=== PATIENT | male | born 1960 | race Two or more races ===

== ENCOUNTER 2020-08-11 10:10 | Inpatient (IN) | payer MEDICAID ==
[~2020-08-11] VITALS: Ht 154.9 cm; Wt 68.0 kg
[2020-08-11] MEDS ORDERED: Mylanta II UD 30ml ORAL ONE (10:15)
[2020-08-11] MEDS ORDERED: Lidocaine 2% Visc 15ml soln ORAL ONE (10:15)
[2020-08-11] MEDS ORDERED: Dicyclomine HCl 10mg/5ml oral soln ORAL ONE (10:15)
--- NOTE | 2020-08-11 10:21 | Emergency Room Report ---
History of Present Illness General Chief Complaint: Abdominal Pain Present Illness HPI 60-year-old homeless man with no known past medical history here with abdominal pain for 2 days. Patient says the abdominal pain is worse in the epigastric region. Radiates diffusely. Says he feels his abdomen is distended as well. Denies recent alcohol or drug use. Says he has been sleeping on the streets. Pain is sharp in nature, located in the epigastric region, radiates diffusely to the entire abdomen. Has felt nauseous but is not vomited. No diarrhea. Had n ormal bowel movement yesterday. No fevers, chills, chest pain, palpitation, shortness of breath, back pain, diarrhea, dysuria. 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 COVID-19 Screening: Negative COVID-19 COVID-19 Testing Source: [employer] Review of Systems All Other Systems: negative except mentioned in HPI Physical Exam Vital Signs Date Time Temp Pulse Resp B/P (MAP) Pulse Ox O2 Delivery O2 Flow Rate FiO2 08/11/20 10:06 99.0 85 18 150/90 (110) 98 Room Air Sp02 EP Interpretation: reviewed, normal General Appearance: alert, GCS 15, non-toxic, moderate distress, other - Pain Head: normocephalic, atraumatic Eyes: bilateral eye normal inspection, bilateral eye PERRL ENT: hearing grossly normal, normal pharynx, no angioedema, normal voice Neck: full range of motion, supple/symm/no masses Respiratory: chest non-tender, lungs clear, normal breath sounds, speaking full sentences Cardiovascular #1: regular rate, rhythm, no edema Cardiovascular #2: 2+ carotid (R), 2+ carotid (L), 2+ radial (R), 2+ radial (L), 2+ dorsalis pedis (R), 2+ dorsalis pedis (L) Gastrointestinal: normal bowel sounds, non-distended, no rebound, other - Epigastric pain, diffuse guarding. Abdomen distended Rectal: deferred Genitourinary: normal inspection, no CVA tenderness Musculoskeletal: back normal, normal range of motion, gait/station normal, non- tender Neurologic: alert, motor strength/tone normal, oriented x3, sensory intact, responsive, speech normal Psychiatric: judgement/insight normal, memory normal, mood/affect normal, no suicidal/homicidal ideation Lymphatic: no adenopathy Medical Decision Making Diagnostic Impression: Primary Impression: Pancreatitis Additional Impressions: Cholelithiasis Transaminitis Elevated bilirubin ER Course Right upper quadrant ultrasound: Gallstones within the gallbladder and one near the gallbladder neck. Mild gallbladder wall thickening. No pericholecystic fluid. Normal CBD CT abdomen pelvis: Peripancreatic inflammatory changes suggesting acute pancre atitis. No fluid collection or pseudocyst. Duodenal wall thickening likely secondary to pancreatic inflammation. Cholelithiasis. No appreciable gallbladder wall thickening or pericholecystic inflammatory changes. No biliary ductal dilatation Laboratory Tests Test 08/11/20 10:17 White Blood Count 11.3 K/UL (4.8-10.8) H Red Blood Count 5.90 M/UL (4.70-6.10) Hemoglobin 15.6 G/DL (14.2-18.0) Hematocrit 48.0 % (42.0-52.0) Mean Corpuscular Volume 81 FL (80-99) Mean Corpuscular Hemoglobin 26.5 PG (27.0-31.0) L Mean Corpuscular Hemoglobin Concent 32.5 G/DL (32.0-36.0) Red Cell Distribution Width 13.3 % (11.6-14.8) Platelet Count 149 K/UL (150-450) L Mean Platelet Volume 13.0 FL (6.5-10.1) H Neutrophils (%) (Auto) 78.6 % (45.0-75.0) H Lymphocytes (%) (Auto) 13.9 % (20.0-45.0) L Monocytes (%) (Auto) 6.4 % (1.0-10.0) Eosinophils (%) (Auto) 0.3 % (0.0-3.0) Basophils (%) (Auto) 0.7 % (0.0-2.0) Urine Color Yellow Urine Appearance Clear Urine pH 5 (4.5-8.0) Urine Specific [place] 1.015 (1.005-1.035) Urine Protein 1+ (NEGATIVE) H Urine Glucose (UA) 1+ (NEGATIVE) H Urine Ketones Negative (NEGATIVE) Urine Blood 1+ (NEGATIVE) H Urine Nitrite Negative (NEGATIVE) Urine Bilirubin 1+ (NEGATIVE) H Urine Ictotest Positive (NEGATIVE) Urine Urobilinogen 4 MG/DL (0.0-1.0) H Urine Leukocyte Esterase Negative (NEGATIVE) Urine RBC 0-2 /HPF (0 - 0) H Urine WBC 0-2 /HPF (0 - 0) Urine Squamous Epithelial Cells Occasional /LPF Urine Bacteria Occasional /HPF (NONE) Sodium Level 138 MMOL/L (136-145) Potassium Level 3.6 MMOL/L (3.5-5.1) Chloride Level 104 MMOL/L (98-107) Carbon Dioxide Level 22 MMOL/L (21-32) Anion Gap 12 mmol/L (5-15) Blood Urea Nitrogen 11 mg/dL (7-18) Creatinine 0.9 MG/DL (0.55-1.30) Estimated Glomerular Filtration Rate > 60 mL/min (>60) Glucose Level 157 MG/DL (74-106) H Calcium Level 8.7 MG/DL (8.5-10.1) Total Bilirubin 2.4 MG/DL (0.2-1.0) H Direct Bilirubin 1.9 MG/DL (0.0-0.3) H Aspartate Amino Transferase (AST) 590 U/L (15-37) H Alanine Aminotransferase (ALT) 513 U/L (12-78) H Alkaline Phosphatase 151 U/L (46-116) H Troponin I 0.000 ng/mL (0.000-0.056) Total Protein 7.9 G/DL (6.4-8.2) Albumin 3.8 G/DL (3.4-5.0) Globulin 4.1 g/dL Albumin/Globulin Ratio 0.9 (1.0-2.7) L Lipase > 2000 U/L (73-393) H Urine Opiates Screen Negative (NEGATIVE) Urine Barbiturates Screen Negative (NEGATIVE) Phencyclidine (PCP) Screen Negative (NEGATIVE) Urine Amphetamines Screen Negative (NEGATIVE) Urine Benzodiazepines Screen Negative (NEGATIVE) Urine Cocaine Screen Negative (NEGATIVE) Urine Marijuana (THC) Screen Negative (NEGATIVE) Serum Alcohol < 5 mg/dL 60-year-old male here with abdominal pain. Patient normal vital signs in the emergency department with normal oxygen saturation on room air. He was writhing in pain with severe abdominal pain. He was given morphine, Ativan, Haldol with eventual resolution of his symptoms. Labs remarkable for highly elevated lipase greater than 2000 and highly elevated liver function enzymes, AST and ALT in the 500s. Elevated direct and indirect bilirubin. Patient says he drinks alcohol occasionally but is not a daily drinker. Ultrasound right upper quadrant showed cholelithiasis but did not show any evidence of cholecystitis. CT abdomen pelvis showed pancreatitis without cholecystitis. Still some concern of possible gallstone pancreatitis. No other labs are available for comparison. Patient was given a single dose of Zosyn. Blood cultures pending. Urinalysis did show evidence of urinary tract infection. General surgeon Dr. Jean was informed. Patient to be [facility]. Last Vital Signs Date Time Temp Pulse Resp B/P (MAP) Pulse Ox O2 Delivery O2 Flow Rate FiO2 08/11/20 10:06 99.0 85 18 150/90 (110) 98 Room Air Scripts Unable to Obtain Active Prescriptions or Reported Meds David Taylor M.D. Aug 11, 2020 10:21
[2020-08-11] MEDS ORDERED: LORazepam Inj 2mg/ml 1ml IV ONE (10:30)
[2020-08-11] MEDS ORDERED: Morphine Sulfate 4mg/ml Inj (IV USE ONLY) IVP ONE (10:30)
[2020-08-11] MEDS ORDERED: Omnipaque-300 100ml vial INJ PRN (10:30)
[2020-08-11 10:34] LABS: BASOPHILS % (AUTO) 0.7 % (0.0-2.0); EOSINOPHILS % (AUTO) 0.3 % (0.0-3.0); HEMOGLOBIN 15.6 G/DL (14.2-18.0); LYMPHOCYTES % (AUTO) 13.9 % (20.0-45.0); MEAN CORPUSCULAR VOLUME 81 FL (80-99); MONOCYTES % (AUTO) 6.4 % (1.0-10.0); NEUTROPHILS % (AUTO) 78.6 % (45.0-75.0); PLATELET COUNT 149 K/UL (150-450); RED CELL DISTRIBUTION WIDTH 13.3 % (11.6-14.8); WHITE BLOOD COUNT 11.3 K/UL (4.8-10.8)
[2020-08-11] MEDS ORDERED: Haloperidol 5mg/ml Inj IM ONE ×2 (10:45)
[2020-08-11 10:46] LABS: ANION GAP 12 mmol/L (5-15); BLOOD UREA NITROGEN 11 mg/dL (7-18); CALCIUM 8.7 MG/DL (8.5-10.1); CARBON DIOXIDE 22 MMOL/L (21-32); CHLORIDE 104 MMOL/L (98-107); CREATININE 0.9 MG/DL (0.55-1.30); POTASSIUM 3.6 MMOL/L (3.5-5.1); SODIUM 138 MMOL/L (136-145)
[2020-08-11 10:55] LABS: ALANINE AMINOTRANSFERASE 513 U/L (12-78); ALBUMIN 3.8 G/DL (3.4-5.0); ALBUMIN/GLOBULIN RATIO 0.9 (1.0-2.7); ALKALINE PHOSPHATASE 151 U/L (46-116); ASPARTATE AMINO TRANSFERASE 590 U/L (15-37); BILIRUBIN,TOTAL 2.4 MG/DL (0.2-1.0)
[2020-08-11 10:59] LABS: BILIRUBIN,DIRECT 1.9 MG/DL (0.0-0.3)
--- NOTE | 2020-08-11 11:00 | NUR ---
ED Nurse Note:pt. came from home with abdominal pain and nausea, pt. is A/Ox4 ambulatory, VSS, blood and urine sent to labs, given IV meds and fluids, pt. had CT scan done
[2020-08-11 11:07] VITALS: BP 145/89
[2020-08-11 11:10] LABS: APPEARANCE,URINE CLEAR; BILIRUBIN, URINE 1+ (NEGATIVE); GLUCOSE, URINE (UA) 1+ (NEGATIVE); KETONES,URINE NEGATIVE (NEGATIVE); LEUKOCYTE ESTERASE ,URINE NEGATIVE (NEGATIVE); NITRITE,URINE NEGATIVE (NEGATIVE); PH,URINE 5 (4.5-8.0); PROTEIN,URINE 1+ (NEGATIVE); UROBILINOGEN,URINE 4 MG/DL (0.0-1.0)
[2020-08-11 11:22] LABS: COLOR,URINE YELLOW
[2020-08-11] MEDS ORDERED: Piperacillin/Tazobactam 3.375 GM in NS 110 ML IVPB ONE (11:30)
--- NOTE | 2020-08-11 12:16 | Diagnostic Imaging Report ---
Indication: Abdominal pain Technique: CT of the abdomen and pelvis utilizing automated exposure control with intravenous contrast. Venous scanning performed. Axial, sagittal and coronal reformats presented. CT dose: Total DLP 72.4 mGycm; CTDI vol 5.2 mGy Comparison: None Findings: Some patchy opacities noted in the dependent portions of the lungs. No dense consolidation. No pleural effusion or pneumothorax. Heart size within normal limits. No pericardial effusion. Hepatic contour is smooth. Cholelithiasis is seen. No gallbladder wall thickening or appreciable pericholecystic inflammatory changes. No biliary ductal dilatation. Hepatic veins and portal veins appear patent. Spleen and adrenal glands unremarkable. There is inflammatory stranding about the pancreas concerning for acute pancreatitis. Pancreatic enhancement appears uniform. No peripancreatic fluid collection. Inflammatory stranding is also noted around the second and third portions of the duodenum. The kidneys enhance symmetrically. There is no urinary tract stone or hydronephrosis. Bladder is unremarkable. Prostate is not significantly enlarged. There is no free intraperitoneal air. There is no evidence of bowel obstruction. Appendix is not definitively visualized however there is no findings to seen to suggest acute appendicitis. Some mildly prominent small bowel loops are noted which may be related to reactive ileus. There is a small hiatal hernia. The abdominal aorta is normal in caliber. Small retroperitoneal lymph nodes are seen, possibly reactive in etiology. Some calcifications are noted in the subcarinal region which may represent partially calcified lymph nodes. There are degenerative changes in the spine. No acute fracture. No subcutis fluid collection or abscess. IMPRESSION: * Peripancreatic inflammatory changes suggesting acute pancreatitis. Correlation with pancreatic enzymes recommended. No evidence to suggest pancreatic necrosis at this time. No peripancreatic fluid collection/pseudocyst. * Wall thickening and inflammatory changes about the second portion of the duodenum, likely secondary to pancreatic inflammation. * Some mildly prominent small bowel loops which may represent a mild reactive ileus. No evidence of small bowel obstruction. * Cholelithiasis. * Some patchy densities noted in the dependent portions of the lungs which may represent atelectatic changes. Subtle infiltrates not excluded. Correlation with clinical findings recommended. * Small hiatal hernia The CT scanner at [facility] is accredited by the [employer] and the scans are performed using protocols designed to limit radiation exposure to as low as reasonably achievable to attain images of sufficient resolution adequate for diagnostic evaluation.
--- NOTE | 2020-08-11 12:19 | Diagnostic Imaging Report ---
Indication: Abdominal pain Technique: Multiplanar grayscale and duplex Doppler imaging of the abdomen. Comparison: Correlation made to concurrent abdominal CT Findings: Pancreas is obscured by overlying bowel gas. Adjacent slightly increased echogenicity of the liver. Right hepatic lobe is normal in size. No focal hepatic mass lesion noted sonographically. Imaged hepatic veins are patent. Main portal vein is patent with normal direction of flow. There is cholelithiasis. No gallbladder wall thickening. Sonographic Olson's sign reported as negative. Some hypoattenuation is noted along the gallbladder fossa which may represent focal fatty sparing. No intrahepatic or extra hepatic biliary ductal dilatation. Common bile duct measures 6 mm. Kidneys demonstrate normal echogenicity. There is no hydronephrosis or sonographically appreciable renal stone. Spleen is unremarkable in appearance. Limited evaluation of the abdominal aorta which is obscured by overlying bowel gas. Visualized portions appear normal caliber. No ascites is demonstrated. IMPRESSION: * Cholelithiasis. Negative sonographic Olson's sign. * No biliary ductal dilatation. * Increased hepatic echogenicity most commonly related to hepatic steatosis. Additional hepatocellular diseases to be excluded clinically. * Pancreas obscured by overlying bowel gas.
--- NOTE | 2020-08-11 13:05 | General Progress Note ---
Subjective ROS Limited/Unobtainable: Yes Allergies: Coded Allergies: No Known Allergies (Unverified , 08/11/20) Objective Last 24 Hour Vital Signs Date Time Temp Pulse Resp B/P (MAP) Pulse Ox O2 Delivery O2 Flow Rate FiO2 08/11/20 11:14 102 18 145/89 98 08/11/20 11:14 99.0 08/11/20 11:08 102 18 Room Air 08/11/20 11:07 99.0 102 18 145/89 98 Room Air 08/11/20 10:37 85 18 150/90 98 08/11/20 10:06 99.0 85 18 150/90 (110) 98 Room Air Laboratory Tests 08/11/20 10:17: White Blood Count 11.3H, Red Blood Count 5.90, Hemoglobin 15.6, Hematocrit 48.0, Mean Corpuscular Volume 81, Mean Corpuscular Hemoglobin 26.5L, Mean Corpuscular Hemoglobin Concent 32.5, Red Cell Distribution Width 13.3, Platelet Count 149L, Mean Platelet Volume 13.0H, Neutrophils (%) (Auto) 78.6H, Lymphocytes (%) (Auto) 13.9L, Monocytes (%) (Auto) 6.4, Eosinophils (%) (Auto) 0.3, Basophils (%) (Auto) 0.7, Urine Color Yellow, Urine Appearance Clear, Urine pH 5, Urine Specific [place] 1.015, Urine Protein 1+H, Urine Glucose (UA) 1+H, Urine Ketones Negative, Urine Blood 1+H, Urine Nitrite Negative, Urine Bilirubin 1+H, Urine Ictotest Positive, Urine Urobilinogen 4H, Urine Leukocyte Esterase Negative, Urine RBC 0-2H, Urine WBC 0-2, Urine Squamous Epithelial Cells Occasional, Urine Bacteria Occasional, Sodium Level 138, Potassium Level 3.6, Chloride Level 104, Carbon Dioxide Level 22, Anion Gap 12, Blood Urea Nitrogen 11, Creatinine 0.9, Estimat Glomerular Filtration Rate > 60, Glucose Level 157H, Calcium Level 8.7, Total Bilirubin 2.4H, Direct Bilirubin 1.9H, Aspartate Amino Transf (AST/SGOT) 590H, Alanine Aminotransferase (ALT/SGPT) 513H, Alkaline Phosphatase 151H, Troponin I 0.000, Total Protein 7.9, Albumin 3.8, Globulin 4.1, Albumin/Globulin Ratio 0.9L, Lipase > 2000H, Urine Opiates Screen Negative, Urine Barbiturates Screen Negative, Phencyclidine (PCP) Screen Negative, Urine Amphetamines Screen Negative, Urine Benzodiazepines Screen Negative, Urine Cocaine Screen Negative, Urine Marijuana (THC) Screen Negative, Serum Alcohol < 5 Height (Feet): 5 Height (Inches): 4.00 Weight (Pounds): 150 General Appearance: alert EENT: normal ENT inspection Neck: supple Cardiovascular: normal rate Respiratory/Chest: decreased breath sounds Abdomen: normal bowel sounds, non tender, soft Extremities: non-tender Assessment/Plan Problem List: (1) Cholelithiasis ICD Codes: K80.20 - Calculus of gallbladder without cholecystitis without obstruction SNOMED: 902415199, 199950423 (2) Pancreatitis ICD Codes: K85.90 - Acute pancreatitis without necrosis or infection, unspecified SNOMED: 54963261, 802879225 (3) Transaminitis ICD Codes: R74.01 - Elevation of levels of liver transaminase levels SNOMED: 192964893, 771057174 (4) Elevated bilirubin ICD Codes: R17 - Unspecified jaundice SNOMED: 21635232 Assessment/Plan: us and CT reviewed MRCP npo ivf pain control hepatitis panel repeat labs surg consult Thierno Dai MD Aug 11, 2020 13:04
--- NOTE | 2020-08-11 13:08 | Consultation ---
History of Present Illness General Date patient seen: Aug 11, 2020 Reason for Hospitalization: Abdominal Pain Present Illness HPI 60-year-old male presented [facility] complaining of worsening abdominal pain for 2 days. Intermittent nausea no current emesis. Identified to have leukocytosis elevated bilirubin LFTs and lipase. CT and ultrasound identified pancreatitis potentially gallstone with etiology. CBD otherwise normal. No positive Olson's. Surgery called to evaluate assist with care. Patient seen, patient evaluate, chart reviewed Allergies: Coded Allergies: No Known Allergies (Unverified , 08/11/20) COVID-19 Screening Contact w/high risk pt: No Experienced COVID-19 symptoms?: No Medication History Unable to Obtain Active Prescriptions or Reported Meds Patient History History Provided By: Patient, Medical Record, PMD Healthcare decision maker Resuscitation status Advanced Directive on File Past Medical/Surgical History Past Medical/Surgical History: (1) Cholelithiasis (2) Pancreatitis (3) Transaminitis (4) Elevated bilirubin Review of Systems Review of Symptoms General ROS: no weight loss or fever Psychological ROS: no depression or mood changes, no memory loss Ophthalmic ROS: no visual changes or eye irritation ENT ROS: no nasal congestion, hearing loss, dizziness Allergy and Immunology ROS: no allergic symptoms or urticaria Hematological and Lymphatic ROS: no swollen glands, unusual bleeding or bruising Endocrine ROS: no polyuria, polydipsia, weight changes, temperature intolerance Respiratory ROS: no cough, shortness of breath, or wheezing Cardiovascular ROS: no chest pain or dyspnea on exertion Gastrointestinal ROS: + abdominal pain, bright red blood in stool. Musculoskeletal ROS: no myalgias or arthralgias Neurological ROS: no TIA or stroke symptoms Dermatological ROS: no new or changing skin lesions, rashes or pruritis Physical Exam Physical Exam General appearance: alert, cooperative, no distress, appears stated age Head: Normocephalic, without obvious abnormality, atraumatic Eyes: conjunctivae/corneas clear. PERRL, EOM's intact. Fundi benign Throat: Lips, mucosa, and tongue normal. Teeth and gums normal Neck: supple, symmetrical, trachea midline, no adenopathy, thyroid: not enlarged, symmetric, no tenderness/mass/nodules, no carotid bruit and no JVD Lungs: clear to auscultation bilaterally Heart: regular rate and rhythm, S1, S2 normal, no murmur, click, rub or gallop Abdomen: soft, non-tender. Bowel sounds normal. No masses, no organomegaly Extremities: extremities normal, atraumatic, no cyanosis or edema Pulses: 2+ and symmetric Skin: Skin color, texture, turgor normal. No rashes or lesions Neurologic: Grossly normal Last 24 Hour Vital Signs Date Time Temp Pulse Resp B/P (MAP) Pulse Ox O2 Delivery O2 Flow Rate FiO2 08/11/20 11:14 102 18 145/89 98 08/11/20 11:14 99.0 08/11/20 11:08 102 18 Room Air 08/11/20 11:07 99.0 102 18 145/89 98 Room Air 08/11/20 10:37 85 18 150/90 98 08/11/20 10:06 99.0 85 18 150/90 (110) 98 Room Air Laboratory Tests Test 08/11/20 10:17 White Blood Count 11.3 K/UL (4.8-10.8) H Red Blood Count 5.90 M/UL (4.70-6.10) Hemoglobin 15.6 G/DL (14.2-18.0) Hematocrit 48.0 % (42.0-52.0) Mean Corpuscular Volume 81 FL (80-99) Mean Corpuscular Hemoglobin 26.5 PG (27.0-31.0) L Mean Corpuscular Hemoglobin Concent 32.5 G/DL (32.0-36.0) Red Cell Distribution Width 13.3 % (11.6-14.8) Platelet Count 149 K/UL (150-450) L Mean Platelet Volume 13.0 FL (6.5-10.1) H Neutrophils (%) (Auto) 78.6 % (45.0-75.0) H Lymphocytes (%) (Auto) 13.9 % (20.0-45.0) L Monocytes (%) (Auto) 6.4 % (1.0-10.0) Eosinophils (%) (Auto) 0.3 % (0.0-3.0) Basophils (%) (Auto) 0.7 % (0.0-2.0) Urine Color Yellow Urine Appearance Clear Urine pH 5 (4.5-8.0) Urine Specific [place] 1.015 (1.005-1.035) Urine Protein 1+ (NEGATIVE) H Urine Glucose (UA) 1+ (NEGATIVE) H Urine Ketones Negative (NEGATIVE) Urine Blood 1+ (NEGATIVE) H Urine Nitrite Negative (NEGATIVE) Urine Bilirubin 1+ (NEGATIVE) H Urine Ictotest Positive (NEGATIVE) Urine Urobilinogen 4 MG/DL (0.0-1.0) H Urine Leukocyte Esterase Negative (NEGATIVE) Urine RBC 0-2 /HPF (0 - 0) H Urine WBC 0-2 /HPF (0 - 0) Urine Squamous Epithelial Cells Occasional /LPF Urine Bacteria Occasional /HPF (NONE) Sodium Level 138 MMOL/L (136-145) Potassium Level 3.6 MMOL/L (3.5-5.1) Chloride Level 104 MMOL/L (98-107) Carbon Dioxide Level 22 MMOL/L (21-32) Anion Gap 12 mmol/L (5-15) Blood Urea Nitrogen 11 mg/dL (7-18) Creatinine 0.9 MG/DL (0.55-1.30) Estimat Glomerular Filtration Rate > 60 mL/min (>60) Glucose Level 157 MG/DL (74-106) H Calcium Level 8.7 MG/DL (8.5-10.1) Total Bilirubin 2.4 MG/DL (0.2-1.0) H Direct Bilirubin 1.9 MG/DL (0.0-0.3) H Aspartate Amino Transf (AST/SGOT) 590 U/L (15-37) H Alanine Aminotransferase (ALT/SGPT) 513 U/L (12-78) H Alkaline Phosphatase 151 U/L (46-116) H Troponin I 0.000 ng/mL (0.000-0.056) Total Protein 7.9 G/DL (6.4-8.2) Albumin 3.8 G/DL (3.4-5.0) Globulin 4.1 g/dL Albumin/Globulin Ratio 0.9 (1.0-2.7) L Lipase > 2000 U/L (73-393) H Urine Opiates Screen Negative (NEGATIVE) Urine Barbiturates Screen Negative (NEGATIVE) Phencyclidine (PCP) Screen Negative (NEGATIVE) Urine Amphetamines Screen Negative (NEGATIVE) Urine Benzodiazepines Screen Negative (NEGATIVE) Urine Cocaine Screen Negative (NEGATIVE) Urine Marijuana (THC) Screen Negative (NEGATIVE) Serum Alcohol < 5 mg/dL Height (Feet): 5 Height (Inches): 4.00 Weight (Pounds): 150 Medications Current Medications Medications (Trade) Dose Ordered Sig/[place] Route PRN Reason Start Time Stop Time Status Last Admin Dose Admin Dextrose/Sodium Chloride 1,000 ml @ 150 mls/hr Q6H40M IV 08/11/20 16:00 09/10/20 15:59 Iohexol (OMNIPAQUE-300 100ml) 100 ml NOW PRN INJ Radiology Procedure 08/11/20 10:30 08/13/20 10:29 Assessment/Plan Problem List: (1) Cholelithiasis ICD Codes: K80.20 - Calculus of gallbladder without cholecystitis without obstruction SNOMED: 048367202, 020276734 (2) Pancreatitis Assessment & Plan: 60-year-old male with likely gallstone pancreatitis. Afebrile hemodynamic stable leukocytosis elevated LFTs elevated bilirubin elevated lipase. CT reviewed pancreatitis identified. Ultrasound noted cholelithiasis no gallbladder wall thickening no Olson's no acute cholecystitis. CBD not dilated. Potential passage of stone. Admit for IV fluids n.p.o. bowel rest. Will trend LFTs. May need MRCP versus ERCP we will discuss with GI. N.p.o. for now IV fluids meds reviewed orders placed Some patchy opacities noted in the dependent portions of the lungs. No dense consolidation. No pleural effusion or pneumothorax. Heart size within normal limits. No pericardial effusion. Hepatic contour is smooth. Cholelithiasis is seen. No gallbladder wall thickening or appreciable pericholecystic inflammatory changes. No biliary ductal dilatation. Hepatic veins and portal veins appear patent. Spleen and adrenal glands unremarkable. There is inflammatory stranding about the pancreas concerning for acute pancreatitis. Pancreatic enhancement appears uniform. No peripancreatic fluid collection. Inflammatory stranding is also noted around the second and third portions of the duodenum. The kidneys enhance symmetrically. There is no urinary tract stone or hydronephrosis. Bladder is unremarkable. Prostate is not significantly enlarged. There is no free intraperitoneal air. There is no evidence of bowel obstruction. Appendix is not definitively visualized however there is no findings to seen to suggest acute appendicitis. Some mildly prominent small bowel loops are noted which may be related to reactive ileus. There is a small hiatal hernia. The abdominal aorta is normal in caliber. Small retroperitoneal lymph nodes are seen, possibly reactive in etiology. Some calcifications are noted in the subcarinal region which may represent partially calcified lymph nodes. There are degenerative changes in the spine. No acute fracture. No subcutis fluid collection or abscess. IMPRESSION: * Peripancreatic inflammatory changes suggesting acute pancreatitis. Correlation with pancreatic enzymes recommended. No evidence to suggest pancreatic necrosis at this time. No peripancreatic fluid collection/pseudocyst. * Wall thickening and inflammatory changes about the second portion of the duodenum, likely secondary to pancreatic inflammation. * Some mildly prominent small bowel loops which may represent a mild reactive ileus. No evidence of small bowel obstruction. * Cholelithiasis. * Some patchy densities noted in the dependent portions of the lungs which may represent atelectatic changes. Subtle infiltrates not excluded. Correlation with clinical findings recommended. * Small hiatal hernia ICD Codes: K85.90 - Acute pancreatitis without necrosis or infection, unspecified SNOMED: 72827525, 925468419 (3) Transaminitis ICD Codes: R74.01 - Elevation of levels of liver transaminase levels SNOMED: 957719719, 827304186 (4) Elevated bilirubin ICD Codes: R17 - Unspecified jaundice SNOMED: 19652603 Juancarlos Jean Aug 11, 2020 13:08
[2020-08-11] MEDS ORDERED: LORazepam 1mg tab ORAL PRN (13:15)
[2020-08-11] MEDS ORDERED: Mylanta II UD 30ml ORAL PRN (13:15)
--- NOTE | 2020-08-11 13:50 | NUR ---
HAND-OFF: Report given to Mi pt. was moved to isolation room due to covid positive test results.
--- NOTE | 2020-08-11 13:56 | NUR ---
ED Nurse Note: PT EN ROUTE TO MRI
[2020-08-11 14:00] VITALS: BP 151/85
--- NOTE | 2020-08-11 14:37 | NUR ---
ED Nurse Note: Report given to STEVIE Dubose on 4E
--- NOTE | 2020-08-11 15:10 | NUR ---
ED Nurse Note: pt transferred safely to 4E
[2020-08-11] MEDS: NS w/KCl 20mEq 1000ml 1,000 ML IV SCH (15:16)
--- NOTE | 2020-08-11 15:26 | NUR ---
NURSE NOTES: RN received report from Yanick. RN received the patient in bed, [id number], no s/s of respiratory distress on room air or pain noted. Bed in lowest position and locked. Call light within reach. Bed alarm on. Belongings verified with Yanick. Will continue to monitor.
[2020-08-11] MEDS ORDERED: D5 1/2NS 1,000 ML IV SCH (16:00)
--- NOTE | 2020-08-11 16:00 | NUR ---
NURSE NOTES: Patient had low grade fever of 102.0 and hypertension of 179/102. Dr. Tellez and Dr. Gómez and Dr. Cui made aware. RN received order for Zosyn and Vanco per pharmacy dose and clonidine, Tylenol and cooling measures. RN verified each order one by one and carried out. Will continue to monitor.
--- NOTE | 2020-08-11 16:51 | Diagnostic Imaging Report ---
Indication: Abdominal pain Technique: Coronal and axial single shot fast spin-echo breath-hold, axial T2 FRFSE, 2-D thick slab MRCP, AXIAL 2-D FIESTA fat saturated, axial 3-D dual echo breath-hold, water weighted axial LAVA FLEX, revealed 3-D MRCP images were obtained of the abdomen. MIP reconstructions were generated of the bile ducts on an integrated workstation Comparison: Abdominal sonogram, abdomen pelvis CT scan of earlier the same day Findings: There is some image degradation due to motion artifact. Gallstones are seen within the gallbladder. The bile ducts are normal in caliber, and no filling defects are demonstrated. There is no gallbladder wall thickening nor pericholecystic fluid. Considerable edema is seen surrounding the pancreas, in the mesenteric root, and tracking along the anterior retroperitoneum. No discrete organized fluid collection is demonstrated. The pancreas is somewhat prominent. The pancreatic duct is nondilated. No definite focal pancreatic abnormality. Hepatic signal decreased on the fat-suppressed images suggests hepatic steatosis, also described on prior CT scan. No focal liver lesion demonstrated. The spleen, adrenals, kidneys are unremarkable. The bladder appears unremarkable Impression: Peripancreatic phlegmon, also described on recent CT scan, indicative of acute pancreatitis. Cholelithiasis. Negative for biliary ductal dilatation or evidence of choledocholithiasis. No gallbladder wall thickening Fatty liver, also previously described
[2020-08-11] MEDS ORDERED: cloNIDine 0.2mg Tab ORAL PRN (17:30)
[2020-08-11 17:33] VITALS: BP 179/102
[2020-08-11 20:00] VITALS: BP 126/78
[2020-08-11] MEDS ORDERED: Vancomycin 1.5gm/300ml Premix IVPB ONE (20:00)
--- NOTE | 2020-08-11 20:10 | NUR ---
NURSE HAND-OFF: Important Events on Shift:hypertension, low grade fever Patient Status: unstable Diet: NPO Pending Orders: n/a Pending Results/Labs:n/a Pending MD notification:n/a Latest Vital Signs: Temperature 100.2 , Pulse 107 , B/P 179 /102 , Respiratory Rate 20 , O2 SAT 95 , Room Air, O2 Flow Rate . Vital Sign Comment: hypertension, high body temperature Latest Boothe Fall Score: 30 Fall Risk: Medium Risk Safety Measures: Call light , Bed Alarm , Side Rails Side Rails x3, Bed position . Fall Precautions: Yellow Socks Yellow Gown Door Sign Patient Fall Education Report given to
--- NOTE | 2020-08-11 20:11 | NUR ---
NURSE NOTES: Received patient in no apparent distress. A&OX4. IV site patent and intact. Bed in lowest position. Call light within reach. Will continue to monitor.
[2020-08-11] MEDS: Docusate 100mg cap ORAL SCH (21:42)
[2020-08-11] MEDS: Heparin 5000 units/ml inj SUBQ SCH (21:43)
[2020-08-11] MEDS: Piperacillin/Tazobactam 3.375 GM in NS 110 ML IVPB SCH (22:22)
[2020-08-12] VITALS: BP 139/89
[2020-08-12] MEDS: NS w/KCl 20mEq 1000ml 1,000 ML IV SCH ×2 (01:02→05:18)
[2020-08-12 04:00] VITALS: BP 154/90
[2020-08-12] MEDS: Piperacillin/Tazobactam 3.375 GM in NS 110 ML IVPB SCH ×3 (05:18→21:35)
[2020-08-12 06:10] LABS: BASOPHILS % (AUTO) 1.1 % (0.0-2.0); EOSINOPHILS % (AUTO) 0.4 % (0.0-3.0); HEMATOCRIT 41.4 % (42.0-52.0); HEMOGLOBIN 13.8 G/DL (14.2-18.0); LYMPHOCYTES % (AUTO) 18.5 % (20.0-45.0); MEAN CORPUSCULAR VOLUME 82 FL (80-99); MONOCYTES % (AUTO) 5.6 % (1.0-10.0); NEUTROPHILS % (AUTO) 74.4 % (45.0-75.0); PLATELET COUNT 131 K/UL (150-450); RED BLOOD COUNT 5.05 M/UL (4.70-6.10); RED CELL DISTRIBUTION WIDTH 13.8 % (11.6-14.8)
[2020-08-12 06:18] LABS: INR 1.1 (0.9-1.1)
[2020-08-12 06:24] LABS: AMMONIA 24 umol/L (11-32)
[2020-08-12 06:33] LABS: ALANINE AMINOTRANSFERASE 400 U/L (12-78); ALBUMIN 3.2 G/DL (3.4-5.0); ALBUMIN/GLOBULIN RATIO 0.9 (1.0-2.7); ALKALINE PHOSPHATASE 137 U/L (46-116); AMYLASE 405 U/L (25-115); ANION GAP 9 mmol/L (5-15); ASPARTATE AMINO TRANSFERASE 230 U/L (15-37); BILIRUBIN,TOTAL 2.3 MG/DL (0.2-1.0); BLOOD UREA NITROGEN 10 mg/dL (7-18); CALCIUM 8.2 MG/DL (8.5-10.1); CARBON DIOXIDE 25 MMOL/L (21-32); CHLORIDE 106 MMOL/L (98-107); CREATININE 0.7 MG/DL (0.55-1.30); POTASSIUM 3.4 MMOL/L (3.5-5.1); SODIUM 139 MMOL/L (136-145)
[2020-08-12 06:36] LABS: BILIRUBIN,DIRECT 0.8 MG/DL (0.0-0.3)
--- NOTE | 2020-08-12 07:35 | NUR ---
NURSE HAND-OFF: Important Events on Shift: No fever noted, BP stable Patient Status: Diet: NPO Pending Orders: Pending Results/Labs: Pending MD notification: Latest Vital Signs: Temperature 98.2 , Pulse 89 , B/P 154 /90 , Respiratory Rate 20 , O2 SAT 96 , Room Air, O2 Flow Rate . Vital Sign Comment: Latest Boothe Fall Score: 20 Fall Risk: Low Risk Safety Measures: Call light Within Reach, Bed Alarm Zone 1, Side Rails Side Rails x2, Bed position Low and Locked. Fall Precautions: Patient Fall Education Report given to Richard HUBBARD.
[2020-08-12 08:00] VITALS: BP 144/93
[2020-08-12] MEDS: Heparin 5000 units/ml inj SUBQ SCH ×2 (08:48→21:00)
[2020-08-12] MEDS: Pantoprazole Inj IV SCH (08:48)
[2020-08-12] MEDS: Docusate 100mg cap ORAL SCH ×2 (08:53→21:08)
[2020-08-12] MEDS: Vancomycin 750mg/NS 275ml IVPB SCH ×4 (08:53→21:17)
--- NOTE | 2020-08-12 09:50 | Consultation ---
History of Present Illness General Date patient seen: Aug 12, 2020 Time patient seen: 11:53 Chief Complaint: Abdominal Pain Referring physician: PCP Reason for Consultation: COVID+ Present Illness HPI 60yo homeless man who p/w abd pain x2 days, found to have acute pancreatitis as well as COVID positive. Pt has been AF, HDS in house. Mild leukocytosis to 11 now improved. 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 Last drug use about 6 mo ago he says. Allergies: Coded Allergies: No Known Allergies (Unverified , 08/11/20) Medication History Unable to Obtain Active Prescriptions or Reported Meds Patient History Healthcare decision maker Resuscitation status Advanced Directive on File Review of Systems ROS Narrative 10-point ROS neg except as noted in HPI Physical Exam Physical Exam Narrative Gen: NAD HEENT: NCAT Pulm: BL chest rise on RA, non-labored Abd: Soft, TTP in epigastric and lower abd, no rebound or guarding Ext: No c/c/e Skin: No visible rashes Neuro: Awake, alert, interactive Last 24 Hour Vital Signs Date Time Temp Pulse Resp B/P (MAP) Pulse Ox O2 Delivery O2 Flow Rate FiO2 08/12/20 04:00 98.2 89 20 154/90 (111) 96 08/12/20 00:00 98.7 78 20 139/89 (106) 97 08/11/20 21:00 Room Air 08/11/20 20:00 99.4 86 16 126/78 (94) 99 08/11/20 18:39 100.2 08/11/20 17:39 179/102 08/11/20 17:33 100.2 107 20 179/102 (127) 95 08/11/20 16:07 Room Air 08/11/20 15:10 98.8 98 18 141/84 99 Room Air 08/11/20 14:00 98.4 103 18 151/85 96 Room Air 08/11/20 11:14 102 18 145/89 98 08/11/20 11:14 99.0 08/11/20 11:08 102 18 Room Air 08/11/20 11:07 99.0 102 18 145/89 98 Room Air 08/11/20 10:37 85 18 150/90 98 08/11/20 10:06 99.0 85 18 150/90 (110) 98 Room Air Intake and Output 08/11/20 08/12/20 19:00 07:00 Intake Total 100 ml 737.5 ml Output Total 500 ml Balance 100 ml 237.5 ml Intake IV Total 100 ml 737.5 ml Output Urine Total 500 ml # Voids 2 3 # Bowel Movements 1 1 Laboratory Tests Test 08/11/20 10:17 08/12/20 05:58 White Blood Count 11.3 K/UL (4.8-10.8) H 8.0 K/UL (4.8-10.8) Red Blood Count 5.90 M/UL (4.70-6.10) 5.05 M/UL (4.70-6.10) Hemoglobin 15.6 G/DL (14.2-18.0) 13.8 G/DL (14.2-18.0) L Hematocrit 48.0 % (42.0-52.0) 41.4 % (42.0-52.0) L Mean Corpuscular Volume 81 FL (80-99) 82 FL (80-99) Mean Corpuscular Hemoglobin 26.5 PG (27.0-31.0) L 27.3 PG (27.0-31.0) Mean Corpuscular Hemoglobin Concent 32.5 G/DL (32.0-36.0) 33.3 G/DL (32.0-36.0) Red Cell Distribution Width 13.3 % (11.6-14.8) 13.8 % (11.6-14.8) Platelet Count 149 K/UL (150-450) L 131 K/UL (150-450) L Mean Platelet Volume 13.0 FL (6.5-10.1) H 11.7 FL (6.5-10.1) H Neutrophils (%) (Auto) 78.6 % (45.0-75.0) H 74.4 % (45.0-75.0) Lymphocytes (%) (Auto) 13.9 % (20.0-45.0) L 18.5 % (20.0-45.0) L Monocytes (%) (Auto) 6.4 % (1.0-10.0) 5.6 % (1.0-10.0) Eosinophils (%) (Auto) 0.3 % (0.0-3.0) 0.4 % (0.0-3.0) Basophils (%) (Auto) 0.7 % (0.0-2.0) 1.1 % (0.0-2.0) Urine Color Yellow Urine Appearance Clear Urine pH 5 (4.5-8.0) Urine Specific [place] 1.015 (1.005-1.035) Urine Protein 1+ (NEGATIVE) H Urine Glucose (UA) 1+ (NEGATIVE) H Urine Ketones Negative (NEGATIVE) Urine Blood 1+ (NEGATIVE) H Urine Nitrite Negative (NEGATIVE) Urine Bilirubin 1+ (NEGATIVE) H Urine Ictotest Positive (NEGATIVE) Urine Urobilinogen 4 MG/DL (0.0-1.0) H Urine Leukocyte Esterase Negative (NEGATIVE) Urine RBC 0-2 /HPF (0 - 0) H Urine WBC 0-2 /HPF (0 - 0) Urine Squamous Epithelial Cells Occasional /LPF Urine Bacteria Occasional /HPF (NONE) Sodium Level 138 MMOL/L (136-145) 139 MMOL/L (136-145) Potassium Level 3.6 MMOL/L (3.5-5.1) 3.4 MMOL/L (3.5-5.1) L Chloride Level 104 MMOL/L (98-107) 106 MMOL/L (98-107) Carbon Dioxide Level 22 MMOL/L (21-32) 25 MMOL/L (21-32) Anion Gap 12 mmol/L (5-15) 9 mmol/L (5-15) Blood Urea Nitrogen 11 mg/dL (7-18) 10 mg/dL (7-18) Creatinine 0.9 MG/DL (0.55-1.30) 0.7 MG/DL (0.55-1.30) Estimat Glomerular Filtration Rate > 60 mL/min (>60) > 60 mL/min (>60) Glucose Level 157 MG/DL (74-106) H 126 MG/DL (74-106) H Calcium Level 8.7 MG/DL (8.5-10.1) 8.2 MG/DL (8.5-10.1) L Total Bilirubin 2.4 MG/DL (0.2-1.0) H 2.3 MG/DL (0.2-1.0) H Direct Bilirubin 1.9 MG/DL (0.0-0.3) H 0.8 MG/DL (0.0-0.3) H Aspartate Amino Transf (AST/SGOT) 590 U/L (15-37) H 230 U/L (15-37) H Alanine Aminotransferase (ALT/SGPT) 513 U/L (12-78) H 400 U/L (12-78) H Alkaline Phosphatase 151 U/L (46-116) H 137 U/L (46-116) H Troponin I 0.000 ng/mL (0.000-0.056) Total Protein 7.9 G/DL (6.4-8.2) 6.6 G/DL (6.4-8.2) Albumin 3.8 G/DL (3.4-5.0) 3.2 G/DL (3.4-5.0) L Globulin 4.1 g/dL 3.4 g/dL Albumin/Globulin Ratio 0.9 (1.0-2.7) L 0.9 (1.0-2.7) L Lipase > 2000 U/L (73-393) H > 2000 U/L (73-393) H Urine Opiates Screen Negative (NEGATIVE) Urine Barbiturates Screen Negative (NEGATIVE) Phencyclidine (PCP) Screen Negative (NEGATIVE) Urine Amphetamines Screen Negative (NEGATIVE) Urine Benzodiazepines Screen Negative (NEGATIVE) Urine Cocaine Screen Negative (NEGATIVE) Urine Marijuana (THC) Screen Negative (NEGATIVE) Serum Alcohol < 5 mg/dL Prothrombin Time 11.9 SEC (9.30-11.50) H Prothromb Time [place] Ratio 1.1 (0.9-1.1) Activated Partial Thromboplast Time 26 SEC (23-33) Ammonia 24 umol/L (11-32) Amylase Level 405 U/L (25-115) H Hepatitis A IgM Antibody Pending Hepatitis B Surface Antigen Pending Hepatitis B Core IgM Antibody Pending Hepatitis C Antibody Pending Microbiology Date/Time Source Procedure Growth Status 08/11/20 20:16 Rectum Received 08/11/20 13:20 Nasopharynx SARS-CoV-2 RdRp Gene Assay - Final Complete Height (Feet): 5 Height (Inches): 1.00 Weight (Pounds): 150 Medications Current Medications Medications (Trade) Dose Ordered Sig/[place] Route PRN Reason Start Time Stop Time Status Last Admin Dose Admin Acetaminophen (Tylenol) 650 mg Q4H PRN ORAL Temp >100.5 08/11/20 13:15 09/10/20 13:14 08/11/20 18:09 Al Hydroxide/Mg Hydroxide (Mylanta II) 30 ml Q6H PRN ORAL dyspepsia 08/11/20 13:15 09/10/20 13:14 Clonidine HCl (Catapres tab) 0.2 mg Q2H PRN ORAL For High Blood Pressure 08/11/20 17:30 11/09/20 17:29 08/11/20 17:39 Dextrose (Dextrose 50%) 25 ml Q30M PRN IV Hypoglycemia 08/11/20 13:15 11/09/20 13:14 Dextrose (Dextrose 50%) 50 ml Q30M PRN IV Hypoglycemia 08/11/20 13:15 11/09/20 13:14 Diphenhydramine HCl (Benadryl) 25 mg Q6H PRN ORAL Itching/Pruritis 08/11/20 13:15 09/10/20 13:14 Docusate Sodium (Colace) 100 mg EVERY 12 HOURS ORAL 08/11/20 21:00 09/10/20 20:59 08/12/20 08:53 Heparin Sodium (Porcine) (Heparin 5000 units/ml) 5,000 units EVERY 12 HOURS SUBQ 08/11/20 21:00 09/25/20 20:59 08/12/20 08:48 Iohexol (OMNIPAQUE-300 100ml) 100 ml NOW PRN INJ Radiology Procedure 08/11/20 10:30 08/13/20 10:29 Lorazepam (Ativan) 1 mg Q4H PRN ORAL For Anxiety 08/11/20 13:15 08/18/20 13:14 Morphine Sulfate (Morphine Sulfate) 2 mg Q2H PRN IVP Moderate Pain (Pain Scale 4-6) 08/11/20 13:15 08/18/20 13:14 Ondansetron HCl (Zofran) 4 mg Q6H PRN IVP Nausea & Vomiting 08/11/20 13:15 09/10/20 13:14 Pantoprazole (Protonix) 40 mg DAILY IV 08/12/20 09:00 09/11/20 08:59 08/12/20 08:48 Piperacillin Sod/ Tazobactam Sod 3.375 gm/Sodium Chloride 110 ml @ 27.5 mls/hr EVERY 8 HOURS IVPB 08/11/20 22:00 08/16/20 21:59 08/12/20 05:18 Potassium Chloride/Sodium Chloride 1,000 ml @ 100 mls/hr Q10H IV 08/11/20 15:00 09/10/20 14:59 08/12/20 05:18 Temazepam (Restoril) 15 mg HSPRN PRN ORAL Insomnia 08/11/20 13:15 08/18/20 13:14 Vancomycin HCl (Vanco pharmacy to dose) 1 ea DAILY PRN MISC Per rx protocol 08/11/20 18:30 09/10/20 18:29 Vancomycin HCl 750 mg/Sodium Chloride 275 ml @ 183.333 mls/hr Q12HR@0800,2000 IVPB 08/12/20 08:00 08/17/20 07:59 08/12/20 08:53 Assessment/Plan Assessment/Plan: 60yo M with: COVID positive Satting well on RA Afebrile Mild leukocytosis to 11, improved Lymphopenia 08/11 BCx p UA neg Acute pancreatitis Lipase >2000 Elevated LFTs to 590 / 513, improving Acute hep panel p 08/11 CT A/P: * Peripancreatic inflammatory changes suggesting acute pa ncreatitis. No evidence to suggest pancreatic necrosis at this time. No peripancreatic fluid collection/pseudocyst. * Wall thickening and inflammatory changes about the second portion of the duodenum, likely secondary to pancreatic inflammation. * Some mildly prominent small bowel loops which may represent a mild reactive ileus. No evidence of small bowel obstruction. * Cholelithiasis. * Some patchy densities noted in the dependent portions of the lungs which may represent atelectatic changes. Subtle infiltrates not excluded. 08/11 Abd US: * Cholelithiasis. Negative sonographic Olson's sign. * No biliary ductal dilatation. * Increased hepatic echogenicity most commonly related to hepatic steatosis. Additional hepatocellular diseases to be excluded clinically. * Pancreas obscured by overlying bowel gas. 08/11 Abd MRI: Peripancreatic phlegmon, also described on recent CT scan, indicative of acute pancreatitis. Cholelithiasis. Negative for biliary ductal dilatation or evidence of choledocholithiasis. No gallbladder wall thickening. Fatty liver, also previously described Utox neg Cr 0.7 Plan: Cont empiric vanco/Zosyn #2 for now No indication for steroids nor remdesivir for COVID+ given satting well on RA, and LFTs too high for RDV This institution does not have access to convalescent plasma and as pt satting well on RA not indicated HIV screen CXR F/u acute hep panel Trend WBC, LFTs, lipase F/u BCx, if neg will likely stop abx soon Monitor CBC/CMP Monitor temp curve, hemodynamics Monitor resp status D/w RN Thank you for this consult. [facility] will continue to follow. Cari Tellez M.D. Aug 12, 2020 09:50
--- NOTE | 2020-08-12 10:10 | Cardiac Electrophysiology PN ---
Subjective Subjective [id number] Objective Last 24 Hour Vital Signs Date Time Temp Pulse Resp B/P (MAP) Pulse Ox O2 Delivery O2 Flow Rate FiO2 08/12/20 04:00 98.2 89 20 154/90 (111) 96 08/12/20 00:00 98.7 78 20 139/89 (106) 97 08/11/20 21:00 Room Air 08/11/20 20:00 99.4 86 16 126/78 (94) 99 08/11/20 18:39 100.2 08/11/20 17:39 179/102 08/11/20 17:33 100.2 107 20 179/102 (127) 95 08/11/20 16:07 Room Air 08/11/20 15:10 98.8 98 18 141/84 99 Room Air 08/11/20 14:00 98.4 103 18 151/85 96 Room Air 08/11/20 11:14 102 18 145/89 98 08/11/20 11:14 99.0 08/11/20 11:08 102 18 Room Air 08/11/20 11:07 99.0 102 18 145/89 98 Room Air 08/11/20 10:37 85 18 150/90 98 Intake and Output 08/11/20 08/12/20 19:00 07:00 Intake Total 100 ml 737.5 ml Output Total 500 ml Balance 100 ml 237.5 ml Intake IV Total 100 ml 737.5 ml Output Urine Total 500 ml # Voids 2 3 # Bowel Movements 1 1 Laboratory Tests Test 08/11/20 10:17 08/12/20 05:55 08/12/20 05:58 White Blood Count 11.3 K/UL (4.8-10.8) H 8.0 K/UL (4.8-10.8) Red Blood Count 5.90 M/UL (4.70-6.10) 5.05 M/UL (4.70-6.10) Hemoglobin 15.6 G/DL (14.2-18.0) 13.8 G/DL (14.2-18.0) L Hematocrit 48.0 % (42.0-52.0) 41.4 % (42.0-52.0) L Mean Corpuscular Volume 81 FL (80-99) 82 FL (80-99) Mean Corpuscular Hemoglobin 26.5 PG (27.0-31.0) L 27.3 PG (27.0-31.0) Mean Corpuscular Hemoglobin Concent 32.5 G/DL (32.0-36.0) 33.3 G/DL (32.0-36.0) Red Cell Distribution Width 13.3 % (11.6-14.8) 13.8 % (11.6-14.8) Platelet Count 149 K/UL (150-450) L 131 K/UL (150-450) L Mean Platelet Volume 13.0 FL (6.5-10.1) H 11.7 FL (6.5-10.1) H Neutrophils (%) (Auto) 78.6 % (45.0-75.0) H 74.4 % (45.0-75.0) Lymphocytes (%) (Auto) 13.9 % (20.0-45.0) L 18.5 % (20.0-45.0) L Monocytes (%) (Auto) 6.4 % (1.0-10.0) 5.6 % (1.0-10.0) Eosinophils (%) (Auto) 0.3 % (0.0-3.0) 0.4 % (0.0-3.0) Basophils (%) (Auto) 0.7 % (0.0-2.0) 1.1 % (0.0-2.0) Urine Color Yellow Urine Appearance Clear Urine pH 5 (4.5-8.0) Urine Specific [place] 1.015 (1.005-1.035) Urine Protein 1+ (NEGATIVE) H Urine Glucose (UA) 1+ (NEGATIVE) H Urine Ketones Negative (NEGATIVE) Urine Blood 1+ (NEGATIVE) H Urine Nitrite Negative (NEGATIVE) Urine Bilirubin 1+ (NEGATIVE) H Urine Ictotest Positive (NEGATIVE) Urine Urobilinogen 4 MG/DL (0.0-1.0) H Urine Leukocyte Esterase Negative (NEGATIVE) Urine RBC 0-2 /HPF (0 - 0) H Urine WBC 0-2 /HPF (0 - 0) Urine Squamous Epithelial Cells Occasional /LPF Urine Bacteria Occasional /HPF (NONE) Sodium Level 138 MMOL/L (136-145) 139 MMOL/L (136-145) Potassium Level 3.6 MMOL/L (3.5-5.1) 3.4 MMOL/L (3.5-5.1) L Chloride Level 104 MMOL/L (98-107) 106 MMOL/L (98-107) Carbon Dioxide Level 22 MMOL/L (21-32) 25 MMOL/L (21-32) Anion Gap 12 mmol/L (5-15) 9 mmol/L (5-15) Blood Urea Nitrogen 11 mg/dL (7-18) 10 mg/dL (7-18) Creatinine 0.9 MG/DL (0.55-1.30) 0.7 MG/DL (0.55-1.30) Estimat Glomerular Filtration Rate > 60 mL/min (>60) > 60 mL/min (>60) Glucose Level 157 MG/DL (74-106) H 126 MG/DL (74-106) H Calcium Level 8.7 MG/DL (8.5-10.1) 8.2 MG/DL (8.5-10.1) L Total Bilirubin 2.4 MG/DL (0.2-1.0) H 2.3 MG/DL (0.2-1.0) H Direct Bilirubin 1.9 MG/DL (0.0-0.3) H 0.8 MG/DL (0.0-0.3) H Aspartate Amino Transf (AST/SGOT) 590 U/L (15-37) H 230 U/L (15-37) H Alanine Aminotransferase (ALT/SGPT) 513 U/L (12-78) H 400 U/L (12-78) H Alkaline Phosphatase 151 U/L (46-116) H 137 U/L (46-116) H Troponin I 0.000 ng/mL (0.000-0.056) Total Protein 7.9 G/DL (6.4-8.2) 6.6 G/DL (6.4-8.2) Albumin 3.8 G/DL (3.4-5.0) 3.2 G/DL (3.4-5.0) L Globulin 4.1 g/dL 3.4 g/dL Albumin/Globulin Ratio 0.9 (1.0-2.7) L 0.9 (1.0-2.7) L Lipase > 2000 U/L (73-393) H > 2000 U/L (73-393) H Urine Opiates Screen Negative (NEGATIVE) Urine Barbiturates Screen Negative (NEGATIVE) Phencyclidine (PCP) Screen Negative (NEGATIVE) Urine Amphetamines Screen Negative (NEGATIVE) Urine Benzodiazepines Screen Negative (NEGATIVE) Urine Cocaine Screen Negative (NEGATIVE) Urine Marijuana (THC) Screen Negative (NEGATIVE) Serum Alcohol < 5 mg/dL HIV (1&2) Antibody Rapid Pending Prothrombin Time 11.9 SEC (9.30-11.50) H Prothromb Time International Ratio 1.1 (0.9-1.1) Activated Partial Thromboplast Time 26 SEC (23-33) Ammonia 24 umol/L (11-32) Amylase Level 405 U/L (25-115) H Hepatitis A IgM Antibody Pending Hepatitis B Surface Antigen Pending Hepatitis B Core IgM Antibody Pending Hepatitis C Antibody Pending Microbiology Date/Time Source Procedure Growth Status 08/11/20 20:16 Rectum Received 08/11/20 13:20 Nasopharynx SARS-CoV-2 RdRp Gene Assay - Final Complete Marlon Sarmiento MD Aug 12, 2020 10:10
--- NOTE | 2020-08-12 11:43 | General Progress Note ---
Subjective ROS Limited/Unobtainable: No Allergies: Coded Allergies: No Known Allergies (Unverified , 08/11/20) Objective Last 24 Hour Vital Signs Date Time Temp Pulse Resp B/P (MAP) Pulse Ox O2 Delivery O2 Flow Rate FiO2 08/12/20 04:00 98.2 89 20 154/90 (111) 96 08/12/20 00:00 98.7 78 20 139/89 (106) 97 08/11/20 21:00 Room Air 08/11/20 20:00 99.4 86 16 126/78 (94) 99 08/11/20 18:39 100.2 08/11/20 17:39 179/102 08/11/20 17:33 100.2 107 20 179/102 (127) 95 08/11/20 16:07 Room Air 08/11/20 15:10 98.8 98 18 141/84 99 Room Air 08/11/20 14:00 98.4 103 18 151/85 96 Room Air Intake and Output 08/11/20 08/12/20 19:00 07:00 Intake Total 100 ml 737.5 ml Output Total 500 ml Balance 100 ml 237.5 ml Intake IV Total 100 ml 737.5 ml Output Urine Total 500 ml # Voids 2 3 # Bowel Movements 1 1 Laboratory Tests 08/12/20 05:55: HIV (1&2) Antibody Rapid [Pending] 08/12/20 05:58: White Blood Count 8.0, Red Blood Count 5.05, Hemoglobin 13.8L, Hematocrit 41.4L, Mean Corpuscular Volume 82, Mean Corpuscular Hemoglobin 27.3, Mean Corpuscular Hemoglobin Concent 33.3, Red Cell Distribution Width 13.8, Platelet Count 131L, Mean Platelet Volume 11.7H, Neutrophils (%) (Auto) 74.4, Lymphocytes (%) (Auto) 18.5L, Monocytes (%) (Auto) 5.6, Eosinophils (%) (Auto) 0.4, Basophils (%) (Auto) 1.1, Prothrombin Time 11.9H, Prothromb Time International Ratio 1.1, Activated Partial Thromboplast Time 26, Sodium Level 139, Potassium Level 3.4L, Chloride Level 106, Carbon Dioxide Level 25, Anion Gap 9, Blood Urea Nitrogen 10, Creatinine 0.7, Estimat Glomerular Filtration Rate > 60, Glucose Level 126H, Calcium Level 8.2L, Total Bilirubin 2.3H, Direct Bilirubin 0.8H, Aspartate Amino Transf (AST/SGOT) 230H, Alanine Aminotransferase (ALT/SGPT) 400H, Alkaline Phosphatase 137H, Ammonia 24, Total Protein 6.6, Albumin 3.2L, Globulin 3.4, Albumin/Globulin Ratio 0.9L, Amylase Level 405H, Lipase > 2000H, Hepatitis A IgM Antibody [Pending], Hepatitis B Surface Antigen [Pending], Hepatitis B Core IgM Antibody [Pending], Hepatitis C Antibody [Pending] Height (Feet): 5 Height (Inches): 1.00 Weight (Pounds): 150 General Appearance: no apparent distress EENT: normal ENT inspection Neck: supple Cardiovascular: normal rate Respiratory/Chest: decreased breath sounds Abdomen: normal bowel sounds, non tender, soft Extremities: non-tender Assessment/Plan Problem List: (1) Cholelithiasis ICD Codes: K80.20 - Calculus of gallbladder without cholecystitis without obstruction SNOMED: 652647347, 291929797 (2) Pancreatitis ICD Codes: K85.90 - Acute pancreatitis without necrosis or infection, unspecified SNOMED: 56227894, 405365646 (3) Transaminitis ICD Codes: R74.01 - Elevation of levels of liver transaminase levels SNOMED: 921127506, 528894163 (4) Elevated bilirubin ICD Codes: R17 - Unspecified jaundice SNOMED: 01098963 Assessment/Plan: us and CT reviewed MRCP>>> reviewed no need for ercp ivf pain control hepatitis panel repeat labs surg consult Thierno Dai MD Aug 12, 2020 11:43
[2020-08-12] MEDS: Morphine Sulfate 2mg/ml Inj(IV/IM USE ONLY) IVP PRN (11:44)
[2020-08-12 12:00] VITALS: BP 123/61
--- NOTE | 2020-08-12 13:22 | Diagnostic Imaging Report ---
Procedure: XRAY Chest 1v Reason for study: Shortness of breath. Comparison films: None. FINDINGS: A single one view chest is obtained. There is some central venous congestion. Linear atelectasis noted right mid and lower lung zones. There is mild cardiomegaly. CP angles are sharp. The bony thorax appear unremarkable. IMPRESSION: Mild central venous congestion. Right lung streaky atelectasis.
--- NOTE | 2020-08-12 14:19 | NUR ---
CASE MANAGEMENT:INITIAL REVIEW 60 YR OLD MALE BIBA FROM A YARSANISM CC;ABDOMINAL PAIN SI;PANCREATITIS. COVID POSITIVE. CHOLELITHIASIS. ELEVATED LFT's. 100.2 107 20 179/102 95% ON RA WBC+ 11.3 GLU+ 157 T-BILI+ 2.4 D-BILI+ 1.9 AST+ 590 ALT+ 513 ALP+ 151 LIPASE+ >2000 PT+ 11.9 UA+ PROTEIN, GLUCOSE, BLOOD, BILIRUBIN, UROBILINOGEN , RBC URINE TOX SCREEN ~ NEGATIVE COVID RAPID ~ POSITIVE ABD/PELVIS CT ~ * Peripancreatic inflammatory changes suggesting acute pancreatitis. Correlation with pancreatic enzymes recommended. No evidence to suggest pancreatic necrosis at this time. No peripancreatic fluid collection/pseudocyst. * Wall thickening and inflammatory changes about the second portion of the duodenum, likely secondary to pancreatic inflammation. ABD US ~ Cholelithiasis. Negative sonographic Olson's sign. Increased hepatic echogenicity most commonly related to hepatic steatosis. ABD MRI ~ Peripancreatic phlegmon, also described on recent CT scan, indicative of acute pancreatitis. IS;ZOFRAN IV MYLANTA PO BENTYL PO LIDOCAINE PO MORPHINE SULFATE IV IVF NS BOLUS ADMITTED TO MED SURG MED SURG STATUS DCP;PATIENT REPORTS HOMELESSNESS
--- NOTE | 2020-08-12 15:29 | History and Physical Report ---
DATE OF ADMISSION: 08/11/2020 DATE AND TIME SEEN: 08/12/2020 at 1 p.m. CONSULTANTS: 1. Juancarlos Jean MD. 2. Thierno Dai MD. 3. Marlon Sarmiento MD. 4. Chilango Fatima MD. CHIEF COMPLAINT: Abdominal pain, pancreatitis, gallstone, hypertension, fever. BRIEF HISTORY: This is a 60-year-old male, who complained abdominal pain x2 days getting worse, came to [place] last night, diagnosed with pancreatitis, gallstone, hypertension and fever, admitted to medical floor. Currently, calm in bed. No complaint. No chest pain. No shortness of breath. Slight nausea. No vomiting or diarrhea. PAST MEDICAL HISTORY: Includes cholelithiasis. PAST SURGICAL HISTORY: Unknown. ALLERGIES: Denies. MEDICATIONS: Include lisinopril, pantoprazole, , Zosyn, heparin, clonidine, lorazepam, morphine. SOCIAL HISTORY: No smoking. No alcohol. No intravenous drug abuse. FAMILY HISTORY: Noncontributory. OBJECTIVE: GENERAL: Calm in bed, oriented x3, in no distress. VITAL SIGNS: Temperature is 98 degrees, pulse 89, respirations 20, blood pressure 154/90. CARDIOVASCULAR: No murmur. LUNGS: Distant and clear. ABDOMEN: Bowel sounds positive. Slightly tender. No guarding. No rigidity. No rebound. EXTREMITIES: No cyanosis, no clubbing, or edema. NEUROLOGIC: The patient moves all extremities, slightly weak. LABORATORY AND DIAGNOSTIC DATA: Labs at this time show hemoglobin and hematocrit 13/41, platelets 131,000. BMP shows potassium 3.4, glucose 126. Calcium 8.2. Total bilirubin is 2.3. Direct bilirubin 0.8. AST 230, ALT 400, alkaline phosphatase 187. Albumin 3.2. Amylase 405, lipase greater than 2000. INR is 1.1. Urine tox is negative. Urinalysis, 1+ bilirubin, 1+ glucose, 1+ protein. ASSESSMENT: 1. Pancreatitis. 2. Abdominal pain. 3. Gallstone. 4. Malnutrition. 5. Hypertension. 6. Elevated LFTs. 7. Fever. PLAN: 1. Pain control. 2. NPO. 3. IV fluids. 4. Blood pressure control. 5. GI and Surgery followup. 6. PT and dietary evaluation. 7. CBC and BMP in the morning. Jasson Cui D.O. DR: SOTERO JOB#: [id number] CC:
[2020-08-12 16:00] VITALS: BP 129/89
--- NOTE | 2020-08-12 18:14 | Surgery Progress Note ---
Surgery Progress Note Subjective Symptoms: improved, pain absent, tolerating diet, voiding well, passing flatus Additional Comments pain resolved no n/v/f/c comfortable mrcp noted Objective Last 24 Hour Vital Signs Date Time Temp Pulse Resp B/P (MAP) Pulse Ox O2 Delivery O2 Flow Rate FiO2 08/12/20 16:00 99.0 85 20 129/89 (102) 96 08/12/20 12:14 98.2 08/12/20 12:13 98.4 08/12/20 12:00 97.2 68 20 123/61 (81) 98 08/12/20 09:00 Room Air 08/12/20 08:00 99.1 94 20 144/93 (110) 96 08/12/20 04:00 98.2 89 20 154/90 (111) 96 08/12/20 00:00 98.7 78 20 139/89 (106) 97 08/11/20 21:00 Room Air 08/11/20 20:00 99.4 86 16 126/78 (94) 99 08/11/20 18:39 100.2 I&O Intake and Output 08/11/20 08/12/20 19:00 07:00 Intake Total 100 ml 737.5 ml Output Total 500 ml Balance 100 ml 237.5 ml Intake IV Total 100 ml 737.5 ml Output Urine Total 500 ml # Voids 2 3 # Bowel Movements 1 1 Cardiovascular: RSR Respiratory: clear Abdomen: soft, flat, non-tender, present bowel sounds, non-distended Extremities: no edema, no tenderness, no cyanosis Laboratory Tests Test 08/12/20 05:55 08/12/20 05:58 HIV (1&2) Antibody Rapid Pending White Blood Count 8.0 K/UL (4.8-10.8) Red Blood Count 5.05 M/UL (4.70-6.10) Hemoglobin 13.8 G/DL (14.2-18.0) L Hematocrit 41.4 % (42.0-52.0) L Mean Corpuscular Volume 82 FL (80-99) Mean Corpuscular Hemoglobin 27.3 PG (27.0-31.0) Mean Corpuscular Hemoglobin Concent 33.3 G/DL (32.0-36.0) Red Cell Distribution Width 13.8 % (11.6-14.8) Platelet Count 131 K/UL (150-450) L Mean Platelet Volume 11.7 FL (6.5-10.1) H Neutrophils (%) (Auto) 74.4 % (45.0-75.0) Lymphocytes (%) (Auto) 18.5 % (20.0-45.0) L Monocytes (%) (Auto) 5.6 % (1.0-10.0) Eosinophils (%) (Auto) 0.4 % (0.0-3.0) Basophils (%) (Auto) 1.1 % (0.0-2.0) Prothrombin Time 11.9 SEC (9.30-11.50) H Prothromb Time International Ratio 1.1 (0.9-1.1) Activated Partial Thromboplast Time 26 SEC (23-33) Sodium Level 139 MMOL/L (136-145) Potassium Level 3.4 MMOL/L (3.5-5.1) L Chloride Level 106 MMOL/L (98-107) Carbon Dioxide Level 25 MMOL/L (21-32) Anion Gap 9 mmol/L (5-15) Blood Urea Nitrogen 10 mg/dL (7-18) Creatinine 0.7 MG/DL (0.55-1.30) Estimat Glomerular Filtration Rate > 60 mL/min (>60) Glucose Level 126 MG/DL (74-106) H Calcium Level 8.2 MG/DL (8.5-10.1) L Total Bilirubin 2.3 MG/DL (0.2-1.0) H Direct Bilirubin 0.8 MG/DL (0.0-0.3) H Aspartate Amino Transf (AST/SGOT) 230 U/L (15-37) H Alanine Aminotransferase (ALT/SGPT) 400 U/L (12-78) H Alkaline Phosphatase 137 U/L (46-116) H Ammonia 24 umol/L (11-32) Total Protein 6.6 G/DL (6.4-8.2) Albumin 3.2 G/DL (3.4-5.0) L Globulin 3.4 g/dL Albumin/Globulin Ratio 0.9 (1.0-2.7) L Amylase Level 405 U/L (25-115) H Lipase > 2000 U/L (73-393) H Hepatitis A IgM Antibody Pending Hepatitis B Surface Antigen Pending Hepatitis B Core IgM Antibody Pending Hepatitis C Antibody Pending Plan Problems: (1) Cholelithiasis (2) Pancreatitis Assessment & Plan: 60-year-old male with likely gallstone pancreatitis. Afebrile hemodynamic stable leukocytosis elevated LFTs elevated bilirubin elevated lipase. CT reviewed pancreatitis identified. Ultrasound noted cholelithiasis no gallbladder wall thickening no Olson's no acute cholecystitis. CBD not dilated. Potential passage of stone. Admit for IV fluids n.p.o. bowel rest. Will trend LFTs. May need MRCP versus ERCP we will discuss with GI. N.p.o. for now IV fluids meds reviewed orders placed okay for diet pain resolved trend labs abx There is some image degradation due to motion artifact. Gallstones are seen within the gallbladder. The bile ducts are normal in caliber, and no filling defects are demonstrated. There is no gallbladder wall thickening nor pericholecystic fluid. Considerable edema is seen surrounding the pancreas, in the mesenteric root, and tracking along the anterior retroperitoneum. No discrete organized fluid col lection is demonstrated. The pancreas is somewhat prominent. The pancreatic duct is nondilated. No definite focal pancreatic abnormality. Hepatic signal decreased on the fat-suppressed images suggests hepatic steatosis, also described on prior CT scan. No focal liver lesion demonstrated. The spleen, adrenals, kidneys are unremarkable. The bladder appears unremarkable Impression: Peripancreatic phlegmon, also described on recent CT scan, indicative of acute pancreatitis. Cholelithiasis. Negative for biliary ductal dilatation or evidence of choledocholithiasis. No gallbladder wall thickening Fatty liver, also previously described Some patchy opacities noted in the dependent portions of the lungs. No dense consolidation. No pleural effusion or pneumothorax. Heart size within normal limits. No pericardial effusion. Hepatic contour is smooth. Cholelithiasis is seen. No gallbladder wall thickening or appreciable pericholecystic inflammatory changes. No biliary ductal dilatation. Hepatic veins and portal veins appear patent. Spleen and adrenal glands unremarkable. There is inflammatory stranding about the pancreas concerning for acute pancreatitis. Pancreatic enhancement appears uniform. No peripancreatic fluid collection. Inflammatory stranding is also noted around the second and third portions of the duodenum. The kidneys enhance symmetrically. There is no urinary tract stone or hydronephrosis. Bladder is unremarkable. Prostate is not significantly enlarged. There is no free intraperitoneal air. There is no evidence of bowel obstruction. Appendix is not definitively visualized however there is no findings to seen to suggest acute appendicitis. Some mildly prominent small bowel loops are noted which may be related to reactive ileus. There is a small hiatal hernia. The abdominal aorta is normal in caliber. Small retroperitoneal lymph nodes are seen, possibly reactive in etiology. Some calcifications are noted in the subcarinal region which may represent partially calcified lymph nodes. There are degenerative changes in the spine. No acute fracture. No subcutis fluid collection or abscess. IMPRESSION: * Peripancreatic inflammatory changes suggesting acute pancreatitis. Correlation with pancreatic enzymes recommended. No evidence to suggest pancreatic necrosis at this time. No peripancreatic fluid collection/pseudocyst. * Wall thickening and inflammatory changes about the second portion of the duodenum, likely secondary to pancreatic inflammation. * Some mildly prominent small bowel loops which may represent a mild reactive ileus. No evidence of small bowel obstruction. * Cholelithiasis. * Some patchy densities noted in the dependent portions of the lungs which may represent atelectatic changes. Subtle infiltrates not excluded. Correlation with clinical findings recommended. * Small hiatal hernia (3) Transaminitis (4) Elevated bilirubin Juancarlos Jean Aug 12, 2020 18:14
--- NOTE | 2020-08-12 19:24 | NUR ---
NURSE HAND-OFF: Important Events on Shift: Patient's [id number], provided pain medication; systolic blood [id number] Patient Status: In no apparent distress. Diet: NPO except ice/meds. Pending Orders: am labs. Pending Results/Labs:am labs, lipase, amylase, troponin. Timed vanco trough at 0730 08/13/20. Pending MD notification:N/A Latest Vital Signs: Temperature 99.0 , Pulse 85 , B/P 129 /89 , Respiratory Rate 20 , O2 SAT 96 , Room Air, O2 Flow Rate . Vital Sign Comment: N/A Latest Boothe Fall Score: 20 Fall Risk: Low Risk Safety Measures: Call light Within Reach, Bed Alarm Zone 1, Side Rails Side Rails x2, Bed position Low and Locked. Fall Precautions: Patient Fall Education Report given to Diaz Noble RN.
--- NOTE | 2020-08-12 19:30 | NUR ---
NURSE NOTES: Patient in bed, alert and oriented x4, on room air, no complaints at this time. IV access on the left hang 20 running NS+KCL20@100ml/hr. Call light in reach. Bed in lowest and lock engaged. Will continue to monitor.
[2020-08-12 20:00] VITALS: BP 148/89
[2020-08-12] MEDS: Lisinopril 10mg tab ORAL SCH (21:08)
[2020-08-13] VITALS: BP 153/77
[2020-08-13] MEDS: NS w/KCl 20mEq 1000ml 1,000 ML IV SCH ×3 (02:02→17:31)
[2020-08-13] MEDS: Morphine Sulfate 2mg/ml Inj(IV/IM USE ONLY) IVP PRN ×2 (03:22→20:54)
[2020-08-13 04:00] VITALS: BP 159/83
[2020-08-13] MEDS: Piperacillin/Tazobactam 3.375 GM in NS 110 ML IVPB SCH ×3 (05:08→21:01)
--- NOTE | 2020-08-13 06:56 | NUR ---
NURSE HAND-OFF: Important Events on Shift: Patient Status: Diet: NPO Pending Orders: Pending Results/Labs: Pending MD notification: Latest Vital Signs: Temperature 96.8 , Pulse 96 , B/P 159 /83 , Respiratory Rate 22 , O2 SAT 96 , Room Air, O2 Flow Rate . Vital Sign Comment: Latest Boothe Fall Score: 20 Fall Risk: Low Risk Safety Measures: Call light Within Reach, Bed Alarm Zone 1, Side Rails Side Rails x2, Bed position Low and Locked. Fall Precautions: Patient Fall Education Report given to Ms. Shankar RN..
[2020-08-13 07:39] LABS: BASOPHILS % (AUTO) 0.9 % (0.0-2.0); EOSINOPHILS % (AUTO) 0.4 % (0.0-3.0); HEMATOCRIT 41.2 % (42.0-52.0); HEMOGLOBIN 13.6 G/DL (14.2-18.0); LYMPHOCYTES % (AUTO) 15.6 % (20.0-45.0); MEAN CORPUSCULAR VOLUME 82 FL (80-99); MONOCYTES % (AUTO) 7.9 % (1.0-10.0); NEUTROPHILS % (AUTO) 75.2 % (45.0-75.0); PLATELET COUNT 126 K/UL (150-450); RED BLOOD COUNT 5.03 M/UL (4.70-6.10); RED CELL DISTRIBUTION WIDTH 13.7 % (11.6-14.8); WHITE BLOOD COUNT 11.3 K/UL (4.8-10.8)
--- NOTE | 2020-08-13 07:45 | NUR ---
NURSE NOTES: RN received report from Angle and patient in bed. Patient AAOX4, no s/s of respiratory distress on RA, c/o slight abdominal pain. IV patent and dry, intact and asymptomatic. Bed in lowest position and locked. Call light within reach. Will continue to monitor.
[2020-08-13 08:00] VITALS: BP 157/87
[2020-08-13] MEDS ORDERED: Vancomycin 750mg/NS 275ml IVPB SCH ×2 (08:00)
[2020-08-13] MEDS: Heparin 5000 units/ml inj SUBQ SCH ×2 (09:00→20:39)
--- NOTE | 2020-08-13 09:00 | Consultation ---
DATE OF CONSULTATION: 08/12/2020 CARDIOLOGY CONSULTATION CONSULTING PHYSICIAN: Marlon Sarmiento MD REFERRING PHYSICIAN: Jasson Cui DO REASON FOR CONSULTATION: Tachycardia and epigastric pain. HISTORY OF PRESENT ILLNESS: The patient is a 60-year-old homeless gentleman with history of hypertension who presented to the emergency room with abdominal pain of two days duration, which is worse in the epigastric area. He feels that the abdomen is distended. The patient has no history of alcohol or drug use but has been sleeping on the streets. The patient had normal bowel movement yesterday. In the emergency room, blood pressure was 150/90 with pulse rate of 85. The patient was admitted for pancreatitis, cholelithiasis. His COVID test, however, came back positive and currently is on COVID isolation. REVIEW OF SYSTEMS: Negative other than what was mentioned in the history of present illness. PAST MEDICAL HISTORY: As mentioned above. FAMILY HISTORY: Noncontributory. SOCIAL HISTORY: He is homeless, lives on the street. There is no history of drug use. PHYSICAL EXAMINATION: VITAL SIGNS: Blood pressure was as high as 179/102, currently 154/90. Pulse is 89, respirations 18, temperature max was 100.2. HEAD AND NECK: Showed no JVD. LUNGS: Coarse rhonchi. CARDIOVASCULAR: Regular S1 and S2 with no gallop or murmur. ABDOMEN: Nontender. EXTREMITIES: No pitting edema. LABORATORY DATA: Labs show white count of 8, hemoglobin 13.9, hematocrit 41.4, platelet count of 131. Sodium is 139, potassium 3.4, BUN of 10, creatinine 0.7, and glucose of 126. First troponin is negative. Urine toxicology screen is negative. ASSESSMENT AND PLAN: 1. Hypertension. Blood pressure was in the 170s. I will start the patient on lisinopril 10 mg daily. I will add p.r.n. clonidine to his medical regimen instead of 02:04____ . 2. Acute pancreatitis with lipase of more than 2000, amylase 405 as well as high AST and ALT of 590 and 513, as well as elevated total bilirubin of 2.4 as well as direct bilirubin of 1.9. The patient is on antibiotic and is followed by Dr. Dai from [facility]. 3. COVID positive pneumonia. Followup with Dr. Tellez, currently on room air and saturating well. 4. Lymphopenia. Thank you very much for allowing me to participate in the care of this patient. Please do not hesitate to contact for any questions regarding my evaluation. Sincerely, Marlon Sarmiento M.D. DR: Good JOB#: [id number] CC:
[2020-08-13 09:01] LABS: ALANINE AMINOTRANSFERASE 246 U/L (12-78); ALBUMIN 3.2 G/DL (3.4-5.0); ALKALINE PHOSPHATASE 129 U/L (46-116); AMYLASE 93 U/L (25-115); ANION GAP 13 mmol/L (5-15); ASPARTATE AMINO TRANSFERASE 91 U/L (15-37); BILIRUBIN,TOTAL 2.3 MG/DL (0.2-1.0); BLOOD UREA NITROGEN 10 mg/dL (7-18); CALCIUM 7.9 MG/DL (8.5-10.1); CARBON DIOXIDE 21 MMOL/L (21-32); CHLORIDE 104 MMOL/L (98-107); CREATININE 0.7 MG/DL (0.55-1.30); POTASSIUM 3.6 MMOL/L (3.5-5.1); SODIUM 138 MMOL/L (136-145)
[2020-08-13] MEDS: Pantoprazole Inj IV SCH (09:14)
[2020-08-13] MEDS: Docusate 100mg cap ORAL SCH ×2 (09:14→20:38)
[2020-08-13] MEDS: Lisinopril 10mg tab ORAL SCH ×2 (09:14→20:38)
--- NOTE | 2020-08-13 09:16 | NUR ---
NURSE NOTES: RN held heparin because the plt count was 126. RN notified Dr. Morales about the low platelet level and waiting for parameters. Will continue to monitor.
--- NOTE | 2020-08-13 09:27 | Infectious Diseases Prog Note ---
Assessment/Plan 60yo M with: COVID positive Satting well on RA Afebrile Mild leukocytosis to 11, improved Lymphopenia 08/11 BCx NTD UA neg 08/12 CXR: Mild central venous congestion. Right lung streaky atelectasis. Acute pancreatitis Lipase >2000 Elevated LFTs to 590 / 513, improving Acute hep panel p 08/11 CT A/P: * Peripancreatic inflammatory changes suggesting acute pancreatitis. No evidence to suggest pancreatic necrosis at this time. No peripancreatic fluid collection/pseudocyst. * Wall thickening and inflammatory changes about the second portion of the duodenum, likely secondary to pancreatic inflammation. * Some mildly prominent small bowel loops which may represent a mild reactive ileus. No evidence of small bowel obstruction. * Cholelithiasis. * Some patchy densities noted in the dependent portions of the lungs which may represent atelectatic changes. Subtle infiltrates not excluded. 08/11 Abd US: * Cholelithiasis. Negative sonographic Olson's sign. * No biliary ductal dilatation. * Increased hepatic echogenicity most commonly related to hepatic steatosis. Additional hepatocellular diseases to be excluded clinically. * Pancreas obscured by overlying bowel gas. 08/11 Abd MRI: Peripancreatic phlegmon, also described on recent CT scan, indicative of acute pancreatitis. Cholelithiasis. Negative for biliary ductal dilatation or evidence of choledocholithiasis. No gallbladder wall thickening. Fatty liver, also previously described Utox neg Cr 0.7 Plan: Stop vanco #2 given neg BCx Cont empiric Zosyn #3 for now No indication for steroids nor remdesivir for COVID+ given satting well on RA, and LFTs too high for RDV This institution does not have access to convalescent plasma and as pt satting well on RA not indicated F/u HIV screen F/u acute hep panel Trend WBC, LFTs, lipase F/u BCx, if neg will likely stop abx soon Monitor CBC/CMP Monitor temp curve, hemodynamics Monitor resp status D/w RN Thank you for this consult. [facility] will continue to follow. Subjective Allergies: Coded Allergies: No Known Allergies (Unverified , 08/11/20) Tmax 101.8 NAD on RA WBC 11 Ongoing abd pain, no breathing issues Objective Last 24 Hour Vital Signs Date Time Temp Pulse Resp B/P (MAP) Pulse Ox O2 Delivery O2 Flow Rate FiO2 08/13/20 09:14 157/87 08/13/20 08:00 99.2 88 20 157/87 (110) 97 08/13/20 04:00 96.8 96 22 159/83 (108) 96 08/13/20 00:00 98.4 83 24 153/77 (102) 96 08/12/20 21:39 98.4 08/12/20 21:08 148/89 08/12/20 21:00 Room Air 08/12/20 20:00 101.8 111 24 148/89 (108) 94 08/12/20 16:00 99.0 85 20 129/89 (102) 96 08/12/20 12:14 98.2 08/12/20 12:13 98.4 08/12/20 12:00 97.2 68 20 123/61 (81) 98 Height (Feet): 5 Height (Inches): 1.00 Weight (Pounds): 150 Cardiovascular: normal peripheral pulses Gen: NAD HEENT: NCAT Pulm: BL chest rise Abd: Non-distended Ext: No c/c/e Skin: No visible rashes Neuro: Awake Microbiology Date/Time Source Procedure Growth Status 08/11/20 20:16 Rectum VRE Culture - Final NO VANCOMYCIN RESISTANT ENTEROCOCCUS ... Complete 08/11/20 13:20 Nasopharynx SARS-CoV-2 RdRp Gene Assay - Final Complete 08/11/20 12:20 Blood Blood Culture - Preliminary NO GROWTH AFTER 24 HOURS Resulted 08/11/20 12:10 Blood Blood Culture - Preliminary NO GROWTH AFTER 24 HOURS Resulted Laboratory Tests Test 08/12/20 10:17 08/13/20 07:30 Miscellaneous Test Pending White Blood Count 11.3 K/UL (4.8-10.8) H Red Blood Count 5.03 M/UL (4.70-6.10) Hemoglobin 13.6 G/DL (14.2-18.0) L Hematocrit 41.2 % (42.0-52.0) L Mean Corpuscular Volume 82 FL (80-99) Mean Corpuscular Hemoglobin 27.0 PG (27.0-31.0) Mean Corpuscular Hemoglobin Concent 33.0 G/DL (32.0-36.0) Red Cell Distribution Width 13.7 % (11.6-14.8) Platelet Count 126 K/UL (150-450) L Mean Platelet Volume 11.3 FL (6.5-10.1) H Neutrophils (%) (Auto) 75.2 % (45.0-75.0) H Lymphocytes (%) (Auto) 15.6 % (20.0-45.0) L Monocytes (%) (Auto) 7.9 % (1.0-10.0) Eosinophils (%) (Auto) 0.4 % (0.0-3.0) Basophils (%) (Auto) 0.9 % (0.0-2.0) Sodium Level 138 MMOL/L (136-145) Potassium Level 3.6 MMOL/L (3.5-5.1) Chloride Level 104 MMOL/L (98-107) Carbon Dioxide Level 21 MMOL/L (21-32) Anion Gap 13 mmol/L (5-15) Blood Urea Nitrogen 10 mg/dL (7-18) Creatinine 0.7 MG/DL (0.55-1.30) Estimat Glomerular Filtration Rate > 60 mL/min (>60) Glucose Level 119 MG/DL (74-106) H Calcium Level 7.9 MG/DL (8.5-10.1) L Total Bilirubin 2.3 MG/DL (0.2-1.0) H Direct Bilirubin Pending Aspartate Amino Transf (AST/SGOT) 91 U/L (15-37) H Alanine Aminotransferase (ALT/SGPT) 246 U/L (12-78) H Alkaline Phosphatase 129 U/L (46-116) H Troponin I 0.000 ng/mL (0.000-0.056) Total Protein 6.3 G/DL (6.4-8.2) L Albumin 3.2 G/DL (3.4-5.0) L Globulin 3.1 g/dL Albumin/Globulin Ratio 1.0 (1.0-2.7) Amylase Level 93 U/L (25-115) Lipase 333 U/L (73-393) Vancomycin Level Trough 1.9 ug/mL (5.0-12.0) L Current Medications Medications (Trade) Dose Ordered Sig/Chayito Route PRN Reason Start Time Stop Time Status Last Admin Dose Admin Acetaminophen (Tylenol) 650 mg Q4H PRN ORAL Temp >100.5 08/11/20 13:15 09/10/20 13:14 08/12/20 21:09 Al Hydroxide/Mg Hydroxide (Mylanta II) 30 ml Q6H PRN ORAL dyspepsia 08/11/20 13:15 09/10/20 13:14 Clonidine HCl (Catapres tab) 0.2 mg Q2H PRN ORAL For High Blood Pressure 08/11/20 17:30 11/09/20 17:29 08/11/20 17:39 Dextrose (Dextrose 50%) 25 ml Q30M PRN IV Hypoglycemia 08/11/20 13:15 11/09/20 13:14 Dextrose (Dextrose 50%) 50 ml Q30M PRN IV Hypoglycemia 08/11/20 13:15 11/09/20 13:14 Diphenhydramine HCl (Benadryl) 25 mg Q6H PRN ORAL Itching/Pruritis 08/11/20 13:15 09/10/20 13:14 Docusate Sodium (Colace) 100 mg EVERY 12 HOURS ORAL 08/11/20 21:00 09/10/20 20:59 08/13/20 09:14 Heparin Sodium (Porcine) (Heparin 5000 units/ml) 5,000 units EVERY 12 HOURS SUBQ 08/11/20 21:00 09/25/20 20:59 08/12/20 08:48 Iohexol (OMNIPAQUE-300 100ml) 100 ml NOW PRN INJ Radiology Procedure 08/11/20 10:30 08/13/20 10:29 Lisinopril (ZestriL) 10 mg EVERY 12 HOURS ORAL 08/12/20 21:00 09/11/20 20:59 08/13/20 09:14 Lorazepam (Ativan) 1 mg Q4H PRN ORAL For Anxiety 08/11/20 13:15 08/18/20 13:14 Morphine Sulfate (Morphine Sulfate) 2 mg Q2H PRN IVP Moderate Pain (Pain Scale 4-6) 08/11/20 13:15 08/18/20 13:14 08/13/20 03:22 Ondansetron HCl (Zofran) 4 mg Q6H PRN IVP Nausea & Vomiting 08/11/20 13:15 09/10/20 13:14 Pantoprazole (Protonix) 40 mg DAILY IV 08/12/20 09:00 2/20/21 08:59 08/13/20 09:14 Piperacillin Sod/ Tazobactam Sod 3.375 gm/Sodium Chloride 110 ml @ 27.5 mls/hr EVERY 8 HOURS IVPB 08/11/20 22:00 08/16/20 21:59 08/13/20 05:08 Potassium Chloride/Sodium Chloride 1,000 ml @ 100 mls/hr Q10H IV 08/11/20 15:00 09/10/20 14:59 08/13/20 09:14 Temazepam (Restoril) 15 mg HSPRN PRN ORAL Insomnia 08/11/20 13:15 08/18/20 13:14 Vancomycin HCl (Vanco pharmacy to dose) 1 ea DAILY PRN MISC Per rx protocol 08/11/20 18:30 09/10/20 18:29 Vancomycin HCl 750 mg/Sodium Chloride 275 ml @ 183.333 mls/hr Q8HR@0000,0800,1600 IVPB 08/13/20 08:00 08/18/20 07:59 08/13/20 09:16 Cari Tellez M.D. Aug 13, 2020 09:27
--- NOTE | 2020-08-13 09:56 | General Progress Note ---
Subjective Constitutional: Reports: weakness Allergies: Coded Allergies: No Known Allergies (Unverified , 08/11/20) All Systems: reviewed and negative except above Subjective calm in bed Objective Last 24 Hour Vital Signs Date Time Temp Pulse Resp B/P (MAP) Pulse Ox O2 Delivery O2 Flow Rate FiO2 08/13/20 09:14 157/87 08/13/20 08:00 99.2 88 20 157/87 (110) 97 08/13/20 04:00 96.8 96 22 159/83 (108) 96 08/13/20 00:00 98.4 83 24 153/77 (102) 96 08/12/20 21:39 98.4 08/12/20 21:08 148/89 08/12/20 21:00 Room Air 08/12/20 20:00 101.8 111 24 148/89 (108) 94 08/12/20 16:00 99.0 85 20 129/89 (102) 96 08/12/20 12:14 98.2 08/12/20 12:13 98.4 08/12/20 12:00 97.2 68 20 123/61 (81) 98 Intake and Output 08/12/20 08/13/20 19:00 07:00 Intake Total 1502.5 ml 885.000 ml Output Total 300 ml 400 ml Balance 1202.5 ml 485.000 ml Intake IV Total 1502.5 ml 885.000 ml Output Urine Total 300 ml 400 ml # Voids 5 Laboratory Tests 08/12/20 10:17: Miscellaneous Test [Pending] 08/13/20 07:30: White Blood Count 11.3H, Red Blood Count 5.03, Hemoglobin 13.6L, Hematocrit 41.2L, Mean Corpuscular Volume 82, Mean Corpuscular Hemoglobin 27.0, Mean Corpuscular Hemoglobin Concent 33.0, Red Cell Distribution Width 13.7, Platelet Count 126L, Mean Platelet Volume 11.3H, Neutrophils (%) (Auto) 75.2H, Lymphocytes (%) (Auto) 15.6L, Monocytes (%) (Auto) 7.9, Eosinophils (%) (Auto) 0.4, Basophils (%) (Auto) 0.9, Sodium Level 138, Potassium Level 3.6, Chloride Level 104, Carbon Dioxide Level 21, Anion Gap 13, Blood Urea Nitrogen 10, Creatinine 0.7, Estimat Glomerular Filtration Rate > 60, Glucose Level 119H, Calcium Level 7.9L, Total Bilirubin 2.3H, Direct Bilirubin [Pending], Aspartate Amino Transf (AST/SGOT) 91H, Alanine Aminotransferase (ALT/SGPT) 246H, Alkaline Phosphatase 129H, Troponin I 0.000, Total Protein 6.3L, Albumin 3.2L, Globulin 3.1, Albumin/Globulin Ratio 1.0, Amylase Level 93, Lipase 333, Vancomycin Level Trough 1.9L Height (Feet): 5 Height (Inches): 1.00 Weight (Pounds): 150 General Appearance: lethargic EENT: normal ENT inspection Neck: normal alignment Cardiovascular: normal peripheral pulses, normal rate, regular rhythm Respiratory/Chest: chest wall non-tender, lungs clear, normal breath sounds Abdomen: normal bowel sounds, non tender, soft Extremities: normal inspection Edema: no edema noted Arm (L), no edema noted Arm (R), no edema noted Leg (L), no edema noted Leg (R), no edema noted Pedal (L), no edema noted Pedal (R), no edema noted Generalized Neurologic: motor weakness Skin: normal pigmentation, warm/dry Assessment/Plan Problem List: (1) Malnutrition ICD Codes: E46 - Unspecified protein-calorie malnutrition SNOMED: 07934153 (2) HTN (hypertension) ICD Codes: I10 - Essential (primary) hypertension SNOMED: 80071356 (3) Fever ICD Codes: R50.9 - Fever, unspecified SNOMED: 403580588 (4) Cholelithiasis ICD Codes: K80.20 - Calculus of gallbladder without cholecystitis without obstruction SNOMED: 382779206, 787277924 (5) Transaminitis ICD Codes: R74.01 - Elevation of levels of liver transaminase levels SNOMED: 455380841, 340101271 (6) Pancreatitis ICD Codes: K85.90 - Acute pancreatitis without necrosis or infection, unspecified SNOMED: 20589099, 827798512 Status: unchanged Assessment/Plan: gi sx f/u abx cbc bmp nia CuiJassongayle GalvanCady Aug 13, 2020 09:56
[2020-08-13 09:58] LABS: BILIRUBIN,DIRECT 0.8 MG/DL (0.0-0.3)
--- NOTE | 2020-08-13 10:47 | Surgery Progress Note ---
Surgery Progress Note Subjective Additional Comments lipase improved lft's remain elevated no n/v no pain but tender on exam abd mild Objective Last 24 Hour Vital Signs Date Time Temp Pulse Resp B/P (MAP) Pulse Ox O2 Delivery O2 Flow Rate FiO2 08/13/20 09:14 157/87 08/13/20 08:00 99.2 88 20 157/87 (110) 97 08/13/20 04:00 96.8 96 22 159/83 (108) 96 08/13/20 00:00 98.4 83 24 153/77 (102) 96 08/12/20 21:39 98.4 08/12/20 21:08 148/89 08/12/20 21:00 Room Air 08/12/20 20:00 101.8 111 24 148/89 (108) 94 08/12/20 16:00 99.0 85 20 129/89 (102) 96 08/12/20 12:14 98.2 08/12/20 12:13 98.4 08/12/20 12:00 97.2 68 20 123/61 (81) 98 I&O Intake and Output 08/12/20 08/13/20 19:00 07:00 Intake Total 1502.5 ml 885.000 ml Output Total 300 ml 400 ml Balance 1202.5 ml 485.000 ml Intake IV Total 1502.5 ml 885.000 ml Output Urine Total 300 ml 400 ml # Voids 5 Cardiovascular: RSR Respiratory: clear Abdomen: soft, tenderness, present bowel sounds, non-distended Extremities: no edema, no tenderness, no cyanosis Laboratory Tests Test 08/13/20 07:30 White Blood Count 11.3 K/UL (4.8-10.8) H Red Blood Count 5.03 M/UL (4.70-6.10) Hemoglobin 13.6 G/DL (14.2-18.0) L Hematocrit 41.2 % (42.0-52.0) L Mean Corpuscular Volume 82 FL (80-99) Mean Corpuscular Hemoglobin 27.0 PG (27.0-31.0) Mean Corpuscular Hemoglobin Concent 33.0 G/DL (32.0-36.0) Red Cell Distribution Width 13.7 % (11.6-14.8) Platelet Count 126 K/UL (150-450) L Mean Platelet Volume 11.3 FL (6.5-10.1) H Neutrophils (%) (Auto) 75.2 % (45.0-75.0) H Lymphocytes (%) (Auto) 15.6 % (20.0-45.0) L Monocytes (%) (Auto) 7.9 % (1.0-10.0) Eosinophils (%) (Auto) 0.4 % (0.0-3.0) Basophils (%) (Auto) 0.9 % (0.0-2.0) Sodium Level 138 MMOL/L (136-145) Potassium Level 3.6 MMOL/L (3.5-5.1) Chloride Level 104 MMOL/L (98-107) Carbon Dioxide Level 21 MMOL/L (21-32) Anion Gap 13 mmol/L (5-15) Blood Urea Nitrogen 10 mg/dL (7-18) Creatinine 0.7 MG/DL (0.55-1.30) Estimat Glomerular Filtration Rate > 60 mL/min (>60) Glucose Level 119 MG/DL (74-106) H Calcium Level 7.9 MG/DL (8.5-10.1) L Total Bilirubin 2.3 MG/DL (0.2-1.0) H Direct Bilirubin 0.8 MG/DL (0.0-0.3) H Aspartate Amino Transf (AST/SGOT) 91 U/L (15-37) H Alanine Aminotransferase (ALT/SGPT) 246 U/L (12-78) H Alkaline Phosphatase 129 U/L (46-116) H Troponin I 0.000 ng/mL (0.000-0.056) Total Protein 6.3 G/DL (6.4-8.2) L Albumin 3.2 G/DL (3.4-5.0) L Globulin 3.1 g/dL Albumin/Globulin Ratio 1.0 (1.0-2.7) Amylase Level 93 U/L (25-115) Lipase 333 U/L (73-393) Vancomycin Level Trough 1.9 ug/mL (5.0-12.0) L Plan Problems: (1) Cholelithiasis (2) Pancreatitis Assessment & Plan: 60-year-old male with likely gallstone pancreatitis. Afebrile hemodynamic stable leukocytosis elevated LFTs elevated bilirubin elevated lipase. CT reviewed pancreatitis identified. Ultrasound noted cholelithiasis no gallbladder wall thickening no Olson's no acute cholecystitis. CBD not dilated. Potential passage of stone. Admit for IV fluids n.p.o. bowel rest. Will trend LFTs. May need MRCP versus ERCP we will discuss with GI. N.p.o. for now IV fluids meds reviewed orders placed okay for diet pain resolved trend labs abx There is some image degradation due to motion artifact. Gallstones are seen within the gallbladder. The bile ducts are normal in caliber, and no filling defects are demonstrated. There is no gallbladder wall thickening nor pericholecystic fluid. Considerable edema is seen surrounding the pancreas, in the mesenteric root, and tracking along the anterior retroperitoneum. No discrete organized fluid collection is demonstrated. The pancreas is somewhat prominent. The pancreatic duct is nondilated. No definite focal pancreatic abnormality. Hepatic signal decreased on the fat-suppressed images suggests hepatic steatosis, also described on prior CT scan. No focal liver lesion demonstrated. The spleen, adrenals, kidneys are unremarkable. The bladder appears unremarkable Impression: Peripancreatic phlegmon, also described on recent CT scan, indicative of acute pancreatitis. Cholelithiasis. Negative for biliary ductal dilatation or evidence of choledocholithiasis. No gallbladder wall thickening Fatty liver, also previously described Some patchy opacities noted in the dependent portions of the lungs. No dense consolidation. No pleural effusion or pneumothorax. Heart size within normal limits. No pericardial effusion. Hepatic contour is smooth. Cholelithiasis is seen. No gallbladder wall thickening or appreciable pericholecystic inflammatory changes. No biliary ductal dilatation. Hepatic veins and portal veins appear patent. Spleen and adrenal glands unremarkable. There is inflammatory stranding about the pancreas concerning for acute pancreatitis. Pancreatic enhancement appears uniform. No peripancreatic fluid collection. Inflammatory stranding is also noted around the second and third portions of the duodenum. The kidneys enhance symmetrically. There is no urinary tract stone or hydronephrosis. Bladder is unremarkable. Prostate is not significantly enlarged. There is no free intraperitoneal air. There is no evidence of bowel obstruction. Appendix is not definitively visualized however there is no findings to seen to suggest acute appendicitis. Some mildly prominent small bowel loops are noted which may be related to reactive ileus. There is a small hiatal hernia. The abdominal aorta is normal in caliber. Small retroperitoneal lymph nodes are seen, possibly reactive in etiology. Some calcifications are noted in the subcarinal region which may represent partially calcified lymph nodes. There are degenerative changes in the spine. No acute fracture. No subcutis fluid collection or abscess. IMPRESSION: * Peripancreatic inflammatory changes suggesting acute pancreatitis. Correlation with pancreatic enzymes recommended. No evidence to suggest pancreatic necrosis at this time. No peripancreatic fluid collection/pseudocyst. * Wall thickening and inflammatory changes about the second portion of the duodenum, likely secondary to pancreatic inflammation. * Some mildly prominent small bowel loops which may represent a mild reactive ileus. No evidence of small bowel obstruction. * Cholelithiasis. * Some patchy densities noted in the dependent portions of the lungs which may represent atelectatic changes. Subtle infiltrates not excluded. Correlation with clinical findings recommended. * Small hiatal hernia (3) Transaminitis (4) Elevated bilirubin Juancarlos Jean Aug 13, 2020 10:47
[2020-08-13 12:00] VITALS: BP 162/84
--- NOTE | 2020-08-13 12:24 | General Progress Note ---
Subjective ROS Limited/Unobtainable: No Allergies: Coded Allergies: No Known Allergies (Unverified , 08/11/20) Objective Last 24 Hour Vital Signs Date Time Temp Pulse Resp B/P (MAP) Pulse Ox O2 Delivery O2 Flow Rate FiO2 08/13/20 09:14 157/87 08/13/20 08:00 99.2 88 20 157/87 (110) 97 08/13/20 04:00 96.8 96 22 159/83 (108) 96 08/13/20 00:00 98.4 83 24 153/77 (102) 96 08/12/20 21:39 98.4 08/12/20 21:08 148/89 08/12/20 21:00 Room Air 08/12/20 20:00 101.8 111 24 148/89 (108) 94 08/12/20 16:00 99.0 85 20 129/89 (102) 96 Intake and Output 08/12/20 08/13/20 19:00 07:00 Intake Total 1502.5 ml 885.000 ml Output Total 300 ml 400 ml Balance 1202.5 ml 485.000 ml Intake IV Total 1502.5 ml 885.000 ml Output Urine Total 300 ml 400 ml # Voids 5 Laboratory Tests 08/13/20 07:30: White Blood Count 11.3H, Red Blood Count 5.03, Hemoglobin 13.6L, Hematocrit 41.2L, Mean Corpuscular Volume 82, Mean Corpuscular Hemoglobin 27.0, Mean Corpuscular Hemoglobin Concent 33.0, Red Cell Distribution Width 13.7, Platelet Count 126L, Mean Platelet Volume 11.3H, Neutrophils (%) (Auto) 75.2H, Lymphocytes (%) (Auto) 15.6L, Monocytes (%) (Auto) 7.9, Eosinophils (%) (Auto) 0.4, Basophils (%) (Auto) 0.9, Sodium Level 138, Potassium Level 3.6, Chloride Level 104, Carbon Dioxide Level 21, Anion Gap 13, Blood Urea Nitrogen 10, Creatinine 0.7, Estimat Glomerular Filtration Rate > 60, Glucose Level 119H, Calcium Level 7.9L, Total Bilirubin 2.3H, Direct Bilirubin 0.8H, Aspartate Amino Transf (AST/SGOT) 91H, Alanine Aminotransferase (ALT/SGPT) 246H, Alkaline Phosph atase 129H, Troponin I 0.000, Total Protein 6.3L, Albumin 3.2L, Globulin 3.1, Albumin/Globulin Ratio 1.0, Amylase Level 93, Lipase 333, Vancomycin Level Trough 1.9L Height (Feet): 5 Height (Inches): 1.00 Weight (Pounds): 150 General Appearance: no apparent distress EENT: normal ENT inspection Neck: supple Cardiovascular: normal rate Respiratory/Chest: decreased breath sounds Abdomen: normal bowel sounds, non tender, soft Extremities: non-tender Assessment/Plan Problem List: (1) Cholelithiasis ICD Codes: K80.20 - Calculus of gallbladder without cholecystitis without obstruction SNOMED: 031396692, 413313439 (2) Pancreatitis ICD Codes: K85.90 - Acute pancreatitis without necrosis or infection, unspecified SNOMED: 46380934, 644087749 (3) Transaminitis ICD Codes: R74.01 - Elevation of levels of liver transaminase levels SNOMED: 902084401, 894175007 (4) Elevated bilirubin ICD Codes: R17 - Unspecified jaundice SNOMED: 95107983 Status: unchanged Assessment/Plan: us and CT reviewed MRCP>>> reviewed no need for ercp ivf pain control hepatitis panel>>>neg repeat labs surg consult appreciated advance diet to full liquid Thierno Dai MD Aug 13, 2020 12:24
--- NOTE | 2020-08-13 13:52 | NUR ---
PARENTING SKILLS INSTRUCTOR NOTE SW attempted to speak w/ pt through [facility] #[id number]. PT provided limited information and declined to participate full assessment. PT reported he has been homeless for 14 days after leaving a home in [place], [place]. PT reported his mother resides in [place]. SW asked for the emergency contact information but pt declined to provide one. Pt's and child reside in [place]. PT is unemployed and receives no income. SW attempted to obtain more information and also attempted to discuss prelim dc plan but pt refused. SW will F/U when DC date is determined. Addendum: 08/13/20 at 1558 by CARLOS IBARRA SW met w/ pt again to clarify information. Jina administrative asst assisted w/ [employer] as pt did not prefer utilizing a telephone senior engineering associate. SW reports his ex- and child resides in [place], [place] and his brother Nilesh Louis resides in [place], [place]. Pt was living in his truck, however pt lost the truck after partying w/ his friends. Pt reports he drinks a lot and he considers going to [employer] meetings in near future. PT has been sleeping on streets on [facility] [address] [facility]. PT reports he does not have a place to quarantine upon DC. PT cannot stay w/ his family. PT agreed to be referred to [facility] quarantine housing. DC date to be determined to refer pt to quarantine housing.
--- NOTE | 2020-08-13 14:35 | NUR ---
Air Cargo SpecialistWireless Technician SI: Acute Pancreatitis, Elevated LFT, COVID-19 T-99.2, HR 88, RR 20, BP 157/87, O2 sat 97% WBC 11.2, amylase 93, lipase 333, Bilirubin 2.3, AST 91, ALT 246, Alk Phos 129 IS: Zosyn IV q 8 h Heparin sq q 12 h NS w/KCL @100cc/hr Vancomycin IV q 8 h Med/Surg Status
--- NOTE | 2020-08-13 14:42 | Cardiac Electrophysiology PN ---
Assessment/Plan Assessment/Plan 1. Hypertension. Blood pressure was in the 170s. Still high despite adding lisinopril 10 mg bid. Add Norvasc 5 bid. Also on p.r.n. clonidine 2. Acute pancreatitis with lipase of more than 2000, amylase 405 as well as high AST and ALT of 590 and 513, as well as elevated total bilirubin of 2.4 as well as direct bilirubin of 1.9. The patient is on antibiotic and is followed by Dr. Dai from [facility]. 3. COVID positive pneumonia. Followup with Dr. Tellez, currently on room air and saturating well. 4. Lymphopenia. Subjective Subjective Alert in NAD. No CP or SOB.NPO except Ice chips.On iv Abx Objective Last 24 Hour Vital Signs Date Time Temp Pulse Resp B/P (MAP) Pulse Ox O2 Delivery O2 Flow Rate FiO2 08/13/20 09:14 157/87 08/13/20 08:00 99.2 88 20 157/87 (110) 97 08/13/20 04:00 96.8 96 22 159/83 (108) 96 08/13/20 00:00 98.4 83 24 153/77 (102) 96 08/12/20 21:39 98.4 08/12/20 21:08 148/89 08/12/20 21:00 Room Air 08/12/20 20:00 101.8 111 24 148/89 (108) 94 08/12/20 16:00 99.0 85 20 129/89 (102) 96 Intake and Output 08/12/20 08/13/20 19:00 07:00 Intake Total 1502.5 ml 885.000 ml Output Total 300 ml 400 ml Balance 1202.5 ml 485.000 ml Intake IV Total 1502.5 ml 885.000 ml Output Urine Total 300 ml 400 ml # Voids 5 Laboratory Tests Test 08/13/20 07:30 White Blood Count 11.3 K/UL (4.8-10.8) H Red Blood Count 5.03 M/UL (4.70-6.10) Hemoglobin 13.6 G/DL (14.2-18.0) L Hematocrit 41.2 % (42.0-52.0) L Mean Corpuscular Volume 82 FL (80-99) Mean Corpuscular Hemoglobin 27.0 PG (27.0-31.0) Mean Corpuscular Hemoglobin Concent 33.0 G/DL (32.0-36.0) Red Cell Distribution Width 13.7 % (11.6-14.8) Platelet Count 126 K/UL (150-450) L Mean Platelet Volume 11.3 FL (6.5-10.1) H Neutrophils (%) (Auto) 75.2 % (45.0-75.0) H Lymphocytes (%) (Auto) 15.6 % (20.0-45.0) L Monocytes (%) (Auto) 7.9 % (1.0-10.0) Eosinophils (%) (Auto) 0.4 % (0.0-3.0) Basophils (%) (Auto) 0.9 % (0.0-2.0) Sodium Level 138 MMOL/L (136-145) Potassium Level 3.6 MMOL/L (3.5-5.1) Chloride Level 104 MMOL/L (98-107) Carbon Dioxide Level 21 MMOL/L (21-32) Anion Gap 13 mmol/L (5-15) Blood Urea Nitrogen 10 mg/dL (7-18) Creatinine 0.7 MG/DL (0.55-1.30) Estimat Glomerular Filtration Rate > 60 mL/min (>60) Glucose Level 119 MG/DL (74-106) H Calcium Level 7.9 MG/DL (8.5-10.1) L Total Bilirubin 2.3 MG/DL (0.2-1.0) H Direct Bilirubin 0.8 MG/DL (0.0-0.3) H Aspartate Amino Transf (AST/SGOT) 91 U/L (15-37) H Alanine Aminotransferase (ALT/SGPT) 246 U/L (12-78) H Alkaline Phosphatase 129 U/L (46-116) H Troponin I 0.000 ng/mL (0.000-0.056) Total Protein 6.3 G/DL (6.4-8.2) L Albumin 3.2 G/DL (3.4-5.0) L Globulin 3.1 g/dL Albumin/Globulin Ratio 1.0 (1.0-2.7) Amylase Level 93 U/L (25-115) Lipase 333 U/L (73-393) Vancomycin Level Trough 1.9 ug/mL (5.0-12.0) L Microbiology Date/Time Source Procedure Growth Status 08/11/20 20:16 Rectum VRE Culture - Final NO VANCOMYCIN RESISTANT ENTEROCOCCUS ... Complete 08/11/20 13:20 Nasopharynx SARS-CoV-2 RdRp Gene Assay - Final Complete 08/11/20 12:20 Blood Blood Culture - Preliminary NO GROWTH AFTER 24 HOURS Resulted 08/11/20 12:10 Blood Blood Culture - Preliminary NO GROWTH AFTER 24 HOURS Resulted Objective HEAD AND NECK: Showed no JVD. LUNGS: Coarse rhonchi. CARDIOVASCULAR: Regular S1 and S2 with no gallop or murmur. ABDOMEN: Nontender. EXTREMITIES: No pitting edema. Marlon Sarmiento MD Aug 13, 2020 14:42
[2020-08-13 16:00] VITALS: BP 167/91
--- NOTE | 2020-08-13 19:35 | NUR ---
NURSE HAND-OFF: Important Events on Shift:low platelet level. parameter for heparin is 100 Patient Status: stable Diet: full liquid diet Pending Orders: n/a Pending Results/Labs:n/a Pending MD notification:n/a Latest Vital Signs: Temperature 98.0 , Pulse 68 , B/P 167 /91 , Respiratory Rate 20 , O2 SAT 96 , Room Air, O2 Flow Rate . Vital Sign Comment: hypertension, MD aware Latest Boothe Fall Score: 20 Fall Risk: Low Risk Safety Measures: Call light Within Reach, Bed Alarm Zone 1, Side Rails Side Rails x2, Bed position Low and Locked. Fall Precautions: Patient Fall Education Report given to Ev.
--- NOTE | 2020-08-13 19:49 | NUR ---
NURSE NOTES: Patient asleep in bed, on room air, no sign of respiratory distress. IV access on the right arm. Call light in reach. Bed in lowest and lock engaged. Will continue plan of care.
[2020-08-13 20:00] VITALS: BP 165/98
[2020-08-14] VITALS: BP 163/93
[2020-08-14] MEDS: Morphine Sulfate 2mg/ml Inj(IV/IM USE ONLY) IVP PRN ×3 (00:23→21:15)
[2020-08-14 04:00] VITALS: BP 163/87
[2020-08-14] MEDS: NS w/KCl 20mEq 1000ml 1,000 ML IV SCH ×3 (04:17→23:00)
[2020-08-14] MEDS: Piperacillin/Tazobactam 3.375 GM in NS 110 ML IVPB SCH ×3 (05:23→21:14)
--- NOTE | 2020-08-14 06:59 | NUR ---
NURSE HAND-OFF: Important Events on Shift: Pain mgt, IV insertion Patient Status: Diet: Full liquid Pending Orders: Pending Results/Labs: Pending MD notification: Latest Vital Signs: Temperature 98.1 , Pulse 75 , B/P 163 /87 , Respiratory Rate 20 , O2 SAT 96 , Room Air, O2 Flow Rate . Vital Sign Comment: Latest Boothe Fall Score: 20 Fall Risk: Low Risk Safety Measures: Call light Within Reach, Bed Alarm Zone 1, Side Rails Side Rails x2, Bed position Low and Locked. Fall Precautions: Patient Fall Education Report given to Ms. Shankar RN.
[2020-08-14 07:59] LABS: BASOPHILS % (AUTO) 1.7 % (0.0-2.0); HEMATOCRIT 39.7 % (42.0-52.0); HEMOGLOBIN 13.4 G/DL (14.2-18.0); LYMPHOCYTES % (AUTO) 15.5 % (20.0-45.0); MEAN CORPUSCULAR VOLUME 81 FL (80-99); MONOCYTES % (AUTO) 8.4 % (1.0-10.0); NEUTROPHILS % (AUTO) 73.4 % (45.0-75.0); PLATELET COUNT 132 K/UL (150-450); RED BLOOD COUNT 4.88 M/UL (4.70-6.10); RED CELL DISTRIBUTION WIDTH 13.4 % (11.6-14.8)
[2020-08-14 08:00] VITALS: BP 158/88
--- NOTE | 2020-08-14 08:00 | NUR ---
NURSE NOTES: RN received the patient in bed, [id number]. No s/s of respiratory distress on RA or pain noted. Two IV access sites working well, asymptomatic, intact, dry. Bed in lowest position and locked. Call light within reach. Will continue to monitor.
[2020-08-14 08:30] LABS: ALANINE AMINOTRANSFERASE 165 U/L (12-78); ALBUMIN 2.9 G/DL (3.4-5.0); ALBUMIN/GLOBULIN RATIO 0.7 (1.0-2.7); ALKALINE PHOSPHATASE 121 U/L (46-116); ANION GAP 10 mmol/L (5-15); ASPARTATE AMINO TRANSFERASE 48 U/L (15-37); BILIRUBIN,TOTAL 1.7 MG/DL (0.2-1.0); BLOOD UREA NITROGEN 8 mg/dL (7-18); CALCIUM 8.2 MG/DL (8.5-10.1); CARBON DIOXIDE 23 MMOL/L (21-32); CHLORIDE 104 MMOL/L (98-107); CREATININE 0.6 MG/DL (0.55-1.30); POTASSIUM 3.6 MMOL/L (3.5-5.1); SODIUM 137 MMOL/L (136-145)
[2020-08-14 08:31] LABS: AMYLASE 65 U/L (25-115); BILIRUBIN,DIRECT 0.6 MG/DL (0.0-0.3)
--- NOTE | 2020-08-14 10:23 | General Progress Note ---
Subjective Constitutional: Reports: weakness Allergies: Coded Allergies: No Known Allergies (Unverified , 08/11/20) All Systems: reviewed and negative except above Subjective calm in bed Objective Last 24 Hour Vital Signs Date Time Temp Pulse Resp B/P (MAP) Pulse Ox O2 Delivery O2 Flow Rate FiO2 08/14/20 08:00 98.3 80 18 158/88 (111) 97 08/14/20 04:00 98.1 75 20 163/87 (112) 96 08/14/20 00:00 99.0 88 19 163/93 (116) 96 08/13/20 21:00 Room Air 08/13/20 20:38 165/98 08/13/20 20:00 99.7 84 18 165/98 (120) 95 08/13/20 16:00 98.0 68 20 167/91 (116) 96 08/13/20 12:00 98.1 97 20 162/84 (110) 94 Intake and Output 08/13/20 08/14/20 19:00 07:00 Intake Total 460 ml 1737.5 ml Output Total 700 ml 1000 ml Balance -240 ml 737.5 ml Intake Oral 360 ml 500 ml IV Total 100 ml 1237.5 ml Output Urine Total 700 ml 1000 ml # Voids 4 Laboratory Tests 08/14/20 06:40: White Blood Count 10.0, Red Blood Count 4.88, Hemoglobin 13.4L, Hematocrit 39.7L , Mean Corpuscular Volume 81, Mean Corpuscular Hemoglobin 27.4, Mean Corpuscular Hemoglobin Concent 33.6, Red Cell Distribution Width 13.4, Platelet Count 132L, Mean Platelet Volume 11.1H, Neutrophils (%) (Auto) 73.4, Lymphocytes (%) (Auto) 15.5L, Monocytes (%) (Auto) 8.4, Eosinophils (%) (Auto) 1.0, Basophils (%) (Auto) 1.7, Sodium Level 137, Potassium Level 3.6, Chloride Level 104, Carbon Dioxide Level 23, Anion Gap 10, Blood Urea Nitrogen 8, Creatinine 0.6, Estimat Glomerular Filtration Rate > 60, Glucose Level 119H, Calcium Level 8.2L, Total Bilirubin 1.7H, Direct Bilirubin 0.6H, Aspartate Amino Transf (AST/SGOT) 48H, Alanine Aminotransferase (ALT/SGPT) 165H, Alkaline Phosphatase 121H, Total Protein 6.8, Albumin 2.9L, Globulin 3.9, Albumin/Globulin Ratio 0.7L, Amylase Level 65, Lipase 476H Height (Feet): 5 Height (Inches): 1.00 Weight (Pounds): 150 General Appearance: lethargic EENT: normal ENT inspection Neck: normal alignment Cardiovascular: normal peripheral pulses, normal rate, regular rhythm Respiratory/Chest: chest wall non-tender, lungs clear, normal breath sounds Abdomen: normal bowel sounds, non tender, soft Extremities: normal inspection Edema: no edema noted Arm (L), no edema noted Arm (R), no edema noted Leg (L), no edema noted Leg (R), no edema noted Pedal (L), no edema noted Pedal (R), no edema noted Generalized Neurologic: motor weakness Skin: normal pigmentation, warm/dry Assessment/Plan Problem List: (1) HTN (hypertension) ICD Codes: I10 - Essential (primary) hypertension SNOMED: 71706083 (2) Fever ICD Codes: R50.9 - Fever, unspecified SNOMED: 734198451 (3) Cholelithiasis ICD Codes: K80.20 - Calculus of gallbladder without cholecystitis without obstruction SNOMED: 757779924, 729249210 (4) Transaminitis ICD Codes: R74.01 - Elevation of levels of liver transaminase levels SNOMED: 175468734, 662842964 (5) Pancreatitis ICD Codes: K85.90 - Acute pancreatitis without necrosis or infection, unspecified SNOMED: 04540889, 014330292 (6) Malnutrition ICD Codes: E46 - Unspecified protein-calorie malnutrition SNOMED: 89357690 (7) COVID-19 ICD Codes: U07.1 - COVID-19 SNOMED: 883157268 Status: unchanged Assessment/Plan: gi sx f/u abx cbc bmp Jasson Nolasco DO Aug 14, 2020 10:23
[2020-08-14] MEDS: Lisinopril 10mg tab ORAL SCH ×2 (10:37→21:17)
[2020-08-14] MEDS: Docusate 100mg cap ORAL SCH ×2 (10:38→21:17)
[2020-08-14] MEDS: Pantoprazole Inj IV SCH (10:38)
[2020-08-14] MEDS: Heparin 5000 units/ml inj SUBQ SCH ×2 (10:42→21:18)
--- NOTE | 2020-08-14 10:48 | Cardiac Electrophysiology PN ---
Assessment/Plan Assessment/Plan 1. Hypertension. Still high despite adding lisinopril 10 mg bid. Increase Norvasc to 5 po bid. Also on p.r.n. clonidine 2. Acute pancreatitis with lipase of more than 2000, amylase 405 as well as high AST and ALT of 590 and 513, as well as elevated total bilirubin of 2.4 as well as direct bilirubin of 1.9. The patient is on antibiotic and is followed by Dr. Dai from [facility].NPO except meds 3. COVID positive pneumonia. Followup with Dr. Tellez, currently on room air and saturating well. 4. Lymphopenia. Subjective Subjective Alert in NAD. No CP or SOB. On iv Abx. BP in 160s on RA Homeless. Placement pending Objective Last 24 Hour Vital Signs Date Time Temp Pulse Resp B/P (MAP) Pulse Ox O2 Delivery O2 Flow Rate FiO2 08/14/20 10:38 80 158/88 08/14/20 10:37 158/88 08/14/20 08:00 98.3 80 18 158/88 (111) 97 08/14/20 04:00 98.1 75 20 163/87 (112) 96 08/14/20 00:00 99.0 88 19 163/93 (116) 96 08/13/20 21:00 Room Air 08/13/20 20:38 165/98 08/13/20 20:00 99.7 84 18 165/98 (120) 95 08/13/20 16:00 98.0 68 20 167/91 (116) 96 08/13/20 12:00 98.1 97 20 162/84 (110) 94 Intake and Output 08/13/20 08/14/20 19:00 07:00 Intake Total 460 ml 1737.5 ml Output Total 700 ml 1000 ml Balance -240 ml 737.5 ml Intake Oral 360 ml 500 ml IV Total 100 ml 1237.5 ml Output Urine Total 700 ml 1000 ml # Voids 4 Laboratory Tests Test 08/14/20 06:40 White Blood Count 10.0 K/UL (4.8-10.8) Red Blood Count 4.88 M/UL (4.70-6.10) Hemoglobin 13.4 G/DL (14.2-18.0) L Hematocrit 39.7 % (42.0-52.0) L Mean Corpuscular Volume 81 FL (80-99) Mean Corpuscular Hemoglobin 27.4 PG (27.0-31.0) Mean Corpuscular Hemoglobin Concent 33.6 G/DL (32.0-36.0) Red Cell Distribution Width 13.4 % (11.6-14.8) Platelet Count 132 K/UL (150-450) L Mean Platelet Volume 11.1 FL (6.5-10.1) H Neutrophils (%) (Auto) 73.4 % (45.0-75.0) Lymphocytes (%) (Auto) 15.5 % (20.0-45.0) L Monocytes (%) (Auto) 8.4 % (1.0-10.0) Eosinophils (%) (Auto) 1.0 % (0.0-3.0) Basophils (%) (Auto) 1.7 % (0.0-2.0) Sodium Level 137 MMOL/L (136-145) Potassium Level 3.6 MMOL/L (3.5-5.1) Chloride Level 104 MMOL/L (98-107) Carbon Dioxide Level 23 MMOL/L (21-32) Anion Gap 10 mmol/L (5-15) Blood Urea Nitrogen 8 mg/dL (7-18) Creatinine 0.6 MG/DL (0.55-1.30) Estimat Glomerular Filtration Rate > 60 mL/min (>60) Glucose Level 119 MG/DL (74-106) H Calcium Level 8.2 MG/DL (8.5-10.1) L Total Bilirubin 1.7 MG/DL (0.2-1.0) H Direct Bilirubin 0.6 MG/DL (0.0-0.3) H Aspartate Amino Transf (AST/SGOT) 48 U/L (15-37) H Alanine Aminotransferase (ALT/SGPT) 165 U/L (12-78) H Alkaline Phosphatase 121 U/L (46-116) H Total Protein 6.8 G/DL (6.4-8.2) Albumin 2.9 G/DL (3.4-5.0) L Globulin 3.9 g/dL Albumin/Globulin Ratio 0.7 (1.0-2.7) L Amylase Level 65 U/L (25-115) Lipase 476 U/L (73-393) H Microbiology Date/Time Source Procedure Growth Status 08/11/20 20:16 Rectum - Final NO CARBAPENEM-RESISTANT ENTEROBACTERI... Complete 08/11/20 20:16 Rectum VRE Culture - Final NO VANCOMYCIN RESISTANT ENTEROCOCCUS ... Complete 08/11/20 20:16 Nasal Nares MRSA Culture - Final NO METHICILLIN RESISTANT STAPH AUREUS... Complete 08/11/20 13:20 Nasopharynx SARS-CoV-2 RdRp Gene Assay - Final Complete 08/11/20 12:20 Blood Blood Culture - Preliminary NO GROWTH AFTER 48 HOURS Resulted 08/11/20 12:10 Blood Blood Culture - Preliminary NO GROWTH AFTER 48 HOURS Resulted Objective HEAD AND NECK: Showed no JVD. LUNGS: Coarse rhonchi. CARDIOVASCULAR: Regular S1 and S2 with no gallop or murmur. ABDOMEN: Nontender. EXTREMITIES: No pitting edema. Marlon Sarmiento MD Aug 14, 2020 10:48
--- NOTE | 2020-08-14 11:55 | General Progress Note ---
Subjective ROS Limited/Unobtainable: Yes Allergies: Coded Allergies: No Known Allergies (Unverified , 08/11/20) Objective Last 24 Hour Vital Signs Date Time Temp Pulse Resp B/P (MAP) Pulse Ox O2 Delivery O2 Flow Rate FiO2 08/14/20 10:38 80 158/88 08/14/20 10:37 158/88 08/14/20 08:00 98.3 80 18 158/88 (111) 97 08/14/20 04:00 98.1 75 20 163/87 (112) 96 08/14/20 00:00 99.0 88 19 163/93 (116) 96 08/13/20 21:00 Room Air 08/13/20 20:38 165/98 08/13/20 20:00 99.7 84 18 165/98 (120) 95 08/13/20 16:00 98.0 68 20 167/91 (116) 96 08/13/20 12:00 98.1 97 20 162/84 (110) 94 Intake and Output 08/13/20 08/14/20 19:00 07:00 Intake Total 460 ml 1737.5 ml Output Total 700 ml 1000 ml Balance -240 ml 737.5 ml Intake Oral 360 ml 500 ml IV Total 100 ml 1237.5 ml Output Urine Total 700 ml 1000 ml # Voids 4 Laboratory Tests 08/14/20 06:40: White Blood Count 10.0, Red Blood Count 4.88, Hemoglobin 13.4L, Hematocrit 39.7L , Mean Corpuscular Volume 81, Mean Corpuscular Hemoglobin 27.4, Mean Corpuscular Hemoglobin Concent 33.6, Red Cell Distribution Width 13.4, Platelet Count 132L, Mean Platelet Volume 11.1H, Neutrophils (%) (Auto) 73.4, Lymphocytes (%) (Auto) 15.5L, Monocytes (%) (Auto) 8.4, Eosinophils (%) (Auto) 1.0, Basophils (%) (Auto) 1.7, Sodium Level 137, Potassium Level 3.6, Chloride Level 104, Carbon Dioxide Level 23, Anion Gap 10, Blood Urea Nitrogen 8, Creatinine 0.6, Estimat Glomerular Filtration Rate > 60, Glucose Level 119H, Calcium Level 8.2L, Total Bilirubin 1.7H, Direct Bilirubin 0.6H, Aspartate Amino Transf (AST/SGOT) 48H, Alanine Aminotransferase (ALT/SGPT) 165H, Alkaline Phosphatase 121H, Total Protein 6.8, Albumin 2.9L, Globulin 3.9, Albumin/Globulin Ratio 0.7L, Amylase Level 65, Lipase 476H Height (Feet): 5 Height (Inches): 1.00 Weight (Pounds): 150 General Appearance: no apparent distress EENT: normal ENT inspection Neck: supple Cardiovascular: normal rate Respiratory/Chest: decreased breath sounds Abdomen: normal bowel sounds, non tender, soft Extremities: non-tender Assessment/Plan Problem List: (1) Cholelithiasis ICD Codes: K80.20 - Calculus of gallbladder without cholecystitis without obst ruction SNOMED: 088728734, 278370041 (2) Pancreatitis ICD Codes: K85.90 - Acute pancreatitis without necrosis or infection, unspecified SNOMED: 21735257, 816816254 (3) Transaminitis ICD Codes: R74.01 - Elevation of levels of liver transaminase levels SNOMED: 353302214, 814227940 (4) Elevated bilirubin ICD Codes: R17 - Unspecified jaundice SNOMED: 69656316 Status: unchanged Assessment/Plan: us and CT reviewed MRCP>>> reviewed no need for ercp ivf pain control hepatitis panel>>>neg repeat labs surg consult appreciated advance diet to low fat Thierno Dai MD Aug 14, 2020 11:55
[2020-08-14 12:00] VITALS: BP 163/88
--- NOTE | 2020-08-14 13:34 | NUR ---
CASE MANAGEMENT:REVIEW 08/14/20 SI: PANCREATITIS. CHOLELITHIASIS 98.3 80 18 158/88 97% ON RA PLT-132 TBILI+1.7 DBILI+0.6 AST/ALT+48/165 LIPASE+476 IS: IV ZOSYN Q8HRS IVF+KCL@100/HR NORVASC PO Q12 LISINOPRIL PO Q12 IV PROTONIX QD IV MORPHINE Q2HRS PRN : MED/SURG STATUS 4 EAST DCP: FROM ??? PLAN: ADVANCE DIET
[2020-08-14 16:00] VITALS: BP 157/86
--- NOTE | 2020-08-14 17:06 | Surgery Progress Note ---
Surgery Progress Note Subjective Symptoms: improved, tolerating diet, pain decreased Objective Last 24 Hour Vital Signs Date Time Temp Pulse Resp B/P (MAP) Pulse Ox O2 Delivery O2 Flow Rate FiO2 08/14/20 12:00 97.3 74 18 163/88 (113) 98 08/14/20 10:38 80 158/88 08/14/20 10:37 158/88 08/14/20 08:00 98.3 80 18 158/88 (111) 97 08/14/20 04:00 98.1 75 20 163/87 (112) 96 08/14/20 00:00 99.0 88 19 163/93 (116) 96 08/13/20 21:00 Room Air 08/13/20 20:38 165/98 08/13/20 20:00 99.7 84 18 165/98 (120) 95 I&O Intake and Output 08/13/20 08/14/20 19:00 07:00 Intake Total 460 ml 1737.5 ml Output Total 700 ml 1000 ml Balance -240 ml 737.5 ml Intake Oral 360 ml 500 ml IV Total 100 ml 1237.5 ml Output Urine Total 700 ml 1000 ml # Voids 4 Cardiovascular: RSR Respiratory: clear Abdomen: soft, flat, tenderness, present bowel sounds Extremities: no edema, no tenderness, no cyanosis Laboratory Tests Test 08/14/20 06:40 White Blood Count 10.0 K/UL (4.8-10.8) Red Blood Count 4.88 M/UL (4.70-6.10) Hemoglobin 13.4 G/DL (14.2-18.0) L Hematocrit 39.7 % (42.0-52.0) L Mean Corpuscular Volume 81 FL (80-99) Mean Corpuscular Hemoglobin 27.4 PG (27.0-31.0) Mean Corpuscular Hemoglobin Concent 33.6 G/DL (32.0-36.0) Red Cell Distribution Width 13.4 % (11.6-14.8) Platelet Count 132 K/UL (150-450) L Mean Platelet Volume 11.1 FL (6.5-10.1) H Neutrophils (%) (Auto) 73.4 % (45.0-75.0) Lymphocytes (%) (Auto) 15.5 % (20.0-45.0) L Monocytes (%) (Auto) 8.4 % (1.0-10.0) Eosinophils (%) (Auto) 1.0 % (0.0-3.0) Basophils (%) (Auto) 1.7 % (0.0-2.0) Sodium Level 137 MMOL/L (136-145) Potassium Level 3.6 MMOL/L (3.5-5.1) Chloride Level 104 MMOL/L (98-107) Carbon Dioxide Level 23 MMOL/L (21-32) Anion Gap 10 mmol/L (5-15) Blood Urea Nitrogen 8 mg/dL (7-18) Creatinine 0.6 MG/DL (0.55-1.30) Estimat Glomerular Filtration Rate > 60 mL/min (>60) Glucose Level 119 MG/DL (74-106) H Calcium Level 8.2 MG/DL (8.5-10.1) L Total Bilirubin 1.7 MG/DL (0.2-1.0) H Direct Bilirubin 0.6 MG/DL (0.0-0.3) H Aspartate Amino Transf (AST/SGOT) 48 U/L (15-37) H Alanine Aminotransferase (ALT/SGPT) 165 U/L (12-78) H Alkaline Phosphatase 121 U/L (46-116) H Total Protein 6.8 G/DL (6.4-8.2) Albumin 2.9 G/DL (3.4-5.0) L Globulin 3.9 g/dL Albumin/Globulin Ratio 0.7 (1.0-2.7) L Amylase Level 65 U/L (25-115) Lipase 476 U/L (73-393) H Plan Problems: (1) Cholelithiasis (2) Pancreatitis Assessment & Plan: 60-year-old male with likely gallstone pancreatitis. Afebrile hemodynamic stable leukocytosis elevated LFTs elevated bilirubin elevated lipase. CT reviewed pancreatitis identified. Ultrasound noted cholelithiasis no gallbladder wall thickening no Olson's no acute cholecystitis. CBD not dilated. Potential passage of stone. Admit for IV fluids n.p.o. bowel rest. Will trend LFTs. May need MRCP versus ERCP we will discuss with GI. N.p.o. for now IV fluids meds reviewed orders placed okay for diet pain resolved trend labs abx There is some image degradation due to motion artifact. Gallstones are seen within the gallbladder. The bile ducts are normal in caliber, and no filling defects are demonstrated. There is no gallbladder wall thickening nor pericholecystic fluid. Considerable edema is seen surrounding the pancreas, in the mesenteric root, and tracking along the anterior retroperitoneum. No discrete organized fluid collection is demonstrated. The pancreas is somewhat prominent. The pancreatic duct is nondilated. No definite focal pancreatic abnormality. Hepatic signal decreased on the fat-suppressed images suggests hepatic steatosis, also described on prior CT scan. No focal liver lesion demonstrated. The spleen, adrenals, kidneys are unremarkable. The bladder appears unremarkable Impression: Peripancreatic phlegmon, also described on recent CT scan, indicative of acute pancreatitis. Cholelithiasis. Negative for biliary ductal dilatation or evidence of choledocholithiasis. No gallbladder wall thickening Fatty liver, also previously described Some patchy opacities noted in the dependent portions of the lungs. No dense consolidation. No pleural effusion or pneumothorax. Heart size within normal limits. No pericardial effusion. Hepatic contour is smooth. Cholelithiasis is seen. No gallbladder wall thickening or appreciable pericholecystic inflammatory changes. No biliary ductal dilatation. Hepatic veins and portal veins appear patent. Spleen and adrenal glands unremarkable. There is inflammatory stranding about the pancreas concerning for acute pancreatitis. Pancreatic enhancement appears uniform. No peripancreatic fluid collection. Inflammatory stranding is also noted around the second and third portions of the duodenum. The kidneys enhance symmetrically. There is no urinary tract stone or hydronephrosis. Bladder is unremarkable. Prostate is not significantly enlarged. There is no free intraperitoneal air. There is no evidence of bowel obstruction. Appendix is not definitively visualized however there is no findings to seen to suggest acute appendicitis. Some mildly prominent small bowel loops are noted which may be related to reactive ileus. There is a small hiatal hernia. The abdominal aorta is normal in caliber. Small retroperitoneal lymph nodes are seen, possibly reactive in etiology. Some calcifications are noted in the subcarinal region which may represent partially calcified lymph nodes. There are degenerative changes in the spine. No acute fracture. No subcutis fluid collection or abscess. IMPRESSION: * Peripancreatic inflammatory changes suggesting acute pancreatitis. Correlation with pancreatic enzymes recommended. No evidence to suggest pancreatic necrosis at this time. No peripancreatic fluid collection/pseudocyst. * Wall thickening and inflammatory changes about the second portion of the duod enum, likely secondary to pancreatic inflammation. * Some mildly prominent small bowel loops which may represent a mild reactive ileus. No evidence of small bowel obstruction. * Cholelithiasis. * Some patchy densities noted in the dependent portions of the lungs which may represent atelectatic changes. Subtle infiltrates not excluded. Correlation with clinical findings recommended. * Small hiatal hernia (3) Transaminitis (4) Elevated bilirubin Juancarlos Jean Aug 14, 2020 17:06
--- NOTE | 2020-08-14 19:16 | NUR ---
NURSE NOTES: RECEIVED PATIENT LYING IN BED, AWAKE, ALERT/ORIENTED X4, ABLE TO VERBALIZE SIMPLE NEEDS IN FAROESE, DENIES PAIN, NO SIGNS AND SYMPTOMS OF ACUTE CARDIO RESPIRATORY DISTRESS/SHORTNESS OF BREATH, DENIES CHEST PAIN, NOTED WITH TRACE EDEMA. IV INTACT TO RIGHT FOREARM, NO SIGNS OF INFILTRATION, TOLERATING FLUIDS, NO REDNESS/SWELLING NOTED. DENIES ABDOMINAL PAIN, NO N/V/D. SIDE RAILS UP X2 FOR MOBILITY, BED IN LOWEST POSITION FOR SAFETY, ENCOURAGED PATIENT TO UTILIZE CALL LIGHT FOR ASSISTANCE, VERBALIZED UNDERSTANDING, CONTINUE WITH CURRENT PLAN OF CARE. NAD.
--- NOTE | 2020-08-14 19:30 | NUR ---
NURSE HAND-OFF: Important Events on Shift:pain management Patient Status: stable Diet: low fat diet Pending Orders: n/a Pending Results/Labs:n/a Pending MD notification:n/a Latest Vital Signs: Temperature 97.3 , Pulse 96 , B/P 157 /86 , Respiratory Rate 18 , O2 SAT 98 , Room Air, O2 Flow Rate . Vital Sign Comment: hypertension Latest Boothe Fall Score: 20 Fall Risk: Low Risk Safety Measures: Call light Within Reach, Bed Alarm Zone 1, Side Rails Side Rails x2, Bed position Low and Locked. Fall Precautions: Patient Fall Education Report given to Gertrudis.
[2020-08-14 20:00] VITALS: BP 155/84
[2020-08-15] VITALS: BP 147/77
[2020-08-15] MEDS: Morphine Sulfate 2mg/ml Inj(IV/IM USE ONLY) IVP PRN ×3 (02:53→21:07)
[2020-08-15 04:00] VITALS: BP 129/74
[2020-08-15] MEDS: Piperacillin/Tazobactam 3.375 GM in NS 110 ML IVPB SCH ×3 (05:07→21:06)
--- NOTE | 2020-08-15 07:31 | NUR ---
NURSE HAND-OFF: Important Events on Shift:[UNEVENTFUL NIGHT, RESTED WELL, NAD.] Patient Status: [STABLE] Diet: [LOW FAT] Pending Orders: [AM LABS] Pending Results/Labs:[] Pending MD notification:[N/A] Latest Vital Signs: Temperature 98.0 , Pulse 79 , B/P 129 /74 , Respiratory Rate 16 , O2 SAT 96 , Room Air, O2 Flow Rate . Vital Sign Comment: [STABLE, AFEBRILE] Latest Boothe Fall Score: 20 Fall Risk: Low Risk Safety Measures: Call light Within Reach, Bed Alarm Zone 1, Side Rails Side Rails x2, Bed position Low and Locked. Fall Precautions: Patient Fall Education Report given to [STEVIE PRESTON].
--- NOTE | 2020-08-15 07:52 | NUR ---
NURSE NOTES: RN received report from Gertrudis, patient in bed [id number]. Patient shows no s/s of respiratory distress on RA, no s/s of pain. IV running on both sites on the right forearm, intact, dry, and asymptomatic. Bed in lowest position and locked, side rails up x2. Call light within reach. Will continue to monitor.
[2020-08-15 08:00] VITALS: BP 143/77
[2020-08-15 08:17] LABS: BASOPHILS % (AUTO) 1.3 % (0.0-2.0); EOSINOPHILS % (AUTO) 1.3 % (0.0-3.0); HEMATOCRIT 41.5 % (42.0-52.0); HEMOGLOBIN 13.8 G/DL (14.2-18.0); LYMPHOCYTES % (AUTO) 17.8 % (20.0-45.0); MEAN CORPUSCULAR VOLUME 82 FL (80-99); NEUTROPHILS % (AUTO) 70.5 % (45.0-75.0); PLATELET COUNT 151 K/UL (150-450); RED BLOOD COUNT 5.08 M/UL (4.70-6.10); RED CELL DISTRIBUTION WIDTH 13.7 % (11.6-14.8); WHITE BLOOD COUNT 9.4 K/UL (4.8-10.8)
[2020-08-15] MEDS: Docusate 100mg cap ORAL SCH ×2 (08:42→21:15)
[2020-08-15] MEDS: Lisinopril 10mg tab ORAL SCH ×2 (08:42→21:15)
[2020-08-15] MEDS: Pantoprazole Inj IV SCH (08:42)
[2020-08-15] MEDS: Heparin 5000 units/ml inj SUBQ SCH ×2 (08:43→21:18)
--- NOTE | 2020-08-15 08:57 | General Progress Note ---
Subjective Constitutional: Reports: weakness Allergies: Coded Allergies: No Known Allergies (Unverified , 08/11/20) All Systems: reviewed and negative except above Subjective calm in bed Objective Last 24 Hour Vital Signs Date Time Temp Pulse Resp B/P (MAP) Pulse Ox O2 Delivery O2 Flow Rate FiO2 08/15/20 08:42 75 143/77 08/15/20 08:42 143/77 08/15/20 08:00 98.2 75 18 143/77 (99) 96 08/15/20 04:00 98.0 79 16 129/74 (92) 96 08/15/20 03:23 97.3 08/15/20 00:00 98.2 86 17 147/77 (100) 97 08/14/20 21:45 97.3 08/14/20 21:32 Room Air 08/14/20 21:17 88 145/82 08/14/20 21:17 145/82 08/14/20 20:00 99.2 94 19 155/84 (107) 95 08/14/20 16:54 97.3 08/14/20 16:00 98.6 96 18 157/86 (109) 98 08/14/20 12:00 97.3 74 18 163/88 (113) 98 08/14/20 10:38 80 158/88 08/14/20 10:37 158/88 08/14/20 09:00 Room Air Intake and Output 08/14/20 08/15/20 19:00 07:00 Intake Total 580 ml 2097.5 ml Output Total 1100 ml Balance -520 ml 2097.5 ml Intake Oral 480 ml 760 ml IV Total 100 ml 1337.5 ml Output Urine Total 1100 ml # Voids 2 Laboratory Tests 08/15/20 06:38: White Blood Count 9.4, Red Blood Count 5.08, Hemoglobin 13.8L, Hematocrit 41.5L, Mean Corpuscular Volume 82, Mean Corpuscular Hemoglobin 27.1, Mean Corpuscular Hemoglobin Concent 33.2, Red Cell Distribution Width 13.7, Platelet Count 151, Mean Platelet Volume 10.6H, Neutrophils (%) (Auto) 70.5, Lymphocytes (%) (Auto) 17.8L, Monocytes (%) (Auto) 9.0, Eosinophils (%) (Auto) 1.3, Basophils (%) (Auto) 1.3, Sodium Level [Pending], Potassium Level [Pending], Chloride Level [Pending], Carbon Dioxide Level [Pending], Blood Urea Nitrogen [Pending], Creatinine [Pending], Estimat Glomerular Filtration Rate [Pending], Glucose Level [Pending], Calcium Level [Pending], Total Bilirubin [Pending], Aspartate A chidi Transf (AST/SGOT) [Pending], Alanine Aminotransferase (ALT/SGPT) [Pending], Alkaline Phosphatase [Pending], Total Protein [Pending], Albumin [Pending], Globulin [Pending] Height (Feet): 5 Height (Inches): 1.00 Weight (Pounds): 150 General Appearance: lethargic EENT: normal ENT inspection Neck: normal alignment Cardiovascular: normal peripheral pulses, normal rate, regular rhythm Respiratory/Chest: chest wall non-tender, lungs clear, normal breath sounds Abdomen: normal bowel sounds, non tender, soft Extremities: normal inspection Edema: no edema noted Arm (L), no edema noted Arm (R), no edema noted Leg (L), no edema noted Leg (R), no edema noted Pedal (L), no edema noted Pedal (R), no edema noted Generalized Neurologic: motor weakness Skin: normal pigmentation, warm/dry Assessment/Plan Problem List: (1) HTN (hypertension) ICD Codes: I10 - Essential (primary) hypertension SNOMED: 58026135 (2) Fever ICD Codes: R50.9 - Fever, unspecified SNOMED: 125574185 (3) Cholelithiasis ICD Codes: K80.20 - Calculus of gallbladder without cholecystitis without obstruction SNOMED: 327495358, 348648602 (4) Transaminitis ICD Codes: R74.01 - Elevation of levels of liver transaminase levels SNOMED: 237063732, 978233413 (5) Pancreatitis ICD Codes: K85.90 - Acute pancreatitis without necrosis or infection, unspecified SNOMED: 19070330, 616334861 (6) Malnutrition ICD Codes: E46 - Unspecified protein-calorie malnutrition SNOMED: 96417507 (7) COVID-19 ICD Codes: U07.1 - COVID-19 SNOMED: 845279592 Status: unchanged Assessment/Plan: gi sx f/u abx cbc bmp am Cui,Jasson Chi-Cady DO Aug 15, 2020 08:57
[2020-08-15 09:19] LABS: ALANINE AMINOTRANSFERASE 135 U/L (12-78); ALBUMIN 2.8 G/DL (3.4-5.0); ALBUMIN/GLOBULIN RATIO 0.7 (1.0-2.7); ALKALINE PHOSPHATASE 121 U/L (46-116); ANION GAP 11 mmol/L (5-15); ASPARTATE AMINO TRANSFERASE 43 U/L (15-37); BILIRUBIN,TOTAL 1.2 MG/DL (0.2-1.0); BLOOD UREA NITROGEN 10 mg/dL (7-18); CALCIUM 8.5 MG/DL (8.5-10.1); CARBON DIOXIDE 23 MMOL/L (21-32); CHLORIDE 102 MMOL/L (98-107); CREATININE 0.7 MG/DL (0.55-1.30); POTASSIUM 3.6 MMOL/L (3.5-5.1); SODIUM 136 MMOL/L (136-145)
[2020-08-15 09:20] LABS: BILIRUBIN,DIRECT 0.4 MG/DL (0.0-0.3)
[2020-08-15] MEDS: NS w/KCl 20mEq 1000ml 1,000 ML IV SCH ×2 (09:34→21:14)
--- NOTE | 2020-08-15 10:06 | Infectious Diseases Prog Note ---
Assessment/Plan 60yo M with: COVID positive Satting well on RA Afebrile Mild leukocytosis to 11, improved Lymphopenia 08/11 BCx NTD UA neg 08/12 CXR: Mild central venous congestion. Right lung streaky atelectasis. Acute pancreatitis Lipase >2000 Elevated LFTs to 590 / 513, improving Acute hep panel neg 08/11 CT A/P: * Peripancreatic inflammatory changes suggesting acute pancreatitis. No evidence to suggest pancreatic necrosis at this time. No peripancreatic fluid collection/pseudocyst. * Wall thickening and inflammatory changes about the second portion of the duodenum, likely secondary to pancreatic inflammation. * Some mildly prominent small bowel loops which may represent a mild reactive ileus. No evidence of small bowel obstruction. * Cholelithiasis. * Some patchy densities noted in the dependent portions of the lungs which may represent atelectatic changes. Subtle infiltrates not excluded. 08/11 Abd US: * Cholelithiasis. Negative sonographic Olson's sign. * No biliary ductal dilatation. * Increased hepatic echogenicity most commonly related to hepatic steatosis. Additional hepatocellular diseases to be excluded clinically. * Pancreas obscured by overlying bowel gas. 08/11 Abd MRI: Peripancreatic phlegmon, also described on recent CT scan, indicative of acute pancreatitis. Cholelithiasis. Negative for biliary ductal dilatation or evidence of choledocholithiasis. No gallbladder wall thickening. Fatty liver, also previously described Utox neg Cr 0.7 HIV screen neg Acute hep panel neg Plan: Cont empiric Zosyn #5/5 empiric No indication for steroids nor remdesivir for COVID+ given satting well on RA, and LFTs too high for RDV This institution does not have access to convalescent plasma and as pt satting well on RA not indicated Trend WBC, LFTs, lipase Monitor CBC/CMP Monitor temp curve, hemodynamics Monitor resp status D/w RN Thank you for this consult. [facility] will continue to follow. Subjective Allergies: Coded Allergies: No Known Allergies (Unverified , 08/11/20) AF NAD on RA WBC 9.4 Improving LFTs Improved abd pain No issues breathing Objective Last 24 Hour Vital Signs Date Time Temp Pulse Resp B/P (MAP) Pulse Ox O2 Delivery O2 Flow Rate FiO2 08/15/20 08:42 75 143/77 08/15/20 08:42 143/77 08/15/20 08:00 98.2 75 18 143/77 (99) 96 08/15/20 04:00 98.0 79 16 129/74 (92) 96 08/15/20 03:23 97.3 08/15/20 00:00 98.2 86 17 147/77 (100) 97 08/14/20 21:45 97.3 08/14/20 21:32 Room Air 08/14/20 21:17 88 145/82 08/14/20 21:17 145/82 08/14/20 20:00 99.2 94 19 155/84 (107) 95 08/14/20 16:54 97.3 08/14/20 16:00 98.6 96 18 157/86 (109) 98 08/14/20 12:00 97.3 74 18 163/88 (113) 98 08/14/20 10:38 80 158/88 08/14/20 10:37 158/88 Height (Feet): 5 Height (Inches): 1.00 Weight (Pounds): 150 Gen: NAD HEENT: NCAT Pulm: BL chest rise Abd: Non-distended Ext: No c/c/e Skin: No visible rashes Neuro: Awake Laboratory Tests Test 08/15/20 06:38 White Blood Count 9.4 K/UL (4.8-10.8) Red Blood Count 5.08 M/UL (4.70-6.10) Hemoglobin 13.8 G/DL (14.2-18.0) L Hematocrit 41.5 % (42.0-52.0) L Mean Corpuscular Volume 82 FL (80-99) Mean Corpuscular Hemoglobin 27.1 PG (27.0-31.0) Mean Corpuscular Hemoglobin Concent 33.2 G/DL (32.0-36.0) Red Cell Distribution Width 13.7 % (11.6-14.8) Platelet Count 151 K/UL (150-450) Mean Platelet Volume 10.6 FL (6.5-10.1) H Neutrophils (%) (Auto) 70.5 % (45.0-75.0) Lymphocytes (%) (Auto) 17.8 % (20.0-45.0) L Monocytes (%) (Auto) 9.0 % (1.0-10.0) Eosinophils (%) (Auto) 1.3 % (0.0-3.0) Basophils (%) (Auto) 1.3 % (0.0-2.0) Sodium Level 136 MMOL/L (136-145) Potassium Level 3.6 MMOL/L (3.5-5.1) Chloride Level 102 MMOL/L (98-107) Carbon Dioxide Level 23 MMOL/L (21-32) Anion Gap 11 mmol/L (5-15) Blood Urea Nitrogen 10 mg/dL (7-18) Creatinine 0.7 MG/DL (0.55-1.30) Estimat Glomerular Filtration Rate > 60 mL/min (>60) Glucose Level 119 MG/DL (74-106) H Calcium Level 8.5 MG/DL (8.5-10.1) Total Bilirubin 1.2 MG/DL (0.2-1.0) H Direct Bilirubin 0.4 MG/DL (0.0-0.3) H Aspartate Amino Transf (AST/SGOT) 43 U/L (15-37) H Alanine Aminotransferase (ALT/SGPT) 135 U/L (12-78) H Alkaline Phosphatase 121 U/L (46-116) H Total Protein 7.1 G/DL (6.4-8.2) Albumin 2.8 G/DL (3.4-5.0) L Globulin 4.3 g/dL Albumin/Globulin Ratio 0.7 (1.0-2.7) L Current Medications Medications (Trade) Dose Ordered Sig/Chayito Route PRN Reason Start Time Stop Time Status Last Admin Dose Admin Acetaminophen (Tylenol) 650 mg Q4H PRN ORAL Temp >100.5 08/11/20 13:15 09/10/20 13:14 08/12/20 21:09 Al Hydroxide/Mg Hydroxide (Mylanta II) 30 ml Q6H PRN ORAL dyspepsia 08/11/20 13:15 09/10/20 13:14 Amlodipine Besylate (Norvasc) 5 mg Q12HR ORAL 08/14/20 10:30 09/13/20 10:29 08/15/20 08:42 Clonidine HCl (Catapres tab) 0.2 mg Q2H PRN ORAL For High Blood Pressure 08/11/20 17:30 11/09/20 17:29 08/11/20 17:39 Dextrose (Dextrose 50%) 25 ml Q30M PRN IV Hypoglycemia 08/11/20 13:15 11/09/20 13:14 Dextrose (Dextrose 50%) 50 ml Q30M PRN IV Hypoglycemia 08/11/20 13:15 11/09/20 13:14 Diphenhydramine HCl (Benadryl) 25 mg Q6H PRN ORAL Itching/Pruritis 08/11/20 13:15 09/10/20 13:14 Docusate Sodium (Colace) 100 mg EVERY 12 HOURS ORAL 08/11/20 21:00 09/10/20 20:59 08/15/20 08:42 Heparin Sodium (Porcine) (Heparin 5000 units/ml) 5,000 units EVERY 12 HOURS SUBQ 08/11/20 21:00 09/25/20 20:59 08/15/20 08:43 Lisinopril (ZestriL) 10 mg EVERY 12 HOURS ORAL 08/12/20 21:00 09/11/20 20:59 08/15/20 08:42 Lorazepam (Ativan) 1 mg Q4H PRN ORAL For Anxiety 08/11/20 13:15 08/18/20 13:14 Morphine Sulfate (Morphine Sulfate) 2 mg Q2H PRN IVP Moderate Pain (Pain Scale 4-6) 08/11/20 13:15 08/18/20 13:14 08/15/20 02:53 Ondansetron HCl (Zofran) 4 mg Q6H PRN IVP Nausea & Vomiting 08/11/20 13:15 09/10/20 13:14 Pantoprazole (Protonix) 40 mg DAILY IV 08/12/20 09:00 09/11/20 08:59 08/15/20 08:42 Piperacillin Sod/ Tazobactam Sod 3.375 gm/Sodium Chloride 110 ml @ 27.5 mls/hr EVERY 8 HOURS IVPB 08/11/20 22:00 08/16/20 21:59 08/15/20 05:07 Potassium Chloride/Sodium Chloride 1,000 ml @ 100 mls/hr Q10H IV 08/11/20 15:00 09/10/20 14:59 08/15/20 09:34 Temazepam (Restoril) 15 mg HSPRN PRN ORAL Insomnia 08/11/20 13:15 08/18/20 13:14 Cari Tellez M.D. Aug 15, 2020 10:06
--- NOTE | 2020-08-15 10:41 | NUR ---
NURSE NOTES: RN found the right forearm with slight infiltration with NS. Patient does not complain of pain. RN elevated the patient's arm and provided with ice packs. RN started another IV on LH. It's intact, patent and asymptomatic.
--- NOTE | 2020-08-15 10:42 | General Progress Note ---
Subjective ROS Limited/Unobtainable: No Allergies: Coded Allergies: No Known Allergies (Unverified , 08/11/20) Objective Last 24 Hour Vital Signs Date Time Temp Pulse Resp B/P (MAP) Pulse Ox O2 Delivery O2 Flow Rate FiO2 08/15/20 09:00 Room Air 08/15/20 08:42 75 143/77 08/15/20 08:42 143/77 08/15/20 08:00 98.2 75 18 143/77 (99) 96 08/15/20 04:00 98.0 79 16 129/74 (92) 96 08/15/20 03:23 97.3 08/15/20 00:00 98.2 86 17 147/77 (100) 97 08/14/20 21:45 97.3 08/14/20 21:32 Room Air 08/14/20 21:17 88 145/82 08/14/20 21:17 145/82 08/14/20 20:00 99.2 94 19 155/84 (107) 95 08/14/20 16:54 97.3 08/14/20 16:00 98.6 96 18 157/86 (109) 98 08/14/20 12:00 97.3 74 18 163/88 (113) 98 Intake and Output 08/14/20 08/15/20 19:00 07:00 Intake Total 580 ml 2097.5 ml Output Total 1100 ml Balance -520 ml 2097.5 ml Intake Oral 480 ml 760 ml IV Total 100 ml 1337.5 ml Output Urine Total 1100 ml # Voids 2 Laboratory Tests 08/15/20 06:38: White Blood Count 9.4, Red Blood Count 5.08, Hemoglobin 13.8L, Hematocrit 41.5L, Mean Corpuscular Volume 82, Mean Corpuscular Hemoglobin 27.1, Mean Corpuscular Hemoglobin Concent 33.2, Red Cell Distribution Width 13.7, Platelet Count 151, Mean Platelet Volume 10.6H, Neutrophils (%) (Auto) 70.5, Lymphocytes (%) (Auto) 17.8L, Monocytes (%) (Auto) 9.0, Eosinophils (%) (Auto) 1.3, Basophils (%) (Auto) 1.3, Sodium Level 136, Potassium Level 3.6, Chloride Level 102, Carbon Dioxide Level 23, Anion Gap 11, Blood Urea Nitrogen 10, Creatinine 0.7, Estimat Glomerular Filtration Rate > 60, Glucose Level 119H, Calcium Level 8.5, Total Bilirubin 1.2H, Direct Bilirubin 0.4H, Aspartate Amino Transf (AST/SGOT) 43H, Alanine Aminotransferase (ALT/SGPT) 135H, Alkaline Phosphatase 121H, Total Protein 7.1, Albumin 2.8L, Globulin 4.3, Albumin/Globulin Ratio 0.7L Height (Feet): 5 Height (Inches): 1.00 Weight (Pounds): 150 General Appearance: no apparent distress EENT: normal ENT inspection Neck: supple Cardiovascular: normal rate Respiratory/Chest: decreased breath sounds Abdomen: normal bowel sounds, non tender, soft Extremities: non-tender Assessment/Plan Problem List: (1) Cholelithiasis ICD Codes: K80.20 - Calculus of gallbladder without cholecystitis without obstruction SNOMED: 778807844, 413583074 (2) Pancreatitis ICD Codes: K85.90 - Acute pancreatitis without necrosis or infection, unspecified SNOMED: 04460511, 911971451 (3) Transaminitis ICD Codes: R74.01 - Elevation of levels of liver transaminase levels SNOMED: 749088466, 351264671 (4) Elevated bilirubin ICD Codes: R17 - Unspecified jaundice SNOMED: 29848763 Status: unchanged Assessment/Plan: us and CT reviewed MRCP>>> reviewed no need for ercp ivf pain control hepatitis panel>>>neg repeat labs surg consult appreciated advance diet to low fat Thierno Dai MD Aug 15, 2020 10:42
--- NOTE | 2020-08-15 11:00 | Surgery Progress Note ---
Surgery Progress Note Subjective Symptoms: improved, tolerating diet, voiding well, passing flatus, BM, pain decreased Objective Last 24 Hour Vital Signs Date Time Temp Pulse Resp B/P (MAP) Pulse Ox O2 Delivery O2 Flow Rate FiO2 08/15/20 09:00 Room Air 08/15/20 08:42 75 143/77 08/15/20 08:42 143/77 08/15/20 08:00 98.2 75 18 143/77 (99) 96 08/15/20 04:00 98.0 79 16 129/74 (92) 96 08/15/20 03:23 97.3 08/15/20 00:00 98.2 86 17 147/77 (100) 97 08/14/20 21:45 97.3 08/14/20 21:32 Room Air 08/14/20 21:17 88 145/82 08/14/20 21:17 145/82 08/14/20 20:00 99.2 94 19 155/84 (107) 95 08/14/20 16:54 97.3 08/14/20 16:00 98.6 96 18 157/86 (109) 98 08/14/20 12:00 97.3 74 18 163/88 (113) 98 I&O Intake and Output 08/14/20 08/15/20 19:00 07:00 Intake Total 580 ml 2097.5 ml Output Total 1100 ml Balance -520 ml 2097.5 ml Intake Oral 480 ml 760 ml IV Total 100 ml 1337.5 ml Output Urine Total 1100 ml # Voids 2 Cardiovascular: RSR Respiratory: clear Abdomen: soft, non-tender, present bowel sounds, non-distended Extremities: no edema, no tenderness, no cyanosis Laboratory Tests Test 08/15/20 06:38 White Blood Count 9.4 K/UL (4.8-10.8) Red Blood Count 5.08 M/UL (4.70-6.10) Hemoglobin 13.8 G/DL (14.2-18.0) L Hematocrit 41.5 % (42.0-52.0) L Mean Corpuscular Volume 82 FL (80-99) Mean Corpuscular Hemoglobin 27.1 PG (27.0-31.0) Mean Corpuscular Hemoglobin Concent 33.2 G/DL (32.0-36.0) Red Cell Distribution Width 13.7 % (11.6-14.8) Platelet Count 151 K/UL (150-450) Mean Platelet Volume 10.6 FL (6.5-10.1) H Neutrophils (%) (Auto) 70.5 % (45.0-75.0) Lymphocytes (%) (Auto) 17.8 % (20.0-45.0) L Monocytes (%) (Auto) 9.0 % (1.0-10.0) Eosinophils (%) (Auto) 1.3 % (0.0-3.0) Basophils (%) (Auto) 1.3 % (0.0-2.0) Sodium Level 136 MMOL/L (136-145) Potassium Level 3.6 MMOL/L (3.5-5.1) Chloride Level 102 MMOL/L (98-107) Carbon Dioxide Level 23 MMOL/L (21-32) Anion Gap 11 mmol/L (5-15) Blood Urea Nitrogen 10 mg/dL (7-18) Creatinine 0.7 MG/DL (0.55-1.30) Estimat Glomerular Filtration Rate > 60 mL/min (>60) Glucose Level 119 MG/DL (74-106) H Calcium Level 8.5 MG/DL (8.5-10.1) Total Bilirubin 1.2 MG/DL (0.2-1.0) H Direct Bilirubin 0.4 MG/DL (0.0-0.3) H Aspartate Amino Transf (AST/SGOT) 43 U/L (15-37) H Alanine Aminotransferase (ALT/SGPT) 135 U/L (12-78) H Alkaline Phosphatase 121 U/L (46-116) H Total Protein 7.1 G/DL (6.4-8.2) Albumin 2.8 G/DL (3.4-5.0) L Globulin 4.3 g/dL Albumin/Globulin Ratio 0.7 (1.0-2.7) L Plan Problems: (1) Cholelithiasis (2) Pancreatitis Assessment & Plan: 60-year-old male with likely gallstone pancreatitis. Afebrile hemodynamic stable leukocytosis elevated LFTs elevated bilirubin elevated lipase. CT reviewed pancreatitis identified. Ultrasound noted cholelithiasis no gallbladder wall thickening no Olson's no acute cholecystitis. CBD not dilated. Potential passage of stone. Admit for IV fluids n.p.o. bowel rest. Will trend LFTs. May need MRCP versus ERCP we will discuss with GI. N.p.o. for now IV fluids meds reviewed orders placed okay for diet pain resolved trend labs abx There is some image degradation due to motion artifact. Gallstones are seen within the gallbladder. The bile ducts are normal in caliber, and no filling defects are demonstrated. There is no gallbladder wall thickening nor pericholecystic fluid. Considerable edema is seen surrounding the pancreas, in the mesenteric root, and tracking along the anterior retroperitoneum. No discrete organized fluid co llection is demonstrated. The pancreas is somewhat prominent. The pancreatic duct is nondilated. No definite focal pancreatic abnormality. Hepatic signal decreased on the fat-suppressed images suggests hepatic steatosis, also described on prior CT scan. No focal liver lesion demonstrated. The spleen, adrenals, kidneys are unremarkable. The bladder appears unremarkable Impression: Peripancreatic phlegmon, also described on recent CT scan, indicative of acute pancreatitis. Cholelithiasis. Negative for biliary ductal dilatation or evidence of choledocholithiasis. No gallbladder wall thickening Fatty liver, also previously described Some patchy opacities noted in the dependent portions of the lungs. No dense consolidation. No pleural effusion or pneumothorax. Heart size within normal limits. No pericardial effusion. Hepatic contour is smooth. Cholelithiasis is seen. No gallbladder wall thickening or appreciable pericholecystic inflammatory changes. No biliary ductal dilatation. Hepatic veins and portal veins appear patent. Spleen and adrenal glands unremarkable. There is inflammatory stranding about the pancreas concerning for acute pancreatitis. Pancreatic enhancement appears uniform. No peripancreatic fluid collection. Inflammatory stranding is also noted around the second and third portions of the duodenum. The kidneys enhance symmetrically. There is no urinary tract stone or hydronephrosis. Bladder is unremarkable. Prostate is not significantly enlarged. There is no free intraperitoneal air. There is no evidence of bowel obstruction. Appendix is not definitively visualized however there is no findings to seen to suggest acute appendicitis. Some mildly prominent small bowel loops are noted which may be related to reactive ileus. There is a small hiatal hernia. The abdominal aorta is normal in caliber. Small retroperitoneal lymph nodes are seen, possibly reactive in etiology. Some calcifications are noted in the subcarinal region which may represent partially calcified lymph nodes. There are degenerative changes in the spine. No acute fracture. No subcutis fluid collection or abscess. IMPRESSION: * Peripancreatic inflammatory changes suggesting acute pancreatitis. Correlation with pancreatic enzymes recommended. No evidence to suggest pancreatic necrosis at this time. No peripancreatic fluid collection/pseudocyst. * Wall thickening and inflammatory changes about the second portion of the duodenum, likely secondary to pancreatic inflammation. * Some mildly prominent small bowel loops which may represent a mild reactive ileus. No evidence of small bowel obstruction. * Cholelithiasis. * Some patchy densities noted in the dependent portions of the lungs which may represent atelectatic changes. Subtle infiltrates not excluded. Correlation with clinical findings recommended. * Small hiatal hernia (3) Transaminitis (4) Elevated bilirubin Juancarlos Jean Aug 15, 2020 11:00
[2020-08-15 12:00] VITALS: BP 146/83
[2020-08-15 16:00] VITALS: BP 162/87
--- NOTE | 2020-08-15 16:02 | Cardiac Electrophysiology PN ---
Assessment/Plan Assessment/Plan 1. Hypertension. Better on lisinopril 10 mg bid and Norvasc 5 po bid. Also on p.r.n. clonidine 2. Acute pancreatitis with lipase of more than 2000, amylase 405 as well as high AST and ALT of 590 and 513, as well as elevated total bilirubin of 2.4 as well as direct bilirubin of 1.9. The patient is on antibiotic and is followed by Dr. Dai from GI perspective.NPO except meds 3. COVID positive pneumonia. Followup with Dr. Tellez, currently on room air and saturating well. 4. Lymphopenia. Subjective Subjective Alert in NAD. No CP or SOB. On iv Abx. Homeless. Placement pending Objective Last 24 Hour Vital Signs Date Time Temp Pulse Resp B/P (MAP) Pulse Ox O2 Delivery O2 Flow Rate FiO2 08/15/20 12:00 97.7 74 18 146/83 (104) 96 08/15/20 09:00 Room Air 08/15/20 08:42 75 143/77 08/15/20 08:42 143/77 08/15/20 08:00 98.2 75 18 143/77 (99) 96 08/15/20 04:00 98.0 79 16 129/74 (92) 96 08/15/20 03:23 97.3 08/15/20 00:00 98.2 86 17 147/77 (100) 97 08/14/20 21:45 97.3 08/14/20 21:32 Room Air 08/14/20 21:17 88 145/82 08/14/20 21:17 145/82 08/14/20 20:00 99.2 94 19 155/84 (107) 95 08/14/20 16:54 97.3 Intake and Output 08/14/20 08/15/20 19:00 07:00 Intake Total 580 ml 2097.5 ml Output Total 1100 ml Balance -520 ml 2097.5 ml Intake Oral 480 ml 760 ml IV Total 100 ml 1337.5 ml Output Urine Total 1100 ml # Voids 2 Laboratory Tests Test 08/15/20 06:38 White Blood Count 9.4 K/UL (4.8-10.8) Red Blood Count 5.08 M/UL (4.70-6.10) Hemoglobin 13.8 G/DL (14.2-18.0) L Hematocrit 41.5 % (42.0-52.0) L Mean Corpuscular Volume 82 FL (80-99) Mean Corpuscular Hemoglobin 27.1 PG (27.0-31.0) Mean Corpuscular Hemoglobin Concent 33.2 G/DL (32.0-36.0) Red Cell Distribution Width 13.7 % (11.6-14.8) Platelet Count 151 K/UL (150-450) Mean Platelet Volume 10.6 FL (6.5-10.1) H Neutrophils (%) (Auto) 70.5 % (45.0-75.0) Lymphocytes (%) (Auto) 17.8 % (20.0-45.0) L Monocytes (%) (Auto) 9.0 % (1.0-10.0) Eosinophils (%) (Auto) 1.3 % (0.0-3.0) Basophils (%) (Auto) 1.3 % (0.0-2.0) Sodium Level 136 MMOL/L (136-145) Potassium Level 3.6 MMOL/L (3.5-5.1) Chloride Level 102 MMOL/L (98-107) Carbon Dioxide Level 23 MMOL/L (21-32) Anion Gap 11 mmol/L (5-15) Blood Urea Nitrogen 10 mg/dL (7-18) Creatinine 0.7 MG/DL (0.55-1.30) Estimat Glomerular Filtration Rate > 60 mL/min (>60) Glucose Level 119 MG/DL (74-106) H Calcium Level 8.5 MG/DL (8.5-10.1) Total Bilirubin 1.2 MG/DL (0.2-1.0) H Direct Bilirubin 0.4 MG/DL (0.0-0.3) H Aspartate Amino Transf (AST/SGOT) 43 U/L (15-37) H Alanine Aminotransferase (ALT/SGPT) 135 U/L (12-78) H Alkaline Phosphatase 121 U/L (46-116) H Total Protein 7.1 G/DL (6.4-8.2) Albumin 2.8 G/DL (3.4-5.0) L Globulin 4.3 g/dL Albumin/Globulin Ratio 0.7 (1.0-2.7) L Objective HEAD AND NECK: Showed no JVD. LUNGS: Coarse rhonchi. CARDIOVASCULAR: Regular S1 and S2 with no gallop or murmur. ABDOMEN: Nontender. EXTREMITIES: No pitting edema. Marlon Sarmiento MD Aug 15, 2020 16:01
--- NOTE | 2020-08-15 16:30 | NUR ---
NURSE NOTES: Patient's body temperature is 99.1. RN place an ice pack behind the patient's neck, covered the patient with only one blanket. Will continue to monitor.
--- NOTE | 2020-08-15 19:39 | NUR ---
NURSE HAND-OFF: Important Events on Shift:slight elevated body temperature, pain management Patient Status: stable Diet: low fat diet Pending Orders: n/a Pending Results/Labs:n/a Pending MD notification:n/a Latest Vital Signs: Temperature 99.1 , Pulse 93 , B/P 162 /87 , Respiratory Rate 18 , O2 SAT 96 , Room Air, O2 Flow Rate . Vital Sign Comment: elevated body temperature Latest Boothe Fall Score: 20 Fall Risk: Low Risk Safety Measures: Call light Within Reach, Bed Alarm Zone 1, Side Rails Side Rails x2, Bed position Low and Locked. Fall Precautions: Patient Fall Education Report given to Gertrudis.
[2020-08-15 20:00] VITALS: BP 184/97
[2020-08-16] VITALS: BP 129/75
[2020-08-16] MEDS: Morphine Sulfate 2mg/ml Inj(IV/IM USE ONLY) IVP PRN ×2 (02:17→20:56)
[2020-08-16 04:00] VITALS: BP 129/89
[2020-08-16] MEDS: NS w/KCl 20mEq 1000ml 1,000 ML IV SCH ×2 (05:31→17:29)
[2020-08-16] MEDS: Piperacillin/Tazobactam 3.375 GM in NS 110 ML IVPB SCH (05:35)
[2020-08-16 06:46] LABS: BASOPHILS % (AUTO) 1.6 % (0.0-2.0); EOSINOPHILS % (AUTO) 2.5 % (0.0-3.0); HEMATOCRIT 39.8 % (42.0-52.0); HEMOGLOBIN 13.3 G/DL (14.2-18.0); LYMPHOCYTES % (AUTO) 19.6 % (20.0-45.0); MEAN CORPUSCULAR VOLUME 81 FL (80-99); MONOCYTES % (AUTO) 8.6 % (1.0-10.0); NEUTROPHILS % (AUTO) 67.8 % (45.0-75.0); PLATELET COUNT 150 K/UL (150-450); RED BLOOD COUNT 4.89 M/UL (4.70-6.10); RED CELL DISTRIBUTION WIDTH 13.5 % (11.6-14.8); WHITE BLOOD COUNT 8.8 K/UL (4.8-10.8)
--- NOTE | 2020-08-16 07:46 | NUR ---
NURSE HAND-OFF: Important Events on Shift:[UNEVENTFUL NIGHT, RESTED WELL, PAIN MANAGEMENT ONGOING] Patient Status: [STABLE] Diet: [LOW FAT] Pending Orders: [AM LABS] Pending Results/Labs:[] Pending MD notification:[] Latest Vital Signs: Temperature 97.8 , Pulse 78 , B/P 129 /89 , Respiratory Rate 17 , O2 SAT 97 , Room Air, O2 Flow Rate . Vital Sign Comment: [STABLE, AFEBRILE] Latest Boothe Fall Score: 20 Fall Risk: Low Risk Safety Measures: Call light Within Reach, Bed Alarm Zone 1, Side Rails Side Rails x2, Bed position Low and Locked. Fall Precautions: Patient Fall Education Report given to [STEVIE FARIA].
[2020-08-16 07:49] LABS: ALANINE AMINOTRANSFERASE 119 U/L (12-78); ALBUMIN 2.6 G/DL (3.4-5.0); ALBUMIN/GLOBULIN RATIO 0.6 (1.0-2.7); ALKALINE PHOSPHATASE 119 U/L (46-116); ANION GAP 10 mmol/L (5-15); ASPARTATE AMINO TRANSFERASE 50 U/L (15-37); BILIRUBIN,TOTAL 0.9 MG/DL (0.2-1.0); BLOOD UREA NITROGEN 9 mg/dL (7-18); CALCIUM 8.6 MG/DL (8.5-10.1); CARBON DIOXIDE 24 MMOL/L (21-32); CHLORIDE 104 MMOL/L (98-107); CREATININE 0.6 MG/DL (0.55-1.30); POTASSIUM 3.7 MMOL/L (3.5-5.1); SODIUM 137 MMOL/L (136-145)
[2020-08-16 08:00] VITALS: BP 126/69
--- NOTE | 2020-08-16 08:00 | NUR ---
NURSE NOTES: Pt lying in bed w/bed in lowest position and call light within reach. Pt A&Ox4, VSS, and in no apparent distress. IV sites intact/asymptomatic w/IVF infusing and skin intact. Will continue to monitor.
[2020-08-16 08:26] LABS: AMYLASE 54 U/L (25-115)
--- NOTE | 2020-08-16 08:29 | Infectious Diseases Prog Note ---
Assessment/Plan 60yo M with: COVID positive Satting well on RA Afebrile Mild leukocytosis to 11, improved Lymphopenia 08/11 COVID positive 08/11 BCx NTD UA neg 08/12 CXR: Mild central venous congestion. Right lung streaky atelectasis. Acute pancreatitis Lipase >2000 Elevated LFTs to 590 / 513, improving Acute hep panel neg 08/11 CT A/P: * Peripancreatic inflammatory changes suggesting acute pancreatitis. No evidence to suggest pancreatic necrosis at this time. No peripancreatic fluid collection/pseudocyst. * Wall thickening and inflammatory changes about the second portion of the duodenum, likely secondary to pancreatic inflammation. * Some mildly prominent small bowel loops which may represent a mild reactive ileus. No evidence of small bowel obstruction. * Cholelithiasis. * Some patchy densities noted in the dependent portions of the lungs which may represent atelectatic changes. Subtle infiltrates not excluded. 08/11 Abd US: * Cholelithiasis. Negative sonographic Olson's sign. * No biliary ductal dilatation. * Increased hepatic echogenicity most commonly related to hepatic steatosis. Additional hepatocellular diseases to be excluded clinically. * Pancreas obscured by overlying bowel gas. 08/11 Abd MRI: Peripancreatic phlegmon, also described on recent CT scan, indicative of acute pancreatitis. Cholelithiasis. Negative for biliary ductal dilatation or evidence of choledocholithiasis. No gallbladder wall thickening. Fatty liver, also previously described Utox neg Cr 0.7 HIV screen neg Acute hep panel neg Plan: Stop empiric Zosyn #5/5 empiric Monitor off abx OK to d/c from ID standpoint off abx Needs COVID isolation through 08/21 08/16 SP Zosyn #5 empiric No indication for steroids nor remdesivir for COVID+ given satting well on RA, and LFTs too high for RDV This institution does not have access to convalescent plasma and as pt satting well on RA not indicated Monitor CBC/CMP Monitor temp curve, hemodynamics Monitor resp status D/w RN Thank you for this consult. [facility] will continue to follow. Subjective Allergies: Coded Allergies: No Known Allergies (Unverified , 08/11/20) AF NAD on RA WBC 8.8 Overall much improved, less abd pain, eating more wo issues Breathing fine wo complaints Objective Last 24 Hour Vital Signs Date Time Temp Pulse Resp B/P (MAP) Pulse Ox O2 Delivery O2 Flow Rate FiO2 08/16/20 04:00 97.8 78 17 129/89 (102) 97 08/16/20 02:47 97.8 08/16/20 00:00 97.8 81 16 129/75 (93) 97 08/15/20 21:37 99.1 08/15/20 21:15 88 128/79 08/15/20 21:15 128/79 08/15/20 20:33 Room Air 08/15/20 20:23 Room Air 08/15/20 20:00 98.2 102 20 184/97 (126) 95 08/15/20 18:06 99.1 08/15/20 16:00 99.1 93 18 162/87 (112) 96 08/15/20 12:00 97.7 74 18 146/83 (104) 96 08/15/20 09:00 Room Air 08/15/20 08:42 75 143/77 08/15/20 08:42 143/77 Height (Feet): 5 Height (Inches): 1.00 Weight (Pounds): 150 Gen: NAD HEENT: NCAT Pulm: BL chest rise on RA, non-labored Abd: Soft, NTND Ext: No c/c/e Skin: No visible rashes Neuro: Awake, alert, interactive Laboratory Tests Test 08/16/20 05:45 White Blood Count 8.8 K/UL (4.8-10.8) Red Blood Count 4.89 M/UL (4.70-6.10) Hemoglobin 13.3 G/DL (14.2-18.0) L Hematocrit 39.8 % (42.0-52.0) L Mean Corpuscular Volume 81 FL (80-99) Mean Corpuscular Hemoglobin 27.2 PG (27.0-31.0) Mean Corpuscular Hemoglobin Concent 33.4 G/DL (32.0-36.0) Red Cell Distribution Width 13.5 % (11.6-14.8) Platelet Count 150 K/UL (150-450) Mean Platelet Volume 9.7 FL (6.5-10.1) Neutrophils (%) (Auto) 67.8 % (45.0-75.0) Lymphocytes (%) (Auto) 19.6 % (20.0-45.0) L Monocytes (%) (Auto) 8.6 % (1.0-10.0) Eosinophils (%) (Auto) 2.5 % (0.0-3.0) Basophils (%) (Auto) 1.6 % (0.0-2.0) Sodium Level 137 MMOL/L (136-145) Potassium Level 3.7 MMOL/L (3.5-5.1) Chloride Level 104 MMOL/L (98-107) Carbon Dioxide Level 24 MMOL/L (21-32) Anion Gap 10 mmol/L (5-15) Blood Urea Nitrogen 9 mg/dL (7-18) Creatinine 0.6 MG/DL (0.55-1.30) Estimat Glomerular Filtration Rate > 60 mL/min (>60) Glucose Level 115 MG/DL (74-106) H Calcium Level 8.6 MG/DL (8.5-10.1) Total Bilirubin 0.9 MG/DL (0.2-1.0) Aspartate Amino Transf (AST/SGOT) 50 U/L (15-37) H Alanine Aminotransferase (ALT/SGPT) 119 U/L (12-78) H Alkaline Phosphatase 119 U/L (46-116) H Total Protein 6.6 G/DL (6.4-8.2) Albumin 2.6 G/DL (3.4-5.0) L Globulin 4.0 g/dL Albumin/Globulin Ratio 0.6 (1.0-2.7) L Amylase Level Pending Lipase Pending Current Medications Medications (Trade) Dose Ordered Sig/Chayito Route PRN Reason Start Time Stop Time Status Last Admin Dose Admin Acetaminophen (Tylenol) 650 mg Q4H PRN ORAL Temp >100.5 08/11/20 13:15 09/10/20 13:14 08/12/20 21:09 Al Hydroxide/Mg Hydroxide (Mylanta II) 30 ml Q6H PRN ORAL dyspepsia 08/11/20 13:15 09/10/20 13:14 Amlodipine Besylate (Norvasc) 5 mg Q12HR ORAL 08/14/20 10:30 09/13/20 10:29 08/15/20 21:15 Clonidine HCl (Catapres tab) 0.2 mg Q2H PRN ORAL For High Blood Pressure 08/11/20 17:30 11/09/20 17:29 08/11/20 17:39 Dextrose (Dextrose 50%) 25 ml Q30M PRN IV Hypoglycemia 08/11/20 13:15 11/09/20 13:14 Dextrose (Dextrose 50%) 50 ml Q30M PRN IV Hypoglycemia 08/11/20 13:15 11/09/20 13:14 Diphenhydramine HCl (Benadryl) 25 mg Q6H PRN ORAL Itching/Pruritis 08/11/20 13:15 09/10/20 13:14 Docusate Sodium (Colace) 100 mg EVERY 12 HOURS ORAL 08/11/20 21:00 09/10/20 20:59 08/15/20 21:15 Heparin Sodium (Porcine) (Heparin 5000 units/ml) 5,000 units EVERY 12 HOURS SUBQ 08/11/20 21:00 09/25/20 20:59 08/15/20 21:18 Lisinopril (ZestriL) 10 mg EVERY 12 HOURS ORAL 08/12/20 21:00 09/11/20 20:59 08/15/20 21:15 Lorazepam (Ativan) 1 mg Q4H PRN ORAL For Anxiety 08/11/20 13:15 08/18/20 13:14 Morphine Sulfate (Morphine Sulfate) 2 mg Q2H PRN IVP Moderate Pain (Pain Scale 4-6) 08/11/20 13:15 08/18/20 13:14 08/16/20 02:17 Ondansetron HCl (Zofran) 4 mg Q6H PRN IVP Nausea & Vomiting 08/11/20 13:15 09/10/20 13:14 Pantoprazole (Protonix) 40 mg DAILY IV 08/12/20 09:00 09/11/20 08:59 08/15/20 08:42 Piperacillin Sod/ Tazobactam Sod 3.375 gm/Sodium Chloride 110 ml @ 27.5 mls/hr EVERY 8 HOURS IVPB 08/11/20 22:00 08/16/20 21:59 08/16/20 05:35 Potassium Chloride/Sodium Chloride 1,000 ml @ 100 mls/hr Q10H IV 08/11/20 15:00 09/10/20 14:59 08/16/20 05:31 Temazepam (Restoril) 15 mg HSPRN PRN ORAL Insomnia 08/11/20 13:15 08/18/20 13:14 Cari Tellez M.D. Aug 16, 2020 08:29
--- NOTE | 2020-08-16 08:58 | General Progress Note ---
Subjective Constitutional: Reports: weakness Allergies: Coded Allergies: No Known Allergies (Unverified , 08/11/20) All Systems: reviewed and negative except above Subjective calm in bed Objective Last 24 Hour Vital Signs Date Time Temp Pulse Resp B/P (MAP) Pulse Ox O2 Delivery O2 Flow Rate FiO2 08/16/20 08:00 97.3 70 18 126/69 (88) 99 08/16/20 04:00 97.8 78 17 129/89 (102) 97 08/16/20 02:47 97.8 08/16/20 00:00 97.8 81 16 129/75 (93) 97 08/15/20 21:37 99.1 08/15/20 21:15 88 128/79 08/15/20 21:15 128/79 08/15/20 20:33 Room Air 08/15/20 20:23 Room Air 08/15/20 20:00 98.2 102 20 184/97 (126) 95 08/15/20 18:06 99.1 08/15/20 16:00 99.1 93 18 162/87 (112) 96 08/15/20 12:00 97.7 74 18 146/83 (104) 96 08/15/20 09:00 Room Air Intake and Output 08/15/20 08/16/20 19:00 07:00 Intake Total 580 ml 1957.5 ml Output Total 2500 ml 1100 ml Balance -1920 ml 857.5 ml Intake Oral 480 ml 720 ml IV Total 100 ml 1237.5 ml Output Urine Total 2500 ml 1100 ml Laboratory Tests 08/16/20 05:45: White Blood Count 8.8, Red Blood Count 4.89, Hemoglobin 13.3L, Hematocrit 39.8L, Mean Corpuscular Volume 81, Mean Corpuscular Hemoglobin 27.2, Mean Corpuscular Hemoglobin Concent 33.4, Red Cell Distribution Width 13.5, Platelet Count 150, Mean Platelet Volume 9.7, Neutrophils (%) (Auto) 67.8, Lymphocytes (%) (Auto) 19.6L, Monocytes (%) (Auto) 8.6, Eosinophils (%) (Auto) 2.5, Basophils (%) (Auto) 1.6, Sodium Level 137, Potassium Level 3.7, Chloride Level 104, Carbon Dioxide Level 24, Anion Gap 10, Blood Urea Nitrogen 9, Creatinine 0.6, Estimat Glomerular Filtration Rate > 60, Glucose Level 115H, Calcium Level 8.6, Total Bilirubin 0.9, Aspartate Amino Transf (AST/SGOT) 50H, Alanine Aminotransferase (ALT/SGPT) 119H, Alkaline Phosphatase 119H, Total Protein 6.6, Albumin 2.6L, Globulin 4.0, Albumin/Globulin Ratio 0.6L, Amylase Level 54, Lipase 456H Height (Feet): 5 Height (Inches): 1.00 Weight (Pounds): 150 General Appearance: lethargic EENT: PERRL/EOMI Neck: normal alignment Cardiovascular: normal peripheral pulses, normal rate, regular rhythm Respiratory/Chest: chest wall non-tender, lungs clear, normal breath sounds Abdomen: normal bowel sounds, non tender, soft Extremities: normal inspection Edema: no edema noted Arm (L), no edema noted Arm (R), no edema noted Leg (L), no edema noted Leg (R), no edema noted Pedal (L), no edema noted Pedal (R), no edema noted Generalized Neurologic: motor weakness Skin: normal pigmentation, warm/dry Assessment/Plan Problem List: (1) HTN (hypertension) ICD Codes: I10 - Essential (primary) hypertension SNOMED: 26631004 (2) Fever ICD Codes: R50.9 - Fever, unspecified SNOMED: 279688567 (3) Cholelithiasis ICD Codes: K80.20 - Calculus of gallbladder without cholecystitis without obstruction SNOMED: 792870180, 914049026 (4) Transaminitis ICD Codes: R74.01 - Elevation of levels of liver transaminase levels SNOMED: 813098936, 420352214 (5) Pancreatitis ICD Codes: K85.90 - Acute pancreatitis without necrosis or infection, unspecified SNOMED: 01516684, 122095917 (6) Malnutrition ICD Codes: E46 - Unspecified protein-calorie malnutrition SNOMED: 83906488 (7) COVID-19 ICD Codes: U07.1 - COVID-19 SNOMED: 814515051 Status: unchanged Assessment/Plan: gi sx f/u abx cbc bmp am Jasson Cui DO Aug 16, 2020 08:58
--- NOTE | 2020-08-16 09:05 | General Progress Note ---
Subjective ROS Limited/Unobtainable: No Allergies: Coded Allergies: No Known Allergies (Unverified , 08/11/20) Objective Last 24 Hour Vital Signs Date Time Temp Pulse Resp B/P (MAP) Pulse Ox O2 Delivery O2 Flow Rate FiO2 08/16/20 08:00 97.3 70 18 126/69 (88) 99 08/16/20 04:00 97.8 78 17 129/89 (102) 97 08/16/20 02:47 97.8 08/16/20 00:00 97.8 81 16 129/75 (93) 97 08/15/20 21:37 99.1 08/15/20 21:15 88 128/79 08/15/20 21:15 128/79 08/15/20 20:33 Room Air 08/15/20 20:23 Room Air 08/15/20 20:00 98.2 102 20 184/97 (126) 95 08/15/20 18:06 99.1 08/15/20 16:00 99.1 93 18 162/87 (112) 96 08/15/20 12:00 97.7 74 18 146/83 (104) 96 Intake and Output 08/15/20 08/16/20 19:00 07:00 Intake Total 580 ml 1957.5 ml Output Total 2500 ml 1100 ml Balance -1920 ml 857.5 ml Intake Oral 480 ml 720 ml IV Total 100 ml 1237.5 ml Output Urine Total 2500 ml 1100 ml Laboratory Tests 08/16/20 05:45: White Blood Count 8.8, Red Blood Count 4.89, Hemoglobin 13.3L, Hematocrit 39.8L, Mean Corpuscular Volume 81, Mean Corpuscular Hemoglobin 27.2, Mean Corpuscular Hemoglobin Concent 33.4, Red Cell Distribution Width 13.5, Platelet Count 150, Mean Platelet Volume 9.7, Neutrophils (%) (Auto) 67.8, Lymphocytes (%) (Auto) 19.6L, Monocytes (%) (Auto) 8.6, Eosinophils (%) (Auto) 2.5, Basophils (%) (Auto) 1.6, Sodium Level 137, Potassium Level 3.7, Chloride Level 104, Carbon Dioxide Level 24, Anion Gap 10, Blood Urea Nitrogen 9, Creatinine 0.6, Estimat Glomerular Filtration Rate > 60, Glucose Level 115H, Calcium Level 8.6, Total Bilirubin 0.9, Aspartate Amino Transf (AST/SGOT) 50H, Alanine Aminotransferase (ALT/SGPT) 119H, Alkaline Phosphatase 119H, Total Protein 6.6, Albumin 2.6L, Globulin 4.0, Albumin/Globulin Ratio 0.6L, Amylase Level 54, Lipase 456H Height (Feet): 5 Height (Inches): 1.00 Weight (Pounds): 150 General Appearance: no apparent distress EENT: normal ENT inspection Neck: supple Cardiovascular: normal rate Respiratory/Chest: decreased breath sounds Abdomen: normal bowel sounds, non tender, soft Extremities: non-tender Assessment/Plan Problem List: (1) Cholelithiasis ICD Codes: K80.20 - Calculus of gallbladder without cholecystitis without obstruction SNOMED: 603609551, 013684583 (2) Pancreatitis ICD Codes: K85.90 - Acute pancreatitis without necrosis or infection, unspecifi ed SNOMED: 02061597, 539016284 (3) Transaminitis ICD Codes: R74.01 - Elevation of levels of liver transaminase levels SNOMED: 673653290, 662282059 (4) Elevated bilirubin ICD Codes: R17 - Unspecified jaundice SNOMED: 25319082 Status: unchanged Assessment/Plan: us and CT reviewed MRCP>>> reviewed no need for ercp pain control hepatitis panel>>>neg repeat labs surg consult appreciated low fat diet Thierno Dai MD Aug 16, 2020 09:05
[2020-08-16] MEDS: Lisinopril 10mg tab ORAL SCH ×2 (09:23→20:55)
[2020-08-16] MEDS: Pantoprazole Inj IV SCH (09:23)
[2020-08-16] MEDS: Docusate 100mg cap ORAL SCH ×2 (09:23→20:54)
[2020-08-16] MEDS: Heparin 5000 units/ml inj SUBQ SCH ×2 (09:24→20:56)
--- NOTE | 2020-08-16 11:03 | NUR ---
RD ASSESSMENT & RECOMMENDATIONS SEE CARE ACTIVITY FOR COMPLETE ASSESSMENT DAILY ESTIMATED NEEDS: Needs based on Pancreatitis 64.6 25-30 kcals/kg 2735-9040 total kcals 1-1.5 g protein/kg 65-97 g total protein 25-30 mL/kg 3970-3126 total fluid mLs NUTRITION DIAGNOSIS: Decreased fat needs r/t pancreatitis as evidenced by elev amylase on adm, now wnl, elev Lipase now trending down(>2000->456), elev LFT's. CURRENT DIET: Now Low Fat PO DIET RECOMMENDATIONS: maintain Low Fat diet ADDITIONAL RECOMMENDATIONS: 1) Obtain a standing scale wt 2) Monitor for continued lipase trend (now down 456) 3) Covid ++, monitor resp status and po intake (now on room air)
--- NOTE | 2020-08-16 11:35 | Hematology/Onc Progress Note ---
Assessment/Plan Assessment/Plan # Thrombocytopenia - potential causes multifactorial, evaluate liver and viral etiologies to begin, with lymphopenia, charachteristic of covid19++++ --> Hep panel and HIV ordered --> US abd to evaluate for cirrhosis and hsm ordered --> Peripheral smear ordered to evaluate for blasts /schistocytes --> abx and other meds have been reviewed --> ok for ppx if plt >50k w/ wither heparin or lovenox --> Transfuse if Plt < 20k and fever, or if Plt < 10k without fever --> supportive care # Hypertension. Better on lisinopril 10 mg bid and Norvasc 5 po bid. --> Also on p.r.n. clonidine --> per Dr. Sarmiento # Acute pancreatitis with lipase of more than 2000, amylase 405 as well as high AST and ALT of 590 and 513, as well as elevated total bilirubin of 2.4 as well as direct bilirubin of 1.9. --> as per gi # COVID positive pneumonia. Followup with Dr. Tellez, currently on room air and saturating well. --> per pulm # Dvt ppx heparin sq Time of note does not necessarily correspond to the time the patient was seen. Appreciate consultation greatly. Subjective HEENT: Denies: no symptoms, eye pain, blurred vision, tearing, double vision, ear pain, ear discharge, nose pain, nose congestion, throat pain, throat swelling, mouth pain, mouth swelling, other Cardiovascular: Denies: no symptoms, chest pain, edema, irregular heart rate, lightheadedness, palpitations, syncope, other Respiratory: Denies: no symptoms, cough, shortness of breath, SOB with excertion, SOB at rest, sputum, wheezing, other Gastrointestinal/Abdominal: Denies: no symptoms, abdomen distended, abdominal pain, black stools, tarry stools, blood in stool, constipated, diarrhea, difficulty swallowing, nausea, poor appetite, poor fluid intake, rectal ble eding, vomiting, other Genitourinary: Denies: no symptoms, burning, discharge, frequency, flank pain, hematuria, incontinence, pain, urgency, other Neurologic/Psychiatric: Denies: no symptoms, anxiety, depressed, emotional problems, headache, numbness, paresthesia, pre-existing deficit, seizure, tingling, tremors, weakness, other Hematologic/Lymphatic: Denies: no symptoms, anemia, easy bleeding, easy bruising, adenopathy, other Allergies: Coded Allergies: No Known Allergies (Unverified , 08/11/20) Subjective 08/16 no major events, no bleeding, smear has been reviewed, off abx Objective Objective Current Medications Medications (Trade) Dose Ordered Sig/[place]ay[place] Route PRN Reason Start Time Stop Time Status Last Admin Dose Admin Acetaminophen (Tylenol) 650 mg Q4H PRN ORAL Temp >100.5 08/11/20 13:15 09/10/20 13:14 08/12/20 21:09 Al Hydroxide/Mg Hydroxide (Mylanta II) 30 ml Q6H PRN ORAL dyspepsia 08/11/20 13:15 09/10/20 13:14 Amlodipine Besylate (Norvasc) 5 mg Q12HR ORAL 08/14/20 10:30 09/13/20 10:29 08/16/20 09:23 Clonidine HCl (Catapres tab) 0.2 mg Q2H PRN ORAL For High Blood Pressure 08/11/20 17:30 11/09/20 17:29 08/11/20 17:39 Dextrose (Dextrose 50%) 25 ml Q30M PRN IV Hypoglycemia 08/11/20 13:15 11/09/20 13:14 Dextrose (Dextrose 50%) 50 ml Q30M PRN IV Hypoglycemia 08/11/20 13:15 11/09/20 13:14 Diphenhydramine HCl (Benadryl) 25 mg Q6H PRN ORAL Itching/Pruritis 08/11/20 13:15 09/10/20 13:14 Docusate Sodium (Colace) 100 mg EVERY 12 HOURS ORAL 08/11/20 21:00 09/10/20 20:59 08/16/20 09:23 Heparin Sodium (Porcine) (Heparin 5000 units/ml) 5,000 units EVERY 12 HOURS SUBQ 08/11/20 21:00 09/25/20 20:59 08/16/20 09:24 Lisinopril (ZestriL) 10 mg EVERY 12 HOURS ORAL 08/12/20 21:00 09/11/20 20:59 08/16/20 09:23 Lorazepam (Ativan) 1 mg Q4H PRN ORAL For Anxiety 08/11/20 13:15 08/18/20 13:14 Morphine Sulfate (Morphine Sulfate) 2 mg Q2H PRN IVP Moderate Pain (Pain Scale 4-6) 08/11/20 13:15 08/18/20 13:14 08/16/20 02:17 Ondansetron HCl (Zofran) 4 mg Q6H PRN IVP Nausea & Vomiting 08/11/20 13:15 09/10/20 13:14 Pantoprazole (Protonix) 40 mg DAILY IV 08/12/20 09:00 09/11/20 08:59 08/16/20 09:23 Potassium Chloride/Sodium Chloride 1,000 ml @ 100 mls/hr Q10H IV 08/11/20 15:00 09/10/20 14:59 08/16/20 05:31 Temazepam (Restoril) 15 mg HSPRN PRN ORAL Insomnia 08/11/20 13:15 08/18/20 13:14 Last 24 Hour Vital Signs Date Time Temp Pulse Resp B/P (MAP) Pulse Ox O2 Delivery O2 Flow Rate FiO2 08/16/20 09:23 70 126/69 08/16/20 09:23 126/69 08/16/20 08:00 97.3 70 18 126/69 (88) 99 08/16/20 04:00 97.8 78 17 129/89 (102) 97 08/16/20 02:47 97.8 08/16/20 00:00 97.8 81 16 129/75 (93) 97 08/15/20 21:37 99.1 08/15/20 21:15 88 128/79 08/15/20 21:15 128/79 08/15/20 20:33 Room Air 08/15/20 20:23 Room Air 08/15/20 20:00 98.2 102 20 184/97 (126) 95 08/15/20 18:06 99.1 08/15/20 16:00 99.1 93 18 162/87 (112) 96 08/15/20 12:00 97.7 74 18 146/83 (104) 96 08/15/20 09:00 Room Air 08/15/20 08:42 75 143/77 08/15/20 08:42 143/77 08/15/20 08:00 98.2 75 18 143/77 (99) 96 08/15/20 04:00 98.0 79 16 129/74 (92) 96 08/15/20 03:23 97.3 08/15/20 00:00 98.2 86 17 147/77 (100) 97 08/14/20 21:45 97.3 08/14/20 21:32 Room Air 08/14/20 21:17 88 145/82 08/14/20 21:17 145/82 08/14/20 20:00 99.2 94 19 155/84 (107) 95 08/14/20 16:54 97.3 08/14/20 16:00 98.6 96 18 157/86 (109) 98 08/14/20 12:00 97.3 74 18 163/88 (113) 98 Intake and Output 08/15/20 08/16/20 19:00 07:00 Intake Total 580 ml 1957.5 ml Output Total 2500 ml 1100 ml Balance -1920 ml 857.5 ml Intake Oral 480 ml 720 ml IV Total 100 ml 1237.5 ml Output Urine Total 2500 ml 1100 ml Labs Test 08/14/20 06:40 08/15/20 06:38 08/16/20 05:45 White Blood Count 10.0 K/UL (4.8-10.8) 9.4 K/UL (4.8-10.8) 8.8 K/UL (4.8-10.8) Red Blood Count 4.88 M/UL (4.70-6.10) 5.08 M/UL (4.70-6.10) 4.89 M/UL (4.70-6.10) Hemoglobin 13.4 G/DL (14.2-18.0) 13.8 G/DL (14.2-18.0) 13.3 G/DL (14.2-18.0) Hematocrit 39.7 % (42.0-52.0) 41.5 % (42.0-52.0) 39.8 % (42.0-52.0) Mean Corpuscular Volume 81 FL (80-99) 82 FL (80-99) 81 FL (80-99) Mean Corpuscular Hemoglobin 27.4 PG (27.0-31.0) 27.1 PG (27.0-31.0) 27.2 PG (27.0-31.0) Mean Corpuscular Hemoglobin Concent 33.6 G/DL (32.0-36.0) 33.2 G/DL (32.0-36.0) 33.4 G/DL (32.0-36.0) Red Cell Distribution Width 13.4 % (11.6-14.8) 13.7 % (11.6-14.8) 13.5 % (11.6-14.8) Platelet Count 132 K/UL (150-450) 151 K/UL (150-450) 150 K/UL (150-450) Mean Platelet Volume 11.1 FL (6.5-10.1) 10.6 FL (6.5-10.1) 9.7 FL (6.5-10.1) Neutrophils (%) (Auto) 73.4 % (45.0-75.0) 70.5 % (45.0-75.0) 67.8 % (45.0-75.0) Lymphocytes (%) (Auto) 15.5 % (20.0-45.0) 17.8 % (20.0-45.0) 19.6 % (20.0-45.0) Monocytes (%) (Auto) 8.4 % (1.0-10.0) 9.0 % (1.0-10.0) 8.6 % (1.0-10.0) Eosinophils (%) (Auto) 1.0 % (0.0-3.0) 1.3 % (0.0-3.0) 2.5 % (0.0-3.0) Basophils (%) (Auto) 1.7 % (0.0-2.0) 1.3 % (0.0-2.0) 1.6 % (0.0-2.0) Sodium Level 137 MMOL/L (136-145) 136 MMOL/L (136-145) 137 MMOL/L (136-145) Potassium Level 3.6 MMOL/L (3.5-5.1) 3.6 MMOL/L (3.5-5.1) 3.7 MMOL/L (3.5-5.1) Chloride Level 104 MMOL/L (98-107) 102 MMOL/L (98-107) 104 MMOL/L (98-107) Carbon Dioxide Level 23 MMOL/L (21-32) 23 MMOL/L (21-32) 24 MMOL/L (21-32) Anion Gap 10 mmol/L (5-15) 11 mmol/L (5-15) 10 mmol/L (5-15) Blood Urea Nitrogen 8 mg/dL (7-18) 10 mg/dL (7-18) 9 mg/dL (7-18) Creatinine 0.6 MG/DL (0.55-1.30) 0.7 MG/DL (0.55-1.30) 0.6 MG/DL (0.55-1.30) Estimat Glomerular Filtration Rate > 60 mL/min (>60) > 60 mL/min (>60) > 60 mL/min (>60) Glucose Level 119 MG/DL (74-106) 119 MG/DL (74-106) 115 MG/DL (74-106) Calcium Level 8.2 MG/DL (8.5-10.1) 8.5 MG/DL (8.5-10.1) 8.6 MG/DL (8.5-10.1) Total Bilirubin 1.7 MG/DL (0.2-1.0) 1.2 MG/DL (0.2-1.0) 0.9 MG/DL (0.2-1.0) Direct Bilirubin 0.6 MG/DL (0.0-0.3) 0.4 MG/DL (0.0-0.3) Aspartate Amino Transf (AST/SGOT) 48 U/L (15-37) 43 U/L (15-37) 50 U/L (15-37) Alanine Aminotransferase (ALT/SGPT) 165 U/L (12-78) 135 U/L (12-78) 119 U/L (12-78) Alkaline Phosphatase 121 U/L (46-116) 121 U/L (46-116) 119 U/L (46-116) Total Protein 6.8 G/DL (6.4-8.2) 7.1 G/DL (6.4-8.2) 6.6 G/DL (6.4-8.2) Albumin 2.9 G/DL (3.4-5.0) 2.8 G/DL (3.4-5.0) 2.6 G/DL (3.4-5.0) Globulin 3.9 g/dL 4.3 g/dL 4.0 g/dL Albumin/Globulin Ratio 0.7 (1.0-2.7) 0.7 (1.0-2.7) 0.6 (1.0-2.7) Amylase Level 65 U/L (25-115) 54 U/L (25-115) Lipase 476 U/L (73-393) 456 U/L (73-393) Height (Feet): 5 Height (Inches): 1.00 Weight (Pounds): 150 Objective PHYSICAL EXAMINATION VITALS: Reviewed. GENERAL: No acute distress. HEENT: Normocephalic, atraumatic. NECK: Supple. CV: Regular rate. No S3, S4. CHEST: Clear to auscultation bilaterally. No crackles, wheezes, rales. ABDOMEN: Soft, nontender, nondistended. EXTREMITIES: Without cyanosis, swelling, edema. Normal range of motion. NEUROLOGIC: Alert, oriented. Willy Morales MD Aug 16, 2020 11:35
[2020-08-16 12:00] VITALS: BP 139/70
--- NOTE | 2020-08-16 13:02 | Cardiac Electrophysiology PN ---
Assessment/Plan Assessment/Plan 1. Hypertension. Better on lisinopril 10 mg bid and Norvasc 5 po bid. Also on p.r.n. clonidine 2. Acute pancreatitis with lipase of more than 2000, amylase 405 as well as high AST and ALT of 590 and 513, as well as elevated total bilirubin of 2.4 as well as direct bilirubin of 1.9. The patient is on antibiotic and is followed by Dr. Dai from GI perspective. Diet resumed 3. COVID positive pneumonia on room air and saturating well. 4. Lymphopenia. Subjective Subjective Alert in NAD. No CP or SOB. On iv Abx. In Covid isolation Objective Last 24 Hour Vital Signs Date Time Temp Pulse Resp B/P (MAP) Pulse Ox O2 Delivery O2 Flow Rate FiO2 08/16/20 12:00 97.9 83 18 139/70 (93) 99 08/16/20 09:23 70 126/69 08/16/20 09:23 126/69 08/16/20 08:00 97.3 70 18 126/69 (88) 99 08/16/20 04:00 97.8 78 17 129/89 (102) 97 08/16/20 02:47 97.8 08/16/20 00:00 97.8 81 16 129/75 (93) 97 08/15/20 21:37 99.1 08/15/20 21:15 88 128/79 08/15/20 21:15 128/79 08/15/20 20:33 Room Air 08/15/20 20:23 Room Air 08/15/20 20:00 98.2 102 20 184/97 (126) 95 08/15/20 18:06 99.1 08/15/20 16:00 99.1 93 18 162/87 (112) 96 Intake and Output 08/15/20 08/16/20 19:00 07:00 Intake Total 580 ml 1957.5 ml Output Total 2500 ml 1100 ml Balance -1920 ml 857.5 ml Intake Oral 480 ml 720 ml IV Total 100 ml 1237.5 ml Output Urine Total 2500 ml 1100 ml Laboratory Tests Test 08/16/20 05:45 White Blood Count 8.8 K/UL (4.8-10.8) Red Blood Count 4.89 M/UL (4.70-6.10) Hemoglobin 13.3 G/DL (14.2-18.0) L Hematocrit 39.8 % (42.0-52.0) L Mean Corpuscular Volume 81 FL (80-99) Mean Corpuscular Hemoglobin 27.2 PG (27.0-31.0) Mean Corpuscular Hemoglobin Concent 33.4 G/DL (32.0-36.0) Red Cell Distribution Width 13.5 % (11.6-14.8) Platelet Count 150 K/UL (150-450) Mean Platelet Volume 9.7 FL (6.5-10.1) Neutrophils (%) (Auto) 67.8 % (45.0-75.0) Lymphocytes (%) (Auto) 19.6 % (20.0-45.0) L Monocytes (%) (Auto) 8.6 % (1.0-10.0) Eosinophils (%) (Auto) 2.5 % (0.0-3.0) Basophils (%) (Auto) 1.6 % (0.0-2.0) Sodium Level 137 MMOL/L (136-145) Potassium Level 3.7 MMOL/L (3.5-5.1) Chloride Level 104 MMOL/L (98-107) Carbon Dioxide Level 24 MMOL/L (21-32) Anion Gap 10 mmol/L (5-15) Blood Urea Nitrogen 9 mg/dL (7-18) Creatinine 0.6 MG/DL (0.55-1.30) Estimat Glomerular Filtration Rate > 60 mL/min (>60) Glucose Level 115 MG/DL (74-106) H Calcium Level 8.6 MG/DL (8.5-10.1) Total Bilirubin 0.9 MG/DL (0.2-1.0) Aspartate Amino Transf (AST/SGOT) 50 U/L (15-37) H Alanine Aminotransferase (ALT/SGPT) 119 U/L (12-78) H Alkaline Phosphatase 119 U/L (46-116) H Total Protein 6.6 G/DL (6.4-8.2) Albumin 2.6 G/DL (3.4-5.0) L Globulin 4.0 g/dL Albumin/Globulin Ratio 0.6 (1.0-2.7) L Amylase Level 54 U/L (25-115) Lipase 456 U/L (73-393) H Objective HEAD AND NECK: Showed no JVD. LUNGS: Coarse rhonchi. CARDIOVASCULAR: Regular S1 and S2 with no gallop or murmur. ABDOMEN: Nontender. EXTREMITIES: No pitting edema. Marlon Sarmiento MD Aug 16, 2020 13:02
--- NOTE | 2020-08-16 13:35 | NUR ---
CASE MANAGEMENT:REVIEW 08/16/20 SI: PANCREATITIS. CHOLELITHIASIS. TRANSAMINITIS 97.9 83 18 139/70 99% ON RA AST/ALT+50/119 LIPASE+456 IS: IVF+KCL@100/HR NORVASC PO Q12 LISINOPRIL PO Q12 IV PROTONIX QD HEPARIN SQ Q12 IV MORPHINE Q2HRS PRN : MED/SURG STATUS 4 EAST DCP: FROM ??? PLAN: ADVANCE DIET ~ LOW FAT
[2020-08-16 16:00] VITALS: BP 141/70
--- NOTE | 2020-08-16 19:18 | NUR ---
NURSE HAND-OFF: Important Events on Shift: Pt no longer on IV abx; cleared by ID for D/C. Patient Status: Stable Diet: Low fat Pending Orders: None Pending Results/Labs: None Pending MD notification: None Latest Vital Signs: Temperature 98.1 , Pulse 81 , B/P 141 /70 , Respiratory Rate 18 , O2 SAT 99 , Room Air, O2 Flow Rate . Vital Sign Comment: Stable Latest Boothe Fall Score: 20 Fall Risk: Low Risk Safety Measures: Call light , Bed Alarm , Side Rails , Bed position . Fall Precautions: Report given to STEVIE Solano.
[2020-08-16 20:02] VITALS: BP 167/88
--- NOTE | 2020-08-16 20:22 | NUR ---
NURSE NOTES: Received patient awake, alert, verbal, ambulatory, no SOB noted.
[2020-08-17] VITALS (8 sets, daily range): BP systolic 120–144; BP diastolic 70–83
[2020-08-17] MEDS: NS w/KCl 20mEq 1000ml 1,000 ML IV SCH ×3 (02:14→20:13)
--- NOTE | 2020-08-17 06:31 | Hematology/Onc Progress Note ---
Assessment/Plan Assessment/Plan # Thrombocytopenia - potential causes multifactorial, evaluate liver and viral etiologies to begin, with lymphopenia, charachteristic of covid19++++ --> Hep panel and HIV -->neg --> US abd to evaluate for cirrhosis and hsm is neg --> Peripheral smear ordered to evaluate for blasts /schistocytes --> abx and other meds have been reviewed --> ok for ppx if plt >50k w/ wither heparin or lovenox --> Transfuse if Plt < 20k and fever, or if Plt < 10k without fever --> supportive care --> plt 125-->150 # Hypertension. Better on lisinopril 10 mg bid and Norvasc 5 po bid. --> Also on p.r.n. clonidine --> per Dr. Sarmiento # Acute pancreatitis with lipase of more than 2000, amylase 405 as well as high AST and ALT of 590 and 513, as well as elevated total bilirubin of 2.4 as well as direct bilirubin of 1.9. --> as per gi # COVID positive pneumonia. Followup with Dr. Tellez, currently on room air and saturating well. --> per pulm # Dvt ppx heparin sq Time of note does not necessarily correspond to the time the patient was seen. Appreciate consultation greatly. Subjective Constitutional: Denies: no symptoms, chills, fever, malaise, weakness, other HEENT: Denies: no symptoms, eye pain, blurred vision, tearing, double vision, ear pain, ear discharge, nose pain, nose congestion, throat pain, throat swelling, mouth pain, mouth swelling, other Cardiovascular: Denies: no symptoms, chest pain, edema, irregular heart rate, lightheadedness, palpitations, syncope, other Respiratory: Denies: no symptoms, cough, shortness of breath, SOB with excertion, SOB at rest, sputum, wheezing, other Genitourinary: Denies: no symptoms, burning, discharge, frequency, flank pain, hematuria, incontinence, pain, urgency, other Neurologic/Psychiatric: Denies: no symptoms, anxiety, depressed, emotional problems, headache, numbness, paresthesia, pre-existing deficit, seizure, tingling, tremors, weakness, other Allergies: Coded Allergies: No Known Allergies (Unverified , 08/11/20) All Systems: reviewed and negative except above Subjective 08/16 no major events, no bleeding, smear has been reviewed, off abx 08/17 awake, alert, is ambulatory labs reviewed, meds noted Objective Objective Current Medications Medications (Trade) Dose Ordered Sig/Chayito Route PRN Reason Start Time Stop Time Status Last Admin Dose Admin Acetaminophen (Tylenol) 650 mg Q4H PRN ORAL Temp >100.5 08/11/20 13:15 09/10/20 13:14 08/12/20 21:09 Al Hydroxide/Mg Hydroxide (Mylanta II) 30 ml Q6H PRN ORAL dyspepsia 08/11/20 13:15 09/10/20 13:14 Amlodipine Besylate (Norvasc) 5 mg Q12HR ORAL 08/14/20 10:30 09/13/20 10:29 08/16/20 20:55 Clonidine HCl (Catapres tab) 0.2 mg Q2H PRN ORAL For High Blood Pressure 08/11/20 17:30 11/09/20 17:29 08/11/20 17:39 Dextrose (Dextrose 50%) 25 ml Q30M PRN IV Hypoglycemia 08/11/20 13:15 11/09/20 13:14 Dextrose (Dextrose 50%) 50 ml Q30M PRN IV Hypoglycemia 08/11/20 13:15 11/09/20 13:14 Diphenhydramine HCl (Benadryl) 25 mg Q6H PRN ORAL Itching/Pruritis 08/11/20 13:15 09/10/20 13:14 Docusate Sodium (Colace) 100 mg EVERY 12 HOURS ORAL 08/11/20 21:00 09/10/20 20:59 08/16/20 20:54 Heparin Sodium (Porcine) (Heparin 5000 units/ml) 5,000 units EVERY 12 HOURS SUBQ 08/11/20 21:00 09/25/20 20:59 08/16/20 20:56 Lisinopril (ZestriL) 10 mg EVERY 12 HOURS ORAL 08/12/20 21:00 09/11/20 20:59 08/16/20 20:55 Lorazepam (Ativan) 1 mg Q4H PRN ORAL For Anxiety 08/11/20 13:15 08/18/20 13:14 Morphine Sulfate (Morphine Sulfate) 2 mg Q2H PRN IVP Moderate Pain (Pain Scale 4-6) 08/11/20 13:15 08/18/20 13:14 08/16/20 20:56 Ondansetron HCl (Zofran) 4 mg Q6H PRN IVP Nausea & Vomiting 08/11/20 13:15 09/10/20 13:14 Pantoprazole (Protonix) 40 mg DAILY IV 08/12/20 09:00 09/11/20 08:59 08/16/20 09:23 Potassium Chloride/Sodium Chloride 1,000 ml @ 100 mls/hr Q10H IV 08/11/20 15:00 09/10/20 14:59 08/17/20 02:14 Temazepam (Restoril) 15 mg HSPRN PRN ORAL Insomnia 08/11/20 13:15 08/18/20 13:14 Last 24 Hour Vital Signs Date Time Temp Pulse Resp B/P (MAP) Pulse Ox O2 Delivery O2 Flow Rate FiO2 08/17/20 04:17 97.3 79 18 137/76 (96) 99 08/17/20 00:09 97.7 80 18 125/77 (93) 100 08/16/20 21:30 98.6 08/16/20 20:55 81 167/88 08/16/20 20:55 167/88 08/16/20 20:12 Room Air 08/16/20 20:02 98.6 18 167/88 (114) 100 08/16/20 16:00 98.1 81 18 141/70 (93) 99 08/16/20 12:00 97.9 83 18 139/70 (93) 99 08/16/20 09:23 70 126/69 08/16/20 09:23 126/69 08/16/20 09:00 Room Air 08/16/20 08:00 97.3 70 18 126/69 (88) 99 08/16/20 04:00 97.8 78 17 129/89 (102) 97 08/16/20 02:47 97.8 08/16/20 00:00 97.8 81 16 129/75 (93) 97 08/15/20 21:37 99.1 08/15/20 21:15 88 128/79 08/15/20 21:15 128/79 08/15/20 20:33 Room Air 08/15/20 20:23 Room Air 08/15/20 20:00 98.2 102 20 184/97 (126) 95 08/15/20 18:06 99.1 08/15/20 16:00 99.1 93 18 162/87 (112) 96 08/15/20 12:00 97.7 74 18 146/83 (104) 96 08/15/20 09:00 Room Air 08/15/20 08:42 75 143/77 08/15/20 08:42 143/77 08/15/20 08:00 98.2 75 18 143/77 (99) 96 Intake and Output 08/16/20 08/17/20 19:00 07:00 Intake Total 480 ml 1200 ml Output Total 1200 ml 1100 ml Balance -720 ml 100 ml Intake Oral 480 ml IV Total 1200 ml Output Urine Total 1200 ml 1100 ml Labs Test 08/14/20 06:40 08/15/20 06:38 08/16/20 05:45 08/17/20 05:55 White Blood Count 10.0 K/UL (4.8-10.8) 9.4 K/UL (4.8-10.8) 8.8 K/UL (4.8-10.8) Red Blood Count 4.88 M/UL (4.70-6.10) 5.08 M/UL (4.70-6.10) 4.89 M/UL (4.70-6.10) Hemoglobin 13.4 G/DL (14.2-18.0) 13.8 G/DL (14.2-18.0) 13.3 G/DL (14.2-18.0) Hematocrit 39.7 % (42.0-52.0) 41.5 % (42.0-52.0) 39.8 % (42.0-52.0) Mean Corpuscular Volume 81 FL (80-99) 82 FL (80-99) 81 FL (80-99) Mean Corpuscular Hemoglobin 27.4 PG (27.0-31.0) 27.1 PG (27.0-31.0) 27.2 PG (27.0-31.0) Mean Corpuscular Hemoglobin Concent 33.6 G/DL (32.0-36.0) 33.2 G/DL (32.0-36.0) 33.4 G/DL (32.0-36.0) Red Cell Distribution Width 13.4 % (11.6-14.8) 13.7 % (11.6-14.8) 13.5 % (11.6-14.8) Platelet Count 132 K/UL (150-450) 151 K/UL (150-450) 150 K/UL (150-450) Mean Platelet Volume 11.1 FL (6.5-10.1) 10.6 FL (6.5-10.1) 9.7 FL (6.5-10.1) Neutrophils (%) (Auto) 73.4 % (45.0-75.0) 70.5 % (45.0-75.0) 67.8 % (45.0-75.0) Lymphocytes (%) (Auto) 15.5 % (20.0-45.0) 17.8 % (20.0-45.0) 19.6 % (20.0-45.0) Monocytes (%) (Auto) 8.4 % (1.0-10.0) 9.0 % (1.0-10.0) 8.6 % (1.0-10.0) Eosinophils (%) (Auto) 1.0 % (0.0-3.0) 1.3 % (0.0-3.0) 2.5 % (0.0-3.0) Basophils (%) (Auto) 1.7 % (0.0-2.0) 1.3 % (0.0-2.0) 1.6 % (0.0-2.0) Sodium Level 137 MMOL/L (136-145) 136 MMOL/L (136-145) 137 MMOL/L (136-145) Potassium Level 3.6 MMOL/L (3.5-5.1) 3.6 MMOL/L (3.5-5.1) 3.7 MMOL/L (3.5-5.1) Chloride Level 104 MMOL/L (98-107) 102 MMOL/L (98-107) 104 MMOL/L (98-107) Carbon Dioxide Level 23 MMOL/L (21-32) 23 MMOL/L (21-32) 24 MMOL/L (21-32) Anion Gap 10 mmol/L (5-15) 11 mmol/L (5-15) 10 mmol/L (5-15) Blood Urea Nitrogen 8 mg/dL (7-18) 10 mg/dL (7-18) 9 mg/dL (7-18) Creatinine 0.6 MG/DL (0.55-1.30) 0.7 MG/DL (0.55-1.30) 0.6 MG/DL (0.55-1.30) Estimat Glomerular Filtration Rate > 60 mL/min (>60) > 60 mL/min (>60) > 60 mL/min (>60) Glucose Level 119 MG/DL (74-106) 119 MG/DL (74-106) 115 MG/DL (74-106) Calcium Level 8.2 MG/DL (8.5-10.1) 8.5 MG/DL (8.5-10.1) 8.6 MG/DL (8.5-10.1) Total Bilirubin 1.7 MG/DL (0.2-1.0) 1.2 MG/DL (0.2-1.0) 0.9 MG/DL (0.2-1.0) Direct Bilirubin 0.6 MG/DL (0.0-0.3) 0.4 MG/DL (0.0-0.3) Aspartate Amino Transf (AST/SGOT) 48 U/L (15-37) 43 U/L (15-37) 50 U/L (15-37) Alanine Aminotransferase (ALT/SGPT) 165 U/L (12-78) 135 U/L (12-78) 119 U/L (12-78) Alkaline Phosphatase 121 U/L (46-116) 121 U/L (46-116) 119 U/L (46-116) Total Protein 6.8 G/DL (6.4-8.2) 7.1 G/DL (6.4-8.2) 6.6 G/DL (6.4-8.2) Albumin 2.9 G/DL (3.4-5.0) 2.8 G/DL (3.4-5.0) 2.6 G/DL (3.4-5.0) Globulin 3.9 g/dL 4.3 g/dL 4.0 g/dL Albumin/Globulin Ratio 0.7 (1.0-2.7) 0.7 (1.0-2.7) 0.6 (1.0-2.7) Amylase Level 65 U/L (25-115) 54 U/L (25-115) Lipase 476 U/L (73-393) 456 U/L (73-393) Height (Feet): 5 Height (Inches): 1.00 Weight (Pounds): 150 Objective PHYSICAL EXAMINATION VITALS: Reviewed. GENERAL: No acute distress. HEENT: Normocephalic, atraumatic. NECK: Supple. CV: Regular rate. No S3, S4. CHEST: Clear to auscultation bilaterally. No crackles, wheezes, rales. ABDOMEN: Soft, nontender, nondistended. EXTREMITIES: Without cyanosis, swelling, edema. Normal range of motion. NEUROLOGIC: Alert, oriented. Willy Morales MD Aug 17, 2020 06:31
[2020-08-17 06:37] LABS: BASOPHILS % (AUTO) 1.6 % (0.0-2.0); EOSINOPHILS % (AUTO) 2.3 % (0.0-3.0); HEMATOCRIT 43.5 % (42.0-52.0); HEMOGLOBIN 14.3 G/DL (14.2-18.0); LYMPHOCYTES % (AUTO) 18.5 % (20.0-45.0); MEAN CORPUSCULAR VOLUME 81 FL (80-99); MONOCYTES % (AUTO) 7.9 % (1.0-10.0); NEUTROPHILS % (AUTO) 69.7 % (45.0-75.0); PLATELET COUNT 179 K/UL (150-450); RED BLOOD COUNT 5.34 M/UL (4.70-6.10); RED CELL DISTRIBUTION WIDTH 13.6 % (11.6-14.8); WHITE BLOOD COUNT 8.7 K/UL (4.8-10.8)
[2020-08-17 06:49] LABS: ALANINE AMINOTRANSFERASE 123 U/L (12-78); ALBUMIN 2.9 G/DL (3.4-5.0); ALBUMIN/GLOBULIN RATIO 0.7 (1.0-2.7); ALKALINE PHOSPHATASE 133 U/L (46-116); ANION GAP 10 mmol/L (5-15); ASPARTATE AMINO TRANSFERASE 57 U/L (15-37); BILIRUBIN,TOTAL 0.6 MG/DL (0.2-1.0); BLOOD UREA NITROGEN 9 mg/dL (7-18); CALCIUM 8.5 MG/DL (8.5-10.1); CARBON DIOXIDE 24 MMOL/L (21-32); CHLORIDE 103 MMOL/L (98-107); CREATININE 0.7 MG/DL (0.55-1.30); POTASSIUM 3.8 MMOL/L (3.5-5.1); SODIUM 137 MMOL/L (136-145)
[2020-08-17 07:07] LABS: AMYLASE 65 U/L (25-115)
--- NOTE | 2020-08-17 07:14 | NUR ---
NURSE NOTES: Report given to Thelma Patel RN
--- NOTE | 2020-08-17 07:15 | NUR ---
NURSE NOTES: Received report from Xiomara HUBBARD. Patient is awake in bed, A&O x4, Telugu-speaking only. Not in acute distress. Patient reports no pain. IVF running per order. On room air, no SOB, regular chest expansion. Updated on care plan. Bed in lowest position, call light in reach, side rails up.
--- NOTE | 2020-08-17 08:25 | General Progress Note ---
Subjective ROS Limited/Unobtainable: No Allergies: Coded Allergies: No Known Allergies (Unverified , 08/11/20) Objective Last 24 Hour Vital Signs Date Time Temp Pulse Resp B/P (MAP) Pulse Ox O2 Delivery O2 Flow Rate FiO2 08/17/20 04:17 97.3 79 18 137/76 (96) 99 08/17/20 00:09 97.7 80 18 125/77 (93) 100 08/16/20 21:30 98.6 08/16/20 20:55 81 167/88 08/16/20 20:55 167/88 08/16/20 20:12 Room Air 08/16/20 20:02 98.6 18 167/88 (114) 100 08/16/20 16:00 98.1 81 18 141/70 (93) 99 08/16/20 12:00 97.9 83 18 139/70 (93) 99 08/16/20 09:23 70 126/69 08/16/20 09:23 126/69 08/16/20 09:00 Room Air Intake and Output 08/16/20 08/17/20 19:00 07:00 Intake Total 480 ml 1300 ml Output Total 1200 ml 1100 ml Balance -720 ml 200 ml Intake Oral 480 ml IV Total 1300 ml Output Urine Total 1200 ml 1100 ml Laboratory Tests 08/17/20 05:55: White Blood Count 8.7, Red Blood Count 5.34, Hemoglobin 14.3, Hematocrit 43.5, Mean Corpuscular Volume 81, Mean Corpuscular Hemoglobin 26.8L, Mean Corpuscular Hemoglobin Concent 32.9, Red Cell Distribution Width 13.6, Platelet Count 179, Mean Platelet Volume 9.5, Neutrophils (%) (Auto) 69.7, Lymphocytes (%) (Auto) 18.5L, Monocytes (%) (Auto) 7.9, Eosinophils (%) (Auto) 2.3, Basophils (%) (Auto) 1.6, Sodium Level 137, Potassium Level 3.8, Chloride Level 103, Carbon Dioxide Level 24, Anion Gap 10, Blood Urea Nitrogen 9, Creatinine 0.7, Estimat Glomerular Filtration Rate > 60, Glucose Level 121H, Calcium Level 8.5, Total Bilirubin 0.6, Aspartate Amino Transf (AST/SGOT) 57H, Alanine Aminotransferase (ALT/SGPT) 123H, Alkaline Phosphatase 133H, Total Protein 7.1, Albumin 2.9L, Globulin 4.2, Albumin/Globulin Ratio 0.7L, Amylase Level 65, Lipase 500H Height (Feet): 5 Height (Inches): 1.00 Weight (Pounds): 150 General Appearance: no apparent distress EENT: PERRL/EOMI Neck: supple Cardiovascular: normal rate Respiratory/Chest: decreased breath sounds Abdomen: normal bowel sounds, non tender, soft Extremities: non-tender Assessment/Plan Problem List: (1) Cholelithiasis ICD Codes: K80.20 - Calculus of gallbladder without cholecystitis without obstruction SNOMED: 735375940, [id number] (2) Pancreatitis ICD Codes: K85.90 - Acute pancreatitis without necrosis or infection, unspecified SNOMED: 92422407, 741049693 (3) Transaminitis ICD Codes: R74.01 - Elevation of levels of liver transaminase levels SNOMED: 914582764, 307025812 (4) Elevated bilirubin ICD Codes: R17 - Unspecified jaundice SNOMED: 42284455 Status: unchanged Assessment/Plan: us and CT reviewed MRCP>>> reviewed no need for ercp pain control hepatitis panel>>>neg repeat labs surg consult appreciated low fat diet Thierno Dai MD Aug 17, 2020 08:25
[2020-08-17] MEDS: Lisinopril 10mg tab ORAL SCH ×2 (08:36→20:07)
[2020-08-17] MEDS: Pantoprazole Inj IV SCH (08:36)
[2020-08-17] MEDS: Docusate 100mg cap ORAL SCH ×2 (08:36→20:13)
[2020-08-17] MEDS: Heparin 5000 units/ml inj SUBQ SCH ×2 (08:37→20:14)
--- NOTE | 2020-08-17 09:03 | Infectious Diseases Prog Note ---
Assessment/Plan 60yo M with: COVID positive Satting well on RA Afebrile Mild leukocytosis to 11, improved Lymphopenia 08/11 COVID positive 08/11 BCx NTD UA neg 08/12 CXR: Mild central venous congestion. Right lung streaky atelectasis. Acute pancreatitis Lipase >2000 Elevated LFTs to 590 / 513, improving Acute hep panel neg 08/11 CT A/P: * Peripancreatic inflammatory changes suggesting acute pancreatitis. No evidence to suggest pancreatic necrosis at this time. No peripancreatic fluid collection/pseudocyst. * Wall thickening and inflammatory changes about the second portion of the duodenum, likely secondary to pancreatic inflammation. * Some mildly prominent small bowel loops which may represent a mild reactive ileus. No evidence of small bowel obstruction. * Cholelithiasis. * Some patchy densities noted in the dependent portions of the lungs which may represent atelectatic changes. Subtle infiltrates not excluded. 08/11 Abd US: * Cholelithiasis. Negative sonographic Olson's sign. * No biliary ductal dilatation. * Increased hepatic echogenicity most commonly related to hepatic steatosis. Additional hepatocellular diseases to be excluded clinically. * Pancreas obscured by overlying bowel gas. 08/11 Abd MRI: Peripancreatic phlegmon, also described on recent CT scan, indicative of acute pancreatitis. Cholelithiasis. Negative for biliary ductal dilatation or evidence of choledocholithiasis. No gallbladder wall thickening. Fatty liver, also previously described Utox neg Cr 0.7 HIV screen neg Acute hep panel neg Plan: Monitor off abx OK to d/c from ID standpoint off abx Needs COVID isolation through 08/21 08/16 SP Zosyn #5 empiric No indication for steroids nor remdesivir for COVID+ given satting well on RA, and LFTs too high for RDV This institution does not have access to convalescent plasma and as pt satting well on RA not indicated Monitor CBC/CMP Monitor temp curve, hemodynamics Monitor resp status D/w RN Thank you for this consult. [facility] will continue to follow. Subjective Allergies: Coded Allergies: No Known Allergies (Unverified , 08/11/20) AF NAD on RA WBC 8.7 Off abx now Doing well, denies any more abd pain, eating fine. Breathing is normal Objective Last 24 Hour Vital Signs Date Time Temp Pulse Resp B/P (MAP) Pulse Ox O2 Delivery O2 Flow Rate FiO2 08/17/20 08:36 75 131/74 08/17/20 08:36 131/74 08/17/20 08:32 131/74 (93) 08/17/20 08:00 97.8 75 18 120/76 (91) 98 08/17/20 04:17 97.3 79 18 137/76 (96) 99 08/17/20 00:09 97.7 80 18 125/77 (93) 100 08/16/20 21:30 98.6 08/16/20 20:55 81 167/88 08/16/20 20:55 167/88 08/16/20 20:12 Room Air 08/16/20 20:02 98.6 18 167/88 (114) 100 08/16/20 16:00 98.1 81 18 141/70 (93) 99 08/16/20 12:00 97.9 83 18 139/70 (93) 99 08/16/20 09:23 70 126/69 08/16/20 09:23 126/69 Height (Feet): 5 Height (Inches): 1.00 Weight (Pounds): 150 Gen: NAD HEENT: NCAT Pulm: BL chest rise on RA, non-labored Abd: Soft, NTND Ext: No c/c/e Skin: No visible rashes Neuro: Awake, alert, interactive Laboratory Tests Test 08/17/20 05:55 White Blood Count 8.7 K/UL (4.8-10.8) Red Blood Count 5.34 M/UL (4.70-6.10) Hemoglobin 14.3 G/DL (14.2-18.0) Hematocrit 43.5 % (42.0-52.0) Mean Corpuscular Volume 81 FL (80-99) Mean Corpuscular Hemoglobin 26.8 PG (27.0-31.0) L Mean Corpuscular Hemoglobin Concent 32.9 G/DL (32.0-36.0) Red Cell Distribution Width 13.6 % (11.6-14.8) Platelet Count 179 K/UL (150-450) Mean Platelet Volume 9.5 FL (6.5-10.1) Neutrophils (%) (Auto) 69.7 % (45.0-75.0) Lymphocytes (%) (Auto) 18.5 % (20.0-45.0) L Monocytes (%) (Auto) 7.9 % (1.0-10.0) Eosinophils (%) (Auto) 2.3 % (0.0-3.0) Basophils (%) (Auto) 1.6 % (0.0-2.0) Sodium Level 137 MMOL/L (136-145) Potassium Level 3.8 MMOL/L (3.5-5.1) Chloride Level 103 MMOL/L (98-107) Carbon Dioxide Level 24 MMOL/L (21-32) Anion Gap 10 mmol/L (5-15) Blood Urea Nitrogen 9 mg/dL (7-18) Creatinine 0.7 MG/DL (0.55-1.30) Estimat Glomerular Filtration Rate > 60 mL/min (>60) Glucose Level 121 MG/DL (74-106) H Calcium Level 8.5 MG/DL (8.5-10.1) Total Bilirubin 0.6 MG/DL (0.2-1.0) Aspartate Amino Transf (AST/SGOT) 57 U/L (15-37) H Alanine Aminotransferase (ALT/SGPT) 123 U/L (12-78) H Alkaline Phosphatase 133 U/L (46-116) H Total Protein 7.1 G/DL (6.4-8.2) Albumin 2.9 G/DL (3.4-5.0) L Globulin 4.2 g/dL Albumin/Globulin Ratio 0.7 (1.0-2.7) L Amylase Level 65 U/L (25-115) Lipase 500 U/L (73-393) H Current Medications Medications (Trade) Dose Ordered Sig/Chayito Route PRN Reason Start Time Stop Time Status Last Admin Dose Admin Acetaminophen (Tylenol) 650 mg Q4H PRN ORAL Temp >100.5 08/11/20 13:15 09/10/20 13:14 08/12/20 21:09 Al Hydroxide/Mg Hydroxide (Mylanta II) 30 ml Q6H PRN ORAL dyspepsia 08/11/20 13:15 09/10/20 13:14 Amlodipine Besylate (Norvasc) 5 mg Q12HR ORAL 08/14/20 10:30 09/13/20 10:29 08/17/20 08:36 Clonidine HCl (Catapres tab) 0.2 mg Q2H PRN ORAL For High Blood Pressure 08/11/20 17:30 11/09/20 17:29 08/11/20 17:39 Dextrose (Dextrose 50%) 25 ml Q30M PRN IV Hypoglycemia 08/11/20 13:15 11/09/20 13:14 Dextrose (Dextrose 50%) 50 ml Q30M PRN IV Hypoglycemia 08/11/20 13:15 11/09/20 13:14 Diphenhydramine HCl (Benadryl) 25 mg Q6H PRN ORAL Itching/Pruritis 08/11/20 13:15 09/10/20 13:14 Docusate Sodium (Colace) 100 mg EVERY 12 HOURS ORAL 08/11/20 21:00 09/10/20 20:59 08/17/20 08:36 Heparin Sodium (Porcine) (Heparin 5000 units/ml) 5,000 units EVERY 12 HOURS SUBQ 08/11/20 21:00 09/25/20 20:59 08/17/20 08:37 Lisinopril (ZestriL) 10 mg EVERY 12 HOURS ORAL 08/12/20 21:00 09/11/20 20:59 08/17/20 08:36 Lorazepam (Ativan) 1 mg Q4H PRN ORAL For Anxiety 08/11/20 13:15 08/18/20 13:14 Morphine Sulfate (Morphine Sulfate) 2 mg Q2H PRN IVP Moderate Pain (Pain Scale 4-6) 08/11/20 13:15 08/18/20 13:14 08/16/20 20:56 Ondansetron HCl (Zofran) 4 mg Q6H PRN IVP Nausea & Vomiting 08/11/20 13:15 09/10/20 13:14 Pantoprazole (Protonix) 40 mg DAILY IV 08/12/20 09:00 09/11/20 08:59 08/17/20 08:36 Potassium Chloride/Sodium Chloride 1,000 ml @ 100 mls/hr Q10H IV 08/11/20 15:00 09/10/20 14:59 08/17/20 02:14 Temazepam (Restoril) 15 mg HSPRN PRN ORAL Insomnia 08/11/20 13:15 08/18/20 13:14 Cari Tellez M.D. Aug 17, 2020 09:03
--- NOTE | 2020-08-17 09:30 | NUR ---
CASE MANAGEMENT:REVIEW 08/17/20 SI: COVID 19 INFECTION ACUTE PANCREATITIS. CHOLELITHIASIS. TRANSAMINITIS 97.8 75 18 120/76 98% ON RA AST/ALT+57/123 LIPASE+500 IS: IVF+KCL@100/HR NORVASC PO Q12 LISINOPRIL PO Q12 IV PROTONIX QD HEPARIN SQ Q12 IV MORPHINE Q2HRS PRN : MED/SURG STATUS 4 EAST DCP: FROM ??? PLAN: ADVANCE DIET ~ LOW FAT
--- NOTE | 2020-08-17 11:06 | Surgery Progress Note ---
Surgery Progress Note Subjective Symptoms: improved, pain absent, tolerating diet, voiding well, passing flatus, BM Additional Comments wants placement Objective Last 24 Hour Vital Signs Date Time Temp Pulse Resp B/P (MAP) Pulse Ox O2 Delivery O2 Flow Rate FiO2 08/17/20 09:00 Room Air 08/17/20 08:36 75 131/74 08/17/20 08:36 131/74 08/17/20 08:32 131/74 (93) 08/17/20 08:00 97.8 75 18 120/76 (91) 98 08/17/20 04:17 97.3 79 18 137/76 (96) 99 08/17/20 00:09 97.7 80 18 125/77 (93) 100 08/16/20 21:30 98.6 08/16/20 20:55 81 167/88 08/16/20 20:55 167/88 08/16/20 20:12 Room Air 08/16/20 20:02 98.6 18 167/88 (114) 100 08/16/20 16:00 98.1 81 18 141/70 (93) 99 08/16/20 12:00 97.9 83 18 139/70 (93) 99 I&O Intake and Output 08/16/20 08/17/20 19:00 07:00 Intake Total 480 ml 1300 ml Output Total 1200 ml 1100 ml Balance -720 ml 200 ml Intake Oral 480 ml IV Total 1300 ml Output Urine Total 1200 ml 1100 ml Cardiovascular: RSR Respiratory: clear Abdomen: soft, flat, non-tender, present bowel sounds, non-distended Extremities: no edema, no tenderness, no cyanosis Laboratory Tests Test 08/17/20 05:55 White Blood Count 8.7 K/UL (4.8-10.8) Red Blood Count 5.34 M/UL (4.70-6.10) Hemoglobin 14.3 G/DL (14.2-18.0) Hematocrit 43.5 % (42.0-52.0) Mean Corpuscular Volume 81 FL (80-99) Mean Corpuscular Hemoglobin 26.8 PG (27.0-31.0) L Mean Corpuscular Hemoglobin Concent 32.9 G/DL (32.0-36.0) Red Cell Distribution Width 13.6 % (11.6-14.8) Platelet Count 179 K/UL (150-450) Mean Platelet Volume 9.5 FL (6.5-10.1) Neutrophils (%) (Auto) 69.7 % (45.0-75.0) Lymphocytes (%) (Auto) 18.5 % (20.0-45.0) L Monocytes (%) (Auto) 7.9 % (1.0-10.0) Eosinophils (%) (Auto) 2.3 % (0.0-3.0) Basophils (%) (Auto) 1.6 % (0.0-2.0) Sodium Level 137 MMOL/L (136-145) Potassium Level 3.8 MMOL/L (3.5-5.1) Chloride Level 103 MMOL/L (98-107) Carbon Dioxide Level 24 MMOL/L (21-32) Anion Gap 10 mmol/L (5-15) Blood Urea Nitrogen 9 mg/dL (7-18) Creatinine 0.7 MG/DL (0.55-1.30) Estimat Glomerular Filtration Rate > 60 mL/min (>60) Glucose Level 121 MG/DL (74-106) H Calcium Level 8.5 MG/DL (8.5-10.1) Total Bilirubin 0.6 MG/DL (0.2-1.0) Aspartate Amino Transf (AST/SGOT) 57 U/L (15-37) H Alanine Aminotransferase (ALT/SGPT) 123 U/L (12-78) H Alkaline Phosphatase 133 U/L (46-116) H Total Protein 7.1 G/DL (6.4-8.2) Albumin 2.9 G/DL (3.4-5.0) L Globulin 4.2 g/dL Albumin/Globulin Ratio 0.7 (1.0-2.7) L Amylase Level 65 U/L (25-115) Lipase 500 U/L (73-393) H Plan Problems: (1) Cholelithiasis (2) Pancreatitis Assessment & Plan: 60-year-old male with likely gallstone pancreatitis. Afebrile hemodynamic stable leukocytosis elevated LFTs elevated bilirubin elevated lipase. CT reviewed pancreatitis identified. Ultrasound noted cholelithiasis no gallbladder wall thickening no Olson's no acute cholecy stitis. CBD not dilated. Potential passage of stone. Admit for IV fluids n.p.o. bowel rest. Will trend LFTs. May need MRCP versus ERCP we will discuss with GI. N.p.o. for now IV fluids meds reviewed orders placed okay for diet pain resolved trend labs abx There is some image degradation due to motion artifact. Gallstones are seen within the gallbladder. The bile ducts are normal in caliber, and no filling defects are demonstrated. There is no gallbladder wall thickening nor pericholecystic fluid. Considerable edema is seen surrounding the pancreas, in the mesenteric root, and tracking along the anterior retroperitoneum. No discrete organized fluid collection is demonstrated. The pancreas is somewhat prominent. The pancreatic duct is nondilated. No definite focal pancreatic abnormality. Hepatic signal decreased on the fat-suppressed images suggests hepatic steatosis, also described on prior CT scan. No focal liver lesion demonstrated. The spleen, adrenals, kidneys are unremarkable. The bladder appears unremarkable Impression: Peripancreatic phlegmon, also described on recent CT scan, indicative of acute pancreatitis. Cholelithiasis. Negative for biliary ductal dilatation or evidence of choledocholithiasis. No gallbladder wall thickening Fatty liver, also previously described Some patchy opacities noted in the dependent portions of the lungs. No dense consolidation. No pleural effusion or pneumothorax. Heart size within normal limits. No pericardial effusion. Hepatic contour is smooth. Cholelithiasis is seen. No gallbladder wall thickening or appreciable pericholecystic inflammatory changes. No biliary ductal dilatation. Hepatic veins and portal veins appear patent. Spleen and adrenal glands unremarkable. There is inflammatory stranding about the pancreas concerning for acute pancreatitis. Pancreatic enhancement appears uniform. No peripancreatic fluid collection. Inflammatory stranding is also noted around the second and third portions of the duodenum. The kidneys enhance symmetrically. There is no urinary tract stone or hydronephrosis. Bladder is unremarkable. Prostate is not significantly enlarged. There is no free intraperitoneal air. There is no evidence of bowel obstruction. Appendix is not definitively visualized however there is no findings to seen to suggest acute appendicitis. Some mildly prominent small bowel loops are noted which may be related to reactive ileus. There is a small hiatal hernia. The abdominal aorta is normal in caliber. Small retroperitoneal lymph nodes are seen, possibly reactive in etiology. Some calcifications are noted in the subcarinal region which may represent partially calcified lymph nodes. There are degenerative changes in the spine. No acute fracture. No subcutis fluid collection or abscess. IMPRESSION: * Peripancreatic inflammatory changes suggesting acute pancreatitis. Correlation with pancreatic enzymes recommended. No evidence to suggest pancreatic necrosis at this time. No peripancreatic fluid collection/pseudocyst. * Wall thickening and inflammatory changes about the second portion of the duodenum, likely secondary to pancreatic inflammation. * Some mildly prominent small bowel loops which may represent a mild reactive ileus. No evidence of small bowel obstruction. * Cholelithiasis. * Some patchy densities noted in the dependent portions of the lungs which may represent atelectatic changes. Subtle infiltrates not excluded. Correlation with clinical findings recommended. * Small hiatal hernia (3) Transaminitis (4) Elevated bilirubin Additional Comments of note patient seen and examined 08/16. unable to write note for log in issue Juancarlos Jean Aug 17, 2020 11:06
--- NOTE | 2020-08-17 12:06 | Cardiac Electrophysiology PN ---
Assessment/Plan Assessment/Plan 1. Hypertension. Better on lisinopril 10 mg bid and Norvasc 5 po bid and p.r.n. clonidine 2. Acute pancreatitis with lipase of more than 2000, amylase 405 as well as high AST and ALT of 590 and 513, as well as elevated total bilirubin of 2.4 as well as direct bilirubin of 1.9. The patient is on antibiotic and is followed by Dr. Dai from GI perspective. Diet resumed 3. COVID positive pneumonia on room air and saturating well. 4. Lymphopenia. Subjective Subjective Alert in NAD. No CP or SOB. On iv Abx. In Covid isolation on RA Objective Last 24 Hour Vital Signs Date Time Temp Pulse Resp B/P (MAP) Pulse Ox O2 Delivery O2 Flow Rate FiO2 08/17/20 09:00 Room Air 08/17/20 08:36 75 131/74 08/17/20 08:36 131/74 08/17/20 08:32 131/74 (93) 08/17/20 08:00 97.8 75 18 120/76 (91) 98 08/17/20 04:17 97.3 79 18 137/76 (96) 99 08/17/20 00:09 97.7 80 18 125/77 (93) 100 08/16/20 21:30 98.6 08/16/20 20:55 81 167/88 08/16/20 20:55 167/88 08/16/20 20:12 Room Air 08/16/20 20:02 98.6 18 167/88 (114) 100 08/16/20 16:00 98.1 81 18 141/70 (93) 99 Intake and Output 08/16/20 08/17/20 18:59 06:59 Intake Total 480 ml 1200 ml Output Total 1200 ml 1100 ml Balance -720 ml 100 ml Intake Oral 480 ml IV Total 1200 ml Output Urine Total 1200 ml 1100 ml Laboratory Tests Test 08/17/20 05:55 White Blood Count 8.7 K/UL (4.8-10.8) Red Blood Count 5.34 M/UL (4.70-6.10) Hemoglobin 14.3 G/DL (14.2-18.0) Hematocrit 43.5 % (42.0-52.0) Mean Corpuscular Volume 81 FL (80-99) Mean Corpuscular Hemoglobin 26.8 PG (27.0-31.0) L Mean Corpuscular Hemoglobin Concent 32.9 G/DL (32.0-36.0) Red Cell Distribution Width 13.6 % (11.6-14.8) Platelet Count 179 K/UL (150-450) Mean Platelet Volume 9.5 FL (6.5-10.1) Neutrophils (%) (Auto) 69.7 % (45.0-75.0) Lymphocytes (%) (Auto) 18.5 % (20.0-45.0) L Monocytes (%) (Auto) 7.9 % (1.0-10.0) Eosinophils (%) (Auto) 2.3 % (0.0-3.0) Basophils (%) (Auto) 1.6 % (0.0-2.0) Sodium Level 137 MMOL/L (136-145) Potassium Level 3.8 MMOL/L (3.5-5.1) Chloride Level 103 MMOL/L (98-107) Carbon Dioxide Level 24 MMOL/L (21-32) Anion Gap 10 mmol/L (5-15) Blood Urea Nitrogen 9 mg/dL (7-18) Creatinine 0.7 MG/DL (0.55-1.30) Estimat Glomerular Filtration Rate > 60 mL/min (>60) Glucose Level 121 MG/DL (74-106) H Calcium Level 8.5 MG/DL (8.5-10.1) Total Bilirubin 0.6 MG/DL (0.2-1.0) Aspartate Amino Transf (AST/SGOT) 57 U/L (15-37) H Alanine Aminotransferase (ALT/SGPT) 123 U/L (12-78) H Alkaline Phosphatase 133 U/L (46-116) H Total Protein 7.1 G/DL (6.4-8.2) Albumin 2.9 G/DL (3.4-5.0) L Globulin 4.2 g/dL Albumin/Globulin Ratio 0.7 (1.0-2.7) L Amylase Level 65 U/L (25-115) Lipase 500 U/L (73-393) H Objective HEAD AND NECK: Showed no JVD. LUNGS: Coarse rhonchi. CARDIOVASCULAR: Regular S1 and S2 with no gallop or murmur. ABDOMEN: Nontender. EXTREMITIES: No pitting edema. Marlon Sarmiento MD Aug 17, 2020 12:05
--- NOTE | 2020-08-17 13:58 | NUR ---
NURSE HAND-OFF: Important Events on Shift:[Pending discharge order] Patient Status: [stable] Diet: [Low fat] Pending Orders: [] Pending Results/Labs:[] Pending MD notification:[] Latest Vital Signs: Temperature 98.0 , Pulse 77 , B/P 130 /70 , Respiratory Rate 18 , O2 SAT 98 , Room Air, O2 Flow Rate . Vital Sign Comment: [] Latest Boothe Fall Score: 35 Fall Risk: Medium Risk Safety Measures: Call light Within Reach, Bed Alarm Zone 1, Side Rails Side Rails x2, Bed position Low and Locked. Fall Precautions: Patient Fall Education Report given to [Raegan RN].
--- NOTE | 2020-08-17 14:11 | NUR ---
[employer]ING [employer] OPERATOR NOTE STACEY spoke w/ [facility] STEVIE Martin, that there is a dc order for pt. Veronica will look for the bed availability and will get back to this SW. Addendum: 08/17/20 at 1454 by CARLOS IBARRA STACEY faxed the clinicals to [facility] as per request. . STACEY will continue to F/U.
--- NOTE | 2020-08-17 14:12 | General Progress Note ---
Subjective Constitutional: Reports: weakness Allergies: Coded Allergies: No Known Allergies (Unverified , 08/11/20) All Systems: reviewed and negative except above Subjective calm in bed Objective Last 24 Hour Vital Signs Date Time Temp Pulse Resp B/P (MAP) Pulse Ox O2 Delivery O2 Flow Rate FiO2 08/17/20 12:00 98.0 77 130/70 (90) 08/17/20 09:00 Room Air 08/17/20 08:36 75 131/74 08/17/20 08:36 131/74 08/17/20 08:32 131/74 (93) 08/17/20 08:00 97.8 75 18 120/76 (91) 98 08/17/20 04:17 97.3 79 18 137/76 (96) 99 08/17/20 00:09 97.7 80 18 125/77 (93) 100 08/16/20 21:30 98.6 08/16/20 20:55 81 167/88 08/16/20 20:55 167/88 08/16/20 20:12 Room Air 08/16/20 20:02 98.6 18 167/88 (114) 100 08/16/20 16:00 98.1 81 18 141/70 (93) 99 Intake and Output 08/16/20 08/17/20 19:00 07:00 Intake Total 480 ml 1300 ml Output Total 1200 ml 1100 ml Balance -720 ml 200 ml Intake Oral 480 ml IV Total 1300 ml Output Urine Total 1200 ml 1100 ml Laboratory Tests 08/17/20 05:55: White Blood Count 8.7, Red Blood Count 5.34, Hemoglobin 14.3, Hematocrit 43.5, Mean Corpuscular Volume 81, Mean Corpuscular Hemoglobin 26.8L, Mean Corpuscular Hemoglobin Concent 32.9, Red Cell Distribution Width 13.6, Platelet Count 179, Mean Platelet Volume 9.5, Neutrophils (%) (Auto) 69.7, Lymphocytes (%) (Auto) 18.5L, Monocytes (%) (Auto) 7.9, Eosinophils (%) (Auto) 2.3, Basophils (%) (Auto) 1.6, Sodium Level 137, Potassium Level 3.8, Chloride Level 103, Carbon Dioxide Level 24, Anion Gap 10, Blood Urea Nitrogen 9, Creatinine 0.7, Estimat Glomerular Filtration Rate > 60, Glucose Level 121H, Calcium Level 8.5, Total Bilirubin 0.6, Aspartate Amino Transf (AST/SGOT) 57H, Alanine Aminotransferase (ALT/SGPT) 123H, Alkaline Phosphatase 133H, Total Protein 7.1, Albumin 2.9L, Globulin 4.2, Albumin/Globulin Ratio 0.7L, Amylase Level 65, Lipase 500H Height (Feet): 5 Height (Inches): 1.00 Weight (Pounds): 150 General Appearance: lethargic EENT: normal ENT inspection Neck: normal alignment Cardiovascular: normal peripheral pulses, normal rate, regular rhythm Respiratory/Chest: chest wall non-tender, lungs clear, normal breath sounds Abdomen: normal bowel sounds, non tender, soft Extremities: normal inspection Edema: no edema noted Arm (L), no edema noted Arm (R), no edema noted Leg (L), no edema noted Leg (R), no edema noted Pedal (L), no edema noted Pedal (R), no edema noted Generalized Neurologic: motor weakness Skin: normal pigmentation, warm/dry Assessment/Plan Problem List: (1) HTN (hypertension) ICD Codes: I10 - Essential (primary) hypertension SNOMED: 13218051 (2) Fever ICD Codes: R50.9 - Fever, unspecified SNOMED: 114283337 (3) Cholelithiasis ICD Codes: K80.20 - Calculus of gallbladder without cholecystitis without obstruction SNOMED: 395506802, 573354701 (4) Transaminitis ICD Codes: R74.01 - Elevation of levels of liver transaminase levels SNOMED: 257834840, 154221857 (5) Pancreatitis ICD Codes: K85.90 - Acute pancreatitis without necrosis or infection, unspecified SNOMED: 12244492, 184909244 (6) Malnutrition ICD Codes: E46 - Unspecified protein-calorie malnutrition SNOMED: 03188363 (7) COVID-19 ICD Codes: U07.1 - COVID-19 SNOMED: 682222832 Status: stable, progressing, unchanged Assessment/Plan: gi sx f/u abx dc if clear by Jasson Lee DO Aug 17, 2020 14:12
--- NOTE | 2020-08-17 14:45 | NUR ---
NURSE NOTES: RN received report from Thelma and patient in bed aaoX4, showing s/s of respiratory distress on RA, denying pain. Patient states he ate a lot of meal and going to bathroom fine. Bed in lowest position and locked, call light within reach. Will continue to monitor.
[2020-08-17] MEDS ORDERED: NORVASC5 MG ORAL ×2 (14:46→16:51)
[2020-08-17] MEDS ORDERED: ZESTRIL10 M1 ORAL ×2 (14:46→16:51)
--- NOTE | 2020-08-17 15:30 | NUR ---
NURSE NOTES: RN received order to reconcile med with Dr. Jean. Dr. Jean did the med recon, however he was not in hospital so was not able to write prescriptions today. Charge nurse Santy contacted Maritza ESTRADA for prescriptions.
--- NOTE | 2020-08-17 16:18 | NUR ---
NURSE NOTES: Per pediatric social worker, patient has a place to go. Patient needs prescriptions for his discharge meds(2 blood pressure meds.). fretted instrument repairer left message to Dr. Sarmiento if patient needs to continue those meds. RN also asked DEANGELO Caba to help. SS is aware. Will follow up.
--- NOTE | 2020-08-17 16:21 | NUR ---
DISCHARGE PLANNING Pt was accepted to [facility] quarantine site [place] Address: [address] [place] [address] Ambulance to be scheduled
--- NOTE | 2020-08-17 16:43 | NUR ---
NURSE NOTES: RN was told by CM to call Dr. Morales medical sociologist. RN paged Dr. Morales's PA Ramana Salas. He will come up to 4E for prescription.
--- NOTE | 2020-08-17 16:52 | NUR ---
DISCHARGE - TRANSPORTATION SW spoke w/ Aurora from [facility] and scheduled the transportation at 6:15pm-6:30pm. RN was informed. STACEY faxed the PCS form to [facility] at [phone] as per request.
--- NOTE | 2020-08-17 17:07 | NUR ---
NURSE NOTES: RN received prescriptions from Ramana Salas and faxed to [facility] pharmacy, spoke to Marisabel who received the prescription. She will work on it. Primary nurse is aware of discharge.
--- NOTE | 2020-08-17 18:25 | NUR ---
NURSE NOTES: Received call from Erich from [facility]. Ambulance will be here around 19:30pm. Endorsed to the primary nurse.
--- NOTE | 2020-08-17 18:56 | NUR ---
NURSE NOTES: RN provided patient with patient instructions at discharge packet. Patient is aaoX4, stable. RN communicated plan of discharge with help of Jina for interpretation. Patient verbalized understanding of taking medications q 12 hrs and to measure BP before and hold if BP less than 110 and that he is to quarantine for 2 weeks in [facility]. Medications worth of 30 days were provided. RN will endorse to the next shift to remove the ID band and IV before the patient is discharged. Addendum: 08/17/20 at 1927 by Sedrick Chaparro RN RN verified belongings with the patient and patient signed the belonging list form.
--- NOTE | 2020-08-17 19:27 | NUR ---
NURSE HAND-OFF: Important Events on Shift:discharge, remove ID band and IV Patient Status: stable Diet: low fat Pending Orders: n/a Pending Results/Labs:n/a Pending MD notification:n/a Latest Vital Signs: Temperature 97.7 , Pulse 89 , B/P 144 /79 , Respiratory Rate 18 , O2 SAT 98 , Room Air, O2 Flow Rate . Vital Sign Comment: stable Latest Boothe Fall Score: 35 Fall Risk: Medium Risk Safety Measures: Call light Within Reach, Bed Alarm Zone 1, Side Rails Side Rails x2, Bed position Low and Locked. Fall Precautions: Patient Fall Education Report given to
--- NOTE | 2020-08-17 20:50 | NUR ---
NURSE NOTES: Patient in bed, awake, alert x4 and verbally responsive. Able to make needs known. Estonian speaking. All belongings with patient. Medications with patient. Educated patient regarding medication and transportation. [facility] ambulance picked up patient 2044. Iv site removed, id band removed. No s/s of distress.
--- NOTE | 2020-08-20 05:12 | Cardiology Report ---
APPROVED REPORT EKG Measurement Heart [id number] <Conclusion> Sinus tachycardia Left anterior fascicular block Abnormal ECG
--- NOTE | 2020-08-20 05:12 | Cardiology Report ---
APPROVED REPORT EXAM: Two-dimensional and M-mode echocardiogram with Doppler and color Doppler. INDICATION Shortness of Breath M-Mode DIMENSIONS IVSd1.1 (0.7-1.1cm)Left Atrium (MM)2.8 (1.6-4.0cm) LVDd4.0 (3.5-5.6cm)Aortic Root3.2 (2.0-3.7cm) PWd1.1 (0.7-1.1cm)Aortic Cusp Exc.2.0 (1.5-2.0cm) IVSs1.5 cmEPSS0.6 (>1.0cm) LVDs2.6 (2.5-4.0cm) PWs1.5 cm <Conclusion> Technically difficult study due to poor acoustic windows. Study quality precludes accurate assessment of regional wall motion. Normal left ventricular chamber size, systolic function and wall motion. Left ventricular ejection fraction estimated to be 65 %. No evidence of left ventricular hypertrophy. No evidence of pericardial effusion. All other cardiac chamber sizes are within normal limits. Focal aortic valve sclerosis with adequate cusp excursion. Mildly thickened mitral valve leaflets with normal excursion. Mild mitral annulus and aortic root calcification. Pulmonic valve not well visualized. Normal tricuspid valve structure. Subcostal views not obtainable. A color flow and spectral Doppler study was performed and revealed: No aortic regurgitation. Trace mitral regurgitation. Mitral diastolic velocities suggest mild left ventricular diastolic dysfunction (Grade I). Trace tricuspid regurgitation. Tricuspid systolic velocities suggests peak right ventricular systolic pressure of 40 mmHg, consistent with mild pulmonary hypertension.
--- NOTE | 2020-08-21 13:51 | Discharge Summary ---
Discharge Summary Discharge Summary _ Date of admission: 08/11/2020 Date of discharge: 08/17/[address] Cui History of Present Illness and Brief Hospital Course Mr. Heriberto Moncada is a 60-year-old male with no known past medical history who presented to the ED for evaluation of abdominal pain x2 days. Patient reported his abdominal pain was worse in the epigastric region that radiated diffusely. Patient denied use of drug but admitted intermittent use of alcohol. He stated that he was homeless and had been sleeping on the streets. Abdominal ultrasound revealed cholelithiasis without biliary ductal dilation. CT of abdomen and pelvis revealed peripancreatic inflammatory changes suggesting acute pancreatitis and cholelithiasis. Small hiatal hernia was also demonstrated. He was given pain medication and antibiotics and was admitted to the hospital for further management. MRCP was notable for considerable edema surrounding the pancreas in the mesenteric root and tracking along the anterior retroperitoneum. The pancreatic duct was nondilated. MRCP was indicative of acute pancreatitis. His hepatitis and HIV panel were negative. The lipase and LFTs were elevated. Patient tested positive for COVID-19 via PCR. Patient remained saturating well on room air and remained afebrile. Remdesivir was considered but was not in dicated in this case given normoxemia and elevated LFTs. His chest x-ray was notable for mild central venous congestion and right lung streaky atelectasis. He was started on empiric Zosyn. Patient initially presented with hypertension and was placed on antihypertensives. On the day of discharge, patient was feeling better, tolerating diet, voiding well, and passing flatus and bowel movement. Patient desired a placement for himself given his homelessness. Patient was accepted to [facility] quarantine site in [place]. Patient was instructed to continue isolation through 08/21/2020. Consultants: Cardiology Dr. Sarmiento Infectious disease Dr. Tellez Surgery Dr. Jean Discharge Condition Improved and stable Final diagnoses Hypertension Acute pancreatitis Covid positive pneumonia Lymphopenia Thrombocytopenia Cholelithiasis Transaminitis Malnutrition Elevated bilirubin I have been assigned to dictate discharge summary for this account. I was not involved in the patient's management Ramana Salas Aug 21, 2020 13:51
== END 2020-08-17 20:45 | DRG 282 ==
LOC: EDBD 10:10 → EMR 12:29 → 4E 12:40 → EDBEDREQ 13:49 → 4E 15:48
DX: K85.90 Acute pancreatitis without necrosis or infection, unspecified (principal); U07.1 COVID-19; J12.82 Pneumonia due to coronavirus disease 2019; E46 Unspecified protein-calorie malnutrition; Z59.0 Homelessness; I10 Essential (primary) hypertension; K80.20 Calculus of gallbladder without cholecystitis without obstruction; K76.0 Fatty (change of) liver, not elsewhere classified; D72.810 Lymphocytopenia; D69.6 Thrombocytopenia, unspecified; K44.9 Diaphragmatic hernia without obstruction or gangrene; R74.01 Elevation of levels of liver transaminase levels
CPT/HCPCS: 36415; 71045; 74177; 74181; 76700; 80053; 80202; 80307; 81003; 82140; 82150; 82248; 83690; 84484; 85025; 85610; 85730; 86703; 86705; 86709; 86803; 87040; 87081; 87340; 93005; 93306; 96361; 96365; 96372; 96375; 99285; G0480; J2405; J7030; U0002